=== PATIENT | female | born 1965 | race Caucasian/White ===

== ENCOUNTER 2017-04-05 09:30 | Outpatient (RCR) | payer BC, SELFPAY | END 2017-04-05 09:35 | disposition home or self-care (01) | LOC: PT 09:30 | PROVIDERS: Family Provider Nurse Practitioner Family; Visit Provider Podiatrist Foot & Ankle Surgery | DX: M72.2 Plantar fascial fibromatosis (principal) | CPT/HCPCS: 97010; 97014; 97016; 97033; 97035; 97110; 97140; 97760; G0283 ==

== ENCOUNTER → 2017-04-26 15:46 | Outpatient (CLI) | payer BC, SELFPAY ==
--- NOTE | 2017-04-26 | XR_ITS ---
XR hip BI w PEL1V CLINICAL INDICATION: ORDERING PHYSICIAN: Gracie Mock PATIENT AGE: 52 years COMPARISON: None FINDINGS: No fracture or dislocation. No lytic or blastic change. The joint spaces are well-preserved without significant arthritic change. IMPRESSION: Negative bilateral hips
== END ==
PROVIDERS: PCP Nurse Practitioner Family; Visit Provider Nurse Practitioner Family
DX: M25.551 Pain in right hip (principal); M25.552 Pain in left hip
CPT/HCPCS: 73521

== ENCOUNTER 2017-08-14 16:00 | Outpatient (RCR) | payer BC, SELFPAY | END 2017-08-14 16:01 | disposition home or self-care (01) | LOC: PT 16:00 | PROVIDERS: Family Provider Nurse Practitioner Family; PCP Nurse Practitioner Family; Visit Provider Orthopaedic Surgery Adult Reconstructive Orthopaedic Surgery | DX: M70.61 Trochanteric bursitis, right hip (principal) | CPT/HCPCS: 97010; 97033; 97035; 97110; 97163 ==

== ENCOUNTER 2017-08-14 16:30 | Outpatient (RCR) | payer BC, SELFPAY | END 2017-08-14 16:31 | disposition home or self-care (01) | LOC: PT 16:30 | PROVIDERS: Family Provider Nurse Practitioner Family; PCP Nurse Practitioner Family; Referring Provider Orthopaedic Surgery Adult Reconstructive Orthopaedic Surgery; Visit Provider Podiatrist Foot & Ankle Surgery | DX: G57.52 Tarsal tunnel syndrome, left lower limb (principal) | CPT/HCPCS: 97010; 97016; 97033; 97035; 97110; 97140; 97163 ==

== ENCOUNTER → 2017-09-05 14:37 | Outpatient (CLI) | payer BC, SELFPAY ==
--- NOTE | 2017-09-05 14:39 | MR_ITS ---
MR hip RT wo con HISTORY: Right hip pain worse with walking ITS.REASON: GLUTEAL MUSCLE TEAR ORDERING PHYSICIAN: Pollo Grigsby PATIENT AGE: 52 years TECHNIQUE: Multiplanar multiecho sequences performed without contrast COMPARISON: 04/26/2017 FINDINGS: No fracture or dislocation. No hip joint effusion. No abnormal bone marrow signal intensity of the right hip. No evidence of avascular necrosis. The gluteal muscles have an unremarkable appearance. Specifically, no evidence of tear of the gluteus medius or minimus muscles. There is a small cystic area in the base of the greater trochanter on the right at 4 mm nonspecific. IMPRESSION: Negative MRI of the right hip.
== END ==
PROVIDERS: Family Provider Nurse Practitioner Family; PCP Nurse Practitioner Family; Visit Provider Orthopaedic Surgery Adult Reconstructive Orthopaedic Surgery
DX: M70.61 Trochanteric bursitis, right hip (principal)
CPT/HCPCS: 73721

== ENCOUNTER 2018-03-20 14:00 | Outpatient (RCR) | payer BC, SELFPAY | END 2018-03-20 14:05 | disposition home or self-care (01) | LOC: PT 14:00 | PROVIDERS: Visit Provider Orthopaedic Surgery Adult Reconstructive Orthopaedic Surgery | DX: M25.551 Pain in right hip (principal); M70.61 Trochanteric bursitis, right hip | CPT/HCPCS: 97010; 97014; 97033; 97035; 97110; 97140; 97163; G0283 ==

== ENCOUNTER 2018-03-20 14:30 | Outpatient (RCR) | payer BC, SELFPAY | END 2018-03-20 14:35 | disposition home or self-care (01) | LOC: PT 14:30 | PROVIDERS: Visit Provider Nurse Practitioner Family | DX: G44.209 Tension-type headache, unspecified, not intractable (principal) | CPT/HCPCS: 97010; 97014; 97110; 97140; 97163; G0283 ==

== ENCOUNTER → 2018-08-23 15:48 | Outpatient (CLI) | payer BC, SELFPAY ==
--- NOTE | 2018-08-23 15:51 | MM_ITS ---
MM Dig screening mamm BI w/CAD CAD Screening COMPARISON: Digital mammograms with CAD 06/23/2016 and 02/21/2012 INDICATION: There is a history of breast cancer patient's mother diagnosed at age 50. There has been previous bilateral breast reduction surgery. TECHNIQUE: Standard CC and MLO images were obtained. R2 CAD reviewed. FINDINGS: Scattered fibroglandular densities are seen in the central portions and upper outer quadrants of both breasts. Findings are fairly symmetrical bilaterally. There is no suspicious lesion and there are no suspicious microcalcifications.. There is minimal postsurgical scarring in each breast inferior portions. IMPRESSION: Fibrofatty parenchyma with no suspicious lesion seen BI-RADS Category: 2 Benign Finding(s) RECOMMENDED FOLLOW-UP: 1YR - 1 YEAR FOLLOW-UP (A letter has been sent to the patient regarding results of the study.)
== END ==
PROVIDERS: PCP Nurse Practitioner Family; Visit Provider Nurse Practitioner Family
DX: Z12.31 Encounter for screening mammogram for malignant neoplasm of breast (principal)
CPT/HCPCS: 77067

== ENCOUNTER → 2019-04-01 08:49 | Outpatient (CLI) | payer BC, SELFPAY ==
--- NOTE | 2019-04-01 09:00 | FL_ITS ---
PROCEDURE: FL BARIUM SWALLOW CLINICAL INDICATION: dysphagia COMPARISON: No exams were available for comparison TECHNIQUE: In the upright position the patient was observed to swallow barium in both the AP and lateral view. The cervical esophagus was examined under fluoroscopy with images obtained. The patient was then placed prone in the right anterior oblique position and was observed to swallow barium with Valsalva technique . FLUOROSCOPY TIME: 46 seconds FINDINGS: There was no evidence of aspiration. There was normal peristalsis. No filling defects or mucosal abnormalities. No masses or strictures. No evidence of hiatal hernia IMPRESSION: Negative barium swallow. Dictated by: Burton Lni MD 04/01/2019 12:38 Electronically signed by Burton Lin MD in [place] 04/01/2019 12:38
== END ==
PROVIDERS: PCP Family Medicine; Visit Provider Surgery
DX: R13.10 Dysphagia, unspecified (principal)
CPT/HCPCS: 74220

== ENCOUNTER → 2019-04-11 15:29 | Outpatient (CLI) | payer BC, SELFPAY ==
--- NOTE | 2019-04-11 15:29 | US_ITS ---
PROCEDURE: US THYROID CLINICAL INDICATION: dysphagia COMPARISON: No exams were available for comparison FINDINGS: Right lobe: 4 x 1.1 x 1.1 cm Left lobe: 4.1 x 1.1 x 1.3 cm Isthmus: Unremarkable Additional findings: Homogeneous echogenicity. No discrete nodule IMPRESSION: Negative thyroid ultrasound Dictated by: Burton Lin MD 04/11/2019 17:45 Electronically signed by Burton Lin MD in [place] 04/11/2019 17:45
== END ==
PROVIDERS: PCP Psychiatry & Neurology Sleep Medicine; Visit Provider Surgery
DX: R13.14 Dysphagia, pharyngoesophageal phase (principal)
CPT/HCPCS: 76536

== ENCOUNTER → 2019-06-11 10:07 | Outpatient (CLI) | payer BC, SELFPAY ==
[2019-06-11 10:12] LABS: Adenovirus,PCR Not Detected (NotDetected); Bordetella Pertussis Not Detected (NotDetected); Chlamydophila Pneumoniae, PCR Not Detected (NotDetected); Coronavirus 19, PCR Not Detected (NotDetected); Coronavirus 229E Not Detected (NotDetected); Coronavirus NL63 Not Detected (NotDetected); Coronavirus OC43 Not Detected (NotDetected); Coronovirus HKU1,PCR Not Detected (NotDetected); Human Metapneumovirus Not Detected (NotDetected); Influenza A, PCR Not Detected (NotDetected); Influenza AH1, 2009 Not Detected (NotDetected); Influenza AH1, PCR Not Detected (NotDetected); Influenza AH3,PCR Not Detected (NotDetected); Influenza B, PCR Not Detected (NotDetected); Mycoplasma Pneumoniae, PCR Not Detected (NotDected); Parainfluenza 1, PCR Not Detected (NotDetected); Parainfluenza 2, PCR Not Detected (NotDetected); Parainfluenza 3, PCR Not Detected (NotDetected); Parainfluenza 4, PCR Not Detected (NotDetected); Respiratory Syncytial Virus Not Detected (NotDetected); Rhinovirus/Enterovirus Not Detected (NotDetected)
--- NOTE | 2019-06-12 15:43 | PC.NURSE ---
pt and Ramesh RN notified of negative COVID 19 results.
== END ==
PROVIDERS: Visit Provider Surgery
DX: Z01.818 Encounter for other preprocedural examination (principal)
CPT/HCPCS: 87581; 87633; 87798

== ENCOUNTER 2019-06-13 06:12 | Day surgery (SDC) | payer BC, SELFPAY ==
--- NOTE | 2019-06-10 13:21 | SUR.PREOP ---
06/10/19 @ 1321--PHONE CALL MADE TO PATIENT. PATIENT UNDERSTANDS THAT LAB WORK AND COVID TESTING NEEDS TO BE COMPLETED @ 1000 ON 06/11/19. PATIENT UNDERSTANDS IF LAB WORK AND COVID-19 TESTS ARE NOT COMPLETED BY 12PM ON THAT DATE, THE SURGERY SCHEDULED WILL BE CANCELLED AND RESCHEDULED FOR ANOTHER TIME.
[2019-06-11 13:47] VITALS: BMI 28.3
[2019-06-13] VITALS (9 sets, daily range): BP systolic 98–137; BP diastolic 47–72; PULSE 47–66; RESP 14–18; TEMP 36.2–36.3; O2SAT 95–100
--- NOTE | 2019-06-13 08:02 | P.PN_ITS ---
[facility] Anesthesia Checklist - Structural Data Admitted From: Home Planned Operative Procedure/s: egd/colonoscopy Consent for Planned Operative Procedure(s) Verified: Yes - Airway Assessment C-Spine Mobility Assessed: Yes TMJ Mobility Assessed: Yes Dentition: Good Dentition - Neurological Assessment Level of Consciousness: Awake, Alert, Appropriate - Anesthesia Plan Anesthesia Risk discussed: Yes Anesthesia Plan: Verified ASA Class: II Anesthesia Type: MAC [facility] History I have reviewed the patient's past medical history: Yes Medical History: Denies:: Cancer, Diabetes Mellitus Type 1, Diabetes Mellitus Type 2, Hypertension, Internal Pacemaker, MRSA, Seizures *Have you ever received a pneumonia vaccine?: No *Have you received a flu vaccine this season?: No Anesthesia experience/problems:: none Other Surgeries: Yes: Colonoscopy, EGD, Hernia Repair, Hysterectomy-Total, Hysterectomy-Partial, Tubal Ligation, Other. No: Pacemaker Amputation: No - *Social History Educational Level: Completed High School Smoking Status: Never smoker Alcohol Intake: never Substance Use Type: denies use *Occupational Status:: retired Housing: house Household Members: spouse *Travel in the last 8 weeks: None Family Hx:: Cancer, Diabetes
--- NOTE | 2019-06-13 08:15 | HMH.SCOPE ---
- Procedure: Date: 06/13/19 Procedure Performed:: Esophagogastroduodenoscopy with biopsy Colonoscopy with polypectomy Indications:: Dysphagia History of colon polyps Performing Provider:: Remberto Brooks MD Referring Provider:: . Sedation:: Monitored anesthesia care Procedure:: After informed consent was obtained the patient was taken to the endoscopy suite. Sedation ensued after the patient was transferred to the left lateral decubitus position. Pulse, blood pressure, and oxygen saturation were monitored throughout the procedure. The endoscope was advanced beyond the duodenal bulb. Retroflexion within the gastric lumen was accomplished. The gastroscope was carefully removed. Digital rectal exam revealed no significant abnormality. The colonoscope was placed in position. The entire colon was evaluated. The colonoscope was carefully removed and the patient was transferred to recovery in stable condition. Please see findings and specimens below for detail. Findings:: Inlet patch between 15 and 20 cm Gastroesophageal junction at 38 cm Mild streaking distal gastritis External hemorrhoidal tags Moderate to poor bowel preparation Significant lack of relaxation Scattered sigmoid diverticulosis (mild) Polyps (see specimens) Specimens:: Biopsy of gastric antrum Biopsy of gastric inlet patch between 15 and 20 cm Sessile/lobulated right colon polyp and adjacent polyp Transverse colon polyp (snare) Splenic flexure polyp Recommendations:: Follow-up pathology Timing of repeat colonoscopy is pending pathology but will likely be around 2 years secondary to history of significant polyps, limited bowel preparation, and lack of relaxation. Complications:: No immediate Estimated blood obtained (mL): 1
--- NOTE | 2019-06-13 08:55 | SUR.PHASEII ---
PAUL SCHWARTZ CRNA NOTIFIED THAT PT'S HEART RATE HAS BEEN 43-49. PT HR WAS 56 ON ADMIT. NO NEW ORDERS GIVEN. PT OK TO BE DISCHARGED HOME. R/V
== END 2019-06-13 09:16 | disposition home or self-care (01) ==
LOC: OUTP 06:13
PROVIDERS: PCP Family Medicine; Visit Provider Surgery
PROC: 0DJ08ZZ Inspection of Upper Intestinal Tract, Via Natural or Artificial Opening Endoscopic (ICD-10-PCS; CPT 43235; principal; 2019-06-13 07:30)
DX: R13.10 Dysphagia, unspecified (principal); K29.70 Gastritis, unspecified, without bleeding; Z86.010 Personal history of colon polyps; D12.2 Benign neoplasm of ascending colon; D12.3 Benign neoplasm of transverse colon
CPT/HCPCS: 45385; 45380; 43239; J2704

== ENCOUNTER → 2019-07-09 15:22 | Outpatient (CLI) | payer BC, SELFPAY ==
--- NOTE | 2019-07-09 15:29 | XR_ITS ---
PROCEDURE: XR FOOT WT BEARING LT 3V CLINICAL INDICATION: pain COMPARISON: FTL3 FOOT-LT-3 VIEWS from 07/10/2013 FINDINGS: No fracture or dislocation. No lytic or blastic change. There is normal mineralization. The joint spaces are well-preserved. No significant degenerative/arthritic changes. No erosive changes evident. Other findings:None. IMPRESSION: No acute findings. Dictated by: Burton Lin MD 07/09/2019 16:58 Electronically signed by Burton Lin MD in [place] 07/09/2019 16:58
--- NOTE | 2019-07-09 15:29 | XR_ITS ---
PROCEDURE: XR FOOT WT BEARING RT 3V CLINICAL INDICATION: pain Pain COMPARISON: FTL3 FOOT-LT-3 VIEWS from 07/10/2013 FINDINGS: No fracture or dislocation. No lytic or blastic change. There is normal mineralization. The joint spaces are well-preserved. No significant degenerative/arthritic changes. No erosive changes evident. Other findings:None. IMPRESSION: No acute findings. Dictated by: Burton Lin MD 07/09/2019 16:57 Electronically signed by Burton Lin MD in [place] 07/09/2019 16:57
== END ==
PROVIDERS: PCP Family Medicine; Visit Provider Podiatrist
DX: M79.672 Pain in left foot (principal); M79.671 Pain in right foot
CPT/HCPCS: 73630

== ENCOUNTER → 2019-08-20 15:19 | Outpatient (CLI) | payer BC, SELFPAY ==
[2019-08-20 16:21] LABS: Basophils # 0.1 K/mm3 (0-0.2); Eosinophils # 0.1 K/mm3 (0.0-0.4); Hematocrit 35.4 % (37.0-47.0); Lymphocytes % 35.1 % (10-50); Mean Corpuscular HGB Conc 33.8 g/dL (31.8-35.4); Mean Corpuscular Hemoglobin 31.4 pg (27.0-31.2); Mean Corpuscular Volume 92.7 fl (81-99); Monocytes # 0.2 K/mm3 (0.1-1.0); Monocytes % 4.1 % (1.7-9.3); Neutrophils # 3.3 K/mm3 (1.8-7.8); Neutrophils % 58.8 % (37.0-80.0); Platelet Count 332 K/mm3 (142-424); Red Blood Count 3.82 M/mm3 (4.20-5.40); Red Cell Distribution Width 12.9 % (11.5-17.5); White Blood Count 5.7 K/mm3 (4.8-10.8)
[2019-08-20 18:05] LABS: Alanine Aminotransferase 14 U/L (12-78); Albumin Level 4.2 g/dl (3.5-5.0); Albumin/Globulin Ratio 1.9 (1.1-1.8); Alkaline Phosphatase 94 U/L (38-126); Anion Gap 11.1 mEq/L (5-15); Aspartate Amino Transferase 25 U/L (14-36); Bilirubin,Total 0.4 mg/dl (0.2-1.3); Blood Urea Nitrogen 16 mg/dl (7-17); Calcium 9.2 mg/dl (8.4-10.2); Carbon Dioxide 26 mmol/L (22.0-30.0); Chloride 107 mmol/L (98-107); Creatine Kinase 96 U/L (30-135); Estimated Glomerular Filt Rate 75 ml/min (>60); GFR (African American) 91 ML/MIN (>60); Globulin 2.2 g/dL (1.3-3.2); Glucose 86 mg/dl (74-100); Potassium 4.1 mmoL/L (3.5-5.1); Sodium 140 mmol/L (136-145); Total Protein,Serum 6.4 g/dl (6.3-8.2); Uric Acid 4.1 mg/dl (2.5-6.2)
[2019-08-20 18:11] LABS: C-Reactive Protein 0.4 mg/L (0-4)
[2019-08-20 18:37] LABS: Thyroid Stimulating Hormone 3.92 uIU/mL (0.465-4.68)
[2019-08-22 11:18] LABS: Hep A Ab, IgM Negative (Negative); Hepatitis B Core Antibody IgM Negative (Negative); Hepatitis B Surface Antigen Negative (Negative)
[2019-08-22 12:34] LABS: Hepatitis C Antibody 0.1 s/co ratio (0.0-0.9)
[2019-08-22 17:04] LABS: RA Latex Turbid. <10.0 IU/mL (0.0-13.9)
[2019-08-23 11:24] LABS: QuantiFERON-TB Gold Plus Negative (Negative)
== END ==
PROVIDERS: Visit Provider Internal Medicine Rheumatology
DX: M06.9 Rheumatoid arthritis, unspecified (principal); M19.079 Primary osteoarthritis, unspecified ankle and foot; M25.50 Pain in unspecified joint; M54.9 Dorsalgia, unspecified; M79.643 Pain in unspecified hand; R20.0 Anesthesia of skin; Z79.899 Other long term (current) drug therapy
CPT/HCPCS: 36415; 80053; 80074; 82550; 84443; 84550; 84681; 85025; 86140; 86431; 86480

== ENCOUNTER → 2019-09-10 15:53 | Outpatient (CLI) | payer BC, SELFPAY ==
--- NOTE | 2019-09-10 15:56 | MM_ITS ---
PROCEDURE: MM DIG SCREENING MAMM BI W/CAD Digital Breast Tomosynthesis Included CLINICAL INDICATION: SCREENING There is a history of breast cancer patient's mother diagnosed at age 50. There has been previous bilateral breast reduction surgery. COMPARISON: MG DMBAV DIG MAMM- ESTEBAN ADD VIEWS from 08/23/2012 MG DMSB DIG MAMM-SCREEN ESTEBAN W/CAD from 06/23/2016 MG DIG MAMM-SCREEN ESTEBAN from 08/23/2018 TECHNIQUE: Standard CC and MLO images and 3D Tomosynthesis was obtained. R2 CAD reviewed. FINDINGS: Scattered fibroglandular densities are seen in both breasts on a background of primarily fatty breast parenchyma. There are stable asymmetric glandular elements in the superior aspects of both breasts. There are couple of benign-appearing microcalcifications in each breast. There is no suspicious lesion in either breast and no suspicious microcalcifications. IMPRESSION: Fibrofatty parenchyma with no suspicious lesions seen BI-RAD Category: 2 Benign Finding(s) FOLLOW-UP: 1YR 1 Year Follow-up (A letter has been sent to the patient regarding results of the study.) Dictated Dr. Gene Fonseca MD 09/13/2019 12:10 Dr. Gene Brothers MD in [place] 09/13/2019 12:10
== END ==
PROVIDERS: PCP Family Medicine; Visit Provider Family Medicine
DX: Z12.31 Encounter for screening mammogram for malignant neoplasm of breast (principal)
CPT/HCPCS: 77063; 77067

== ENCOUNTER 2019-09-10 22:07 | Emergency (ER) | payer BC, SELFPAY ==
--- NOTE | 2019-09-10 22:14 | HMH.EDGENADL ---
ED Disposition Clinical Impression: Cutaneous abscess Qualifiers: Site of cutaneous abscess: face Qualified Code(s): L02.01 - Cutaneous abscess of face Disposition: Home, Self-Care Condition on Discharge: Good Instructions: DI for Incision and Drainage of a Skin Abscess, DI for Skin Abscess Additional Instructions: Clindamycin as prescribed. Additional instructions for ABSCESS: Clean area with soap and water daily. Return to the emergency department if increasing pain, swelling, redness, redstreaks or fever greater than 101 degrees. Prescriptions: clindamycin HCL [Clindamycin HCl 300mg Cap] 300 mg PO Q6 #20 cap Transmission Status: Pending to [facility] Referrals: Toña Molina MD [Primary Care Provider] - - Critical Care Critical Care Time: No Attestation: On 09/10/19, the high probability of a clinically significant, sudden or life threatening deterioration of the following system(s) required my full and direct attention, intervention and personal management. The time I documented below is in addition to time spent performing reported procedures but includes the following listed in this critical care notation. Medical Decision Making - Tal Inquiry Pt receiving controlled substance: No Vital Signs: 09/10/19 22:19 Temperature 98.5 F Temperature Source Oral Pulse Rate [Right] 63 Respiratory Rate 18 Blood Pressure [Right Arm] 126/71 Blood Pressure Mean [Right Arm] 89 Blood Pressure Source [Right Arm] Automatic Cuff Blood Pressure Position [Right Arm] Sitting 02 Sat by Pulse Oximetry 97 Oxygen Delivery Method Room Air General Adult HPI - General Stated complaint: possible spider bite R eye Time Seen by Provider: 09/10/19 22:22 - History of Present Illness HPI narrative: She has a sore beside her right eye. It started this morning and got worse throughout the day. Some mild swelling around her eye. She states she walked through a cobweb this morning,. She thinks it might be a spider bite. - Related Data Home Medications Medication Instructions Recorded Confirmed omeprazole 40 mg capsule,delayed 40 mg PO DAILY 03/27/19 07/30/19 release Previous Rx's Medication Instructions Recorded ibuprofen 800 mg tablet 800 mg PO BID #60 tab 07/09/19 clindamycin HCL [Clindamycin HCl 300 mg PO Q6 #20 cap 09/10/19 300mg Cap] Allergies Allergy/AdvReac Type Severity Reaction Status Date / Time morphine [MORPHINE] Allergy Unknown ITCHING Verified 07/30/19 14:33 Sulfa (Sulfonamide Allergy Unknown NA-NAUSEA/V Verified 07/30/19 14:33 Antibiotics) OMITING [SULFA (SULFONAMIDE ANTIBIOTICS)] [facility] History - Hepatitis A Screen Attestation statement:: This patient has been screened for Hepatitis A risk factors. I have reviewed the patient's past medical history: Yes Medical History: Reports:: Gastroesophageal Reflux Disease(GERD) Denies:: Cancer, Diabetes Mellitus Type 1, Diabetes Mellitus Type 2, Hypertension, Internal Pacemaker, MRSA, Seizures Other Medical History: Reports: Sinus Problems Other Surgeries: Yes: Colonoscopy, EGD, Hernia Repair, Hysterectomy-Total, Hysterectomy-Partial, Tubal Ligation, Other. No: Pacemaker Amputation: No Comment: breast reduction,rt shoulder, elbow and wrist sx, left foot sx - Social History Smoking Status: Never smoker Alcohol Intake: never Substance Use Type: denies use Occupational Status: retired Housing: house Household Members: spouse Family Hx:: Cancer, Diabetes ROS Obtained: Yes Systems reviewed as appropriate & no additional complaints - Constitutional Constitutional: Denies fever(s) - Integumentary/Breasts Skin/Breast: Reports as per HPI, Reports boil Physical Exam - General General appearance: alert, in no apparent distress - Head Head exam: atraumatic, normocephalic - Eye Eye exam: Present: normal appearance, PERRL, EOMI - Expanded Eye Exam Comment: 3 mm pu
[2019-09-10 22:19] VITALS: BP 126/71; PULSE 63; RESP 18; TEMP 36.9; O2SAT 97; BMI 30.4
[2019-09-10 22:42] VITALS: BP 121/71; PULSE 72; RESP 18; TEMP 36.7
== END 2019-09-10 22:44 | disposition home or self-care (01) ==
PROVIDERS: Emergency Provider Emergency Medicine; PCP Family Medicine
DX: L02.01 Cutaneous abscess of face (principal); K21.9 Gastro-esophageal reflux disease without esophagitis; Z88.2 Allergy status to sulfonamides
CPT/HCPCS: 10060; 99281; 99282

== ENCOUNTER 2019-10-16 15:53 | Emergency (ER) | payer BC, SELFPAY ==
[2019-10-16 16:02] VITALS: BP 128/90; PULSE 61; RESP 18; O2SAT 97; BMI 30.1
[2019-10-16 16:13] LABS: Apearance,Urine Clear (Clear); Color,Urine Yellow (Yellow)
[2019-10-16 16:14] LABS: Bilirubin,Urine Negative (Negative); Blood, Urine Negative (Negative); Glucose,Urine (UA) Negative (Negative); Ketones,Urine Negative (Negative); PH,Urine 5.5 (5.0-8.5); Protein,Urine Negative (Negative); UTC Leukocyte Esterase,Urine Negative (Negative); UTC Nitrate,Urine Negative (Negative); Urobilinogen,Urine 0.2 EU/dl (0.2)
--- NOTE | 2019-10-16 16:21 | XR_ITS ---
PROCEDURE: XR KUB CLINICAL INDICATION: ABD PAIN COMPARISON: CT ABDPELW CT ABD PELVIS W/ CONTRAST from 08/19/2016 FINDINGS: Mild amount of retained colonic feces. Nonspecific pelvic calcifications are present consistent with phleboliths. There is a small calcific density in the left mid abdominal region may be due to small renal stone at 2 mm. IMPRESSION: Moderate amount of colonic feces with possible left nephrolithiasis. Dictated by: Burton Lin MD 10/16/2019 17:14 Burton Lin MD in [place] 10/16/2019 17:14
--- NOTE | 2019-10-16 16:22 | HMH.EDUTC ---
[facility] [place] Clinical Impression: Constipation Qualifiers: Constipation type: unspecified constipation type Qualified Code(s): K59.00 - Constipation, unspecified Disposition: Home, Self-Care Condition on Discharge: Good Instructions: Kidney Stones -- Adult, Constipation, DI for Constipation Additional Instructions: Increase dietary fiber intake and increase Fluid intake *Over the counter Magnesium Citrate and/or Mirlax may help with Constipation Return if needed Follow up with Family doctor if no improvement or any worsening of symptoms Straight to ER if any life threatening symptoms Prescriptions: polyethylene glycoL 3350 [Miralax 17gm Packet] 17 gm PO DAILY #30 packet Transmission Status: Received by [facility] Referrals: Toña Molina MD [Primary Care Provider] - As needed Time of Disposition: 17:25 Medical Decision Making - Tal Inquiry Pt receiving controlled substance: No Tal was queried for this patient: No Vital Signs: 10/16/19 16:02 10/16/19 17:34 Temperature 98.0 F Temperature Source Oral Pulse Rate 61 Pulse Rate [Radial] 61 Respiratory Rate 18 18 Blood Pressure 128/90 Blood Pressure [Right Arm] 128/90 Blood Pressure Mean [Right Arm] 102 Blood Pressure Source Automatic Cuff Blood Pressure Source [Right Arm] Automatic Cuff Blood Pressure Position Sitting Blood Pressure Position [Right Arm] Sitting 02 Sat by Pulse Oximetry 97 Oxygen Delivery Method Room Air Room Air - Lab Data Lab Results 10/16/19 16:05: Urine Color Yellow, Urine Appearance Clear, Urine pH 5.5, Ur Specific Cushing 1.020, Urine Protein Negative, Urine Glucose (UA) Negative, Urine Ketones Negative, Urine Blood Negative, Urine Nitrate Negative, Urine Bilirubin Negative, Urine Urobilinogen 0.2, Ur Leukocyte Esterase Negative Orders (Tests/Meds): ED MEDICATIONS Discontinued Medications Generic Name Dose Route Start Last Admin Trade Name Freq PRN Reason Stop Dose Admin Ketorolac Tromethamine 60 mg 10/16/19 17:05 10/16/19 17:11 Toradol 60mg/2ml Vial IM 10/16/19 17:06 60 mg ONCE ONE Administration - Radiology Data #1 Image(s): KUB Image Reviewed: Yes I have reviewed radiologist's interpretation Moderate amount of colonic feces with possible left nephrolithiasis. Medical Decision Narrative: Patient advised that she took Ibuprofen around 6am this morning Discussed with patient about pain and complaint and recommended transfer to the ED for further work up and evaluation and discussed with patient about transfer and ?kidney stone in left kidney and Radiologist reading xray with moderate amount of colonic feces and she advised that she would try to take something to help with Constipation and follow up immediately if no improvement or any worsening of symptoms [facility] [place] HPI - General Stated complaint: Abd&Back Pain Time Seen by Provider: 10/16/19 16:22 Mode of Arrival: Ambulatory Source of Information: Patient Limitations: No Limitations Description of Symptoms (Recalled from Triage Doc. by RN): cramping in lower back and stomach. HEENT Symptoms (Recalled from RN notes): No Resp Symptoms (Recalled from RN notes): No Skin Symptoms (Recalled from RN notes): No MS Symptoms (Recalled from RN notes): No Functional Status (Recalled from RN notes): wnl - History of Present Illness Provider Complaint: Patient states that a couple days ago she was having achy like feeling in her lower back area and now that has stopped but she is having cramping like pain in her lower abdomen for the last 2 days States that she was told about a year or so ago that she had a stone in one of her kidneys but not sure if she ever passed it or not States that cramping like pain is constant and has kept her up at night State that she thought she may have been constipated but not sure so she took exlax and has had soft stool for last couple of days States that today she is still having cramp
[2019-10-16 17:34] VITALS: BP 128/90; PULSE 61; RESP 18; TEMP 36.7; O2SAT 97
== END 2019-10-16 17:35 | disposition home or self-care (01) ==
PROVIDERS: Emergency Provider Nurse Practitioner; PCP Family Medicine
DX: K59.00 Constipation, unspecified (principal); K21.9 Gastro-esophageal reflux disease without esophagitis; Z88.2 Allergy status to sulfonamides; Z88.5 Allergy status to narcotic agent
CPT/HCPCS: 74018; 81003; 96372; 99202

== ENCOUNTER → 2019-12-30 16:22 | Outpatient (CLI) | payer BC, SELFPAY ==
--- NOTE | 2019-12-30 16:26 | XR_ITS ---
PROCEDURE: XR CERVICAL SPINE 5V CLINICAL INDICATION: Cervicalgia COMPARISON: No exams were available for comparison FINDINGS: No fracture or dislocation. No lytic or blastic change. There is normal mineralization. The joint spaces are well-preserved. No significant degenerative/arthritic changes. No erosive changes evident. Other findings:None. IMPRESSION: No acute findings. Dictated by: Burton Lin MD 12/30/2019 17:02 Burton Lin MD in [place] 12/30/2019 17:02
== END ==
PROVIDERS: PCP Family Medicine; Visit Provider Family Medicine
DX: M54.2 Cervicalgia (principal)
CPT/HCPCS: 72050

== ENCOUNTER → 2020-02-19 09:36 | Outpatient (CLI) | payer BC, SELFPAY ==
[2020-02-19 10:13] LABS: Basophils # 0.1 K/mm3 (0-0.2); Basophils % 1.2 % (0.1-2.0); Eosinophils % 0.7 % (0.1-12.0); Hemoglobin 13.5 g/dL (12.2-16.2); Lymphocytes # 2.2 K/mm3 (0.7-4.5); Lymphocytes % 39.9 % (10-50); Mean Corpuscular HGB Conc 32.1 g/dL (31.8-35.4); Mean Corpuscular Hemoglobin 30.5 pg (27.0-31.2); Mean Corpuscular Volume 94.9 fl (81-99); Mean Platelet Volume 7.9 fl (7.4-10.4); Monocytes # 0.2 K/mm3 (0.1-1.0); Monocytes % 4.4 % (1.7-9.3); Neutrophils % 53.7 % (37.0-80.0); Platelet Count 370 K/mm3 (142-424); Red Blood Count 4.42 M/mm3 (4.20-5.40); Red Cell Distribution Width 13.5 % (11.5-17.5); White Blood Count 5.5 K/mm3 (4.8-10.8)
[2020-02-19 10:42] LABS: Erythrocyte Sedimentation Rate 15 mm/hr (0-30)
[2020-02-19 11:29] LABS: Alanine Aminotransferase 13 U/L (12-78); Albumin Level 4.2 g/dl (3.5-5.0); Albumin/Globulin Ratio 1.6 (1.1-1.8); Alkaline Phosphatase 84 U/L (38-126); Anion Gap 10.4 mEq/L (5-15); Aspartate Amino Transferase 22 U/L (14-36); Bilirubin,Total 0.6 mg/dl (0.2-1.3); Blood Urea Nitrogen 13 mg/dl (7-17); Calcium 9.9 mg/dl (8.4-10.2); Carbon Dioxide 27 mmol/L (22.0-30.0); Chloride 107 mmol/L (98-107); Estimated Glomerular Filt Rate 75 ml/min (>60); GFR (African American) 91 ML/MIN (>60); Globulin 2.7 g/dL (1.3-3.2); Glucose 99 mg/dl (74-100); Potassium 4.4 mmoL/L (3.5-5.1); Sodium 140 mmol/L (136-145); Total Protein,Serum 6.9 g/dl (6.3-8.2)
[2020-02-19 11:37] LABS: C-Reactive Protein 0.6 mg/L (0-4)
== END ==
PROVIDERS: Visit Provider Internal Medicine Rheumatology
DX: M25.50 Pain in unspecified joint (principal); Z79.1 Long term (current) use of non-steroidal anti-inflammatories (NSAID)
CPT/HCPCS: 36415; 80053; 85025; 85651; 86140

== ENCOUNTER 2020-03-01 18:12 | Emergency (ER) | payer BC, SELFPAY ==
[2020-03-01 18:15] VITALS: BP 122/75; PULSE 78; RESP 20; TEMP 36.9; O2SAT 98; BMI 29.5
--- NOTE | 2020-03-01 18:36 | HMH.EDUTC ---
[facility] [place] Disposition Clinical Impression: Sinusitis Qualifiers: Sinusitis location: unspecified location Chronicity: unspecified Qualified Code(s): J32.9 - Chronic sinusitis, unspecified Disposition: Home, Self-Care Condition on Discharge: Good Instructions: Sinusitis, Sinus Headache, DI for Sinusitis, DI for COVID-19 (Suspected or Confirmed ), Coronavirus Disease 2019, Preventing the Spread of Coronavirus Discharge Instructions Additional Instructions: *Monitor Temp, Over the counter Motrin or Tylenol as directed/as needed Tylenol every 4 hours and Motrin every 6 hours (as long as your family doctor has told you that you can take it) for fever or pain. and straight to ER if unable to lower temp less than 101.0 after medication given *Warm salt water gargles may help to soothe the throat *Throat Lozenges *Warm fluids like tea with honey may help to soothe the throat *Sleep elevated *Humidifier/Vaporizer Your throat swab was sent for culture. Those results are typically sent to your primary care. Be sure to follow up in 2-3 days with your family doctor/primary care physician if no improvement so they can review those result and treat if necessary. If you don?t have a primary care doctor, I recommend you get one but in the mean time, you will have to return to a walk in clinic Follow up IMMEDIATELY for new or worsening symptoms or no Noticeable improvement over the next 48-72 hours. 911 for difficulty breathing or swallowing You were tested for today for COVID19 your test result should be back in the next 24-48 hours, you may call to the [facility] to see if your test results are back in the next 48 hours [phone] [facility] hours are 9am-9pm You was given a handout with instructions for Self Quarantine and Self isolation for while you wait on test results and what to do if they are positive If you are positive the Health Dept will be contacting you also Prescriptions: Azithromycin [Z-Fidel 250mg Tab] 250 mg PO DIRECTED #6 tab Transmission Status: Received by [facility] Referrals: Toña Molina MD [Primary Care Provider] - Medical Decision Making - Tal Inquiry Pt receiving controlled substance: No Tal was queried for this patient: No Vital Signs: 03/01/20 18:15 03/01/20 19:04 Temperature 98.4 F 98.4 F Temperature Source Oral Pulse Rate 78 Pulse Rate [Right Brachial] 78 Respiratory Rate 20 20 Blood Pressure 122/75 Blood Pressure [Right Arm] 122/75 Blood Pressure Mean [Right Arm] 90 Blood Pressure Source [Right Arm] Automatic Cuff Blood Pressure Position [Right Arm] Sitting 02 Sat by Pulse Oximetry 98 Oxygen Delivery Method Room Air - Lab Data Lab results reviewed: Yes: I reviewed the patient's lab results. Lab Results 03/01/20 18:23: Influenza Type A Ag Negative, Influenza Type B Ag Negative 03/01/20 18:23: Strep Scn Rapid Clinic Negative Orders (Tests/Meds): ED MEDICATIONS Discontinued Medications Generic Name Dose Route Start Last Admin Trade Name Alexis PRN Reason Stop Dose Admin Methylprednisolone Sodium Succinate 125 mg 03/01/20 18:41 03/01/20 18:53 Methylprednisolone Sod Succ 125mg Vial IM 03/01/20 18:42 125 mg ONCE ONE Administration ORDERS Category Date Time Status Covid-19 Nasal PCR ([facility]) Routine Lab 03/01/20 18:20 Received Strep Screen Confirmation Stat Micro 03/01/20 18:23 [facility]ceived [facility] HPI - General Stated complaint: covid test Time Seen by Provider: 03/01/20 18:36 Mode of Arrival: Ambulatory Source of Information: Patient Limitations: No Limitations Description of Symptoms (Recalled from Triage Doc. by RN): PATIENT C/O HEADACHE, NASAL DRAINAGE, COUGH, AND NAUSEA X 2 DAYS HEENT Symptoms (Recalled from RN notes): No Resp Symptoms (Recalled from RN notes): No Skin Symptoms (Recalled from RN notes): No MS Symptoms (Recalled from RN notes): No Functional Status (Recalled from RN notes): WNL - History of Present Illness Provider
[2020-03-01 18:46] LABS: UTC Influenza A Antigen Negative (Negative); UTC Strep Screen (Rapid) Negative (Negative)
[2020-03-01 18:48] LABS: UTC Influenza B Antigen Negative (Negative)
[2020-03-01 19:04] VITALS: BP 122/75; PULSE 78; RESP 20; TEMP 36.9; O2SAT 98
== END 2020-03-01 19:07 | disposition home or self-care (01) ==
PROVIDERS: Emergency Provider Nurse Practitioner; PCP Family Medicine
DX: Z20.822 Contact with and (suspected) exposure to COVID-19 (principal); J32.9 Chronic sinusitis, unspecified; K21.9 Gastro-esophageal reflux disease without esophagitis
CPT/HCPCS: 87804; 87880; 96372; 99202; G0463; U0003

== ENCOUNTER 2020-09-17 18:25 | Emergency (ER) | payer BC, SELFPAY ==
[2020-09-17 18:26] VITALS: BP 140/71; PULSE 66; RESP 16; TEMP 37; O2SAT 98; BMI 33.6
--- NOTE | 2020-09-17 18:47 | CT_ITS ---
PROCEDURE INFORMATION: Exam: CT Abdomen And Pelvis Without Contrast Exam date and time: 09/17/2020 6:47 PM Age: 55 years old Clinical indication: Abdominal pain; Localized; Patient HX: Lower abd pain with nausea TECHNIQUE: Imaging protocol: Computed tomography of the abdomen and pelvis without contrast. Radiation optimization: All CT scans at this facility use at least one of these dose optimization techniques: automated exposure control; mA and/or kV adjustment per patient size (includes targeted exams where dose is matched to clinical indication); or iterative reconstruction. COMPARISON: ABDPELW CT ABD PELVIS W/ CONTRAST 08/19/2016 11:14 AM FINDINGS: Liver: Normal. No mass. Gallbladder and bile ducts: Normal. No calcified stones. No ductal dilation. Pancreas: Normal. No ductal dilation. Spleen: Normal. No splenomegaly. Adrenal glands: Normal. No mass. Kidneys and ureters: Two punctate calculi are seen in the right kidney lower pole. No hydronephrosis. On the left, 2 calculi are seen in the upper pole. The larger measures 4 mm. These are nonobstructing. No hydronephrosis. Stomach and bowel: Unremarkable. No obstruction. No mucosal thickening. Appendix: No evidence of appendicitis. Intraperitoneal space: Unremarkable. No free air. No significant fluid collection. Vasculature: Unremarkable. No abdominal aortic aneurysm. Lymph nodes: Unremarkable. No enlarged lymph nodes. Urinary bladder: The bladder is under distended. Reproductive: Status post hysterectomy. Bones/joints: Unremarkable. No acute fracture. Soft tissues: Unremarkable. IMPRESSION: 1. No acute intra-abdominal pathology. 2. Low burden bilateral nonobstructing nephrolithiasis.
--- NOTE | 2020-09-17 18:49 | HMH.EDABDPAI ---
ED Disposition Condition on Discharge: Good - Critical Care Critical Care Time: No <Wilner Sharif - Last Filed: 09/17/20 19:32> <Edenilson Moreno - Last Filed: 09/17/20 21:33> Clinical Impression: Abdominal pain Qualifiers: Abdominal location: lower abdomen, unspecified Qualified Code(s): R10.30 - Lower abdominal pain, unspecified Disposition: Home, Self-Care Instructions: DI for Acute Abdominal Pain Additional Instructions: call pcp in am Referrals: Toña Molina MD [Primary Care Provider] - Attestation: On 09/17/20, the high probability of a clinically significant, sudden or life threatening deterioration of the following system(s) required my full and direct attention, intervention and personal management. The time I documented below is in addition to time spent performing reported procedures but includes the following listed in this critical care notation. Medical Decision Making - Medical Records Medical records reviewed: Yes: I reviewed the patient's medical records. - Tal Inquiry Pt receiving controlled substance: No - Lab Data Lab results reviewed: Yes: I reviewed the patient's lab results. Result diagrams: 09/17/20 18:46 09/17/20 18:46 <Wilner Sharif - Last Filed: 09/17/20 19:32> - Lab Data Result diagrams: 09/17/20 18:46 09/17/20 18:46 - CT Data CT Scan: Abdomen, Pelvis Time Received: 21:[address] Reviewed: Yes: I have viewed the radiologist's interpretation Preliminary Findings: Abnormal (see report ) <Edenilson Moreno - Last Filed: 09/17/20 21:33> Vital Signs: 09/17/20 18:26 Temperature 98.6 F Temperature Source Oral Pulse Rate [Radial] 66 Respiratory Rate 16 Blood Pressure [Right Arm] 140/71 Blood Pressure Mean [Right Arm] 94 Blood Pressure Position [Right Arm] Sitting 02 Sat by Pulse Oximetry 98 Oxygen Delivery Method Room Air - Lab Data Lab Results 09/17/20 18:30: Urine Color Yellow, Urine Appearance Clear, Urine pH 6.0, Ur Specific [place] <= 1.005, Urine Protein Negative, Urine Glucose (UA) Negative, Urine Ketones Negative, Urine Blood Negative, Urine Nitrate Negative, Urine Bilirubin Negative, Urine Urobilinogen 0.2, Ur Leukocyte Esterase 1+ A, Urine RBC None, Urine WBC Occasional, Ur Squamous Epith Cells Occasional, Urine Bacteria None 09/17/20 18:46: WBC 8.1, RBC 4.13 L, Hgb 12.6, Hct 36.3 L, MCV 87.9, MCH 30.6, MCHC 34.8, RDW 13.4, Plt Count 389, MPV 7.8, Neut % (Auto) 64.8, Lymph % (Auto) 29.8, Stanton % (Auto) 3.9, Eos % (Auto) 0.6, Baso % (Auto) 0.9, Neut # (Auto) 5.2, Lymph # (Auto) 2.4, Stanton # (Auto) 0.3, Eos # (Auto) 0.1, Baso # (Auto) 0.1 09/17/20 18:46: Sodium 141, Potassium 3.6, Chloride 108 H, Carbon Dioxide 24, Anion Gap 12.6, BUN 15, Creatinine 0.90, Estimated Creat Clear 98, Estimated GFR 65, Est GFR ( Amer) 79, Glucose 88, Calcium 9.2, Total Bilirubin 0.4, AST 35, ALT 26, Alkaline Phosphatase 108, Total Protein 7.4, Albumin 4.6, Globulin 2.8, Albumin/Globulin Ratio 1.6 09/17/20 18:46: Lipase 123 Orders (Tests/Meds): ORDERS Category Date Time Status Urine Culture Stat Micro 09/17/20 18:30 Received Medical Decision Narrative: Labs reassuring. No signs of biliary obstruction or pancreatitis. No UTI. CT scan pending. Patient care transferred to Dr. Moreno at 1999. (Wilner Sharif) asked pt to call pcp in am (Edenilson Moreno) Abdominal Pain HPI - General Mode of Arrival: Ambulatory Limitations: No Limitations Description of Symptoms (Recalled from ER Triage Doc. by RN): TO ED PER [employer] CAR WITH C/O LOWER ABD PAIN LOWER BACK PAIN X 2 WEEKS +NAUSEA. PT SEEN BY PCP YESTERDAY. DENIES SICK CONTACTS, FEVER, CHILLS. <Wilner Sharif - Last Filed: 09/17/20 19:32> - History of Present Illness MD complaint: abdominal pain Onset (ago): week(s) Consistency: intermittent Location: diffuse Severity: moderate Quality: cramping Associated symptoms: denies other symptoms <Edenilson Moreno - Last Filed: 09/17/20 21:33> -
[2020-09-17 19:09] LABS: Microscopic, Urine URINE MICROSCOPIC (MICROSCOPIC)
[2020-09-17 19:11] LABS: Basophils # 0.1 K/mm3 (0-0.2); Basophils % 0.9 % (0.1-2.0); Eosinophils # 0.1 K/mm3 (0.0-0.4); Eosinophils % 0.6 % (0.1-12.0); Hematocrit 36.3 % (37.0-47.0); Hemoglobin 12.6 g/dL (12.2-16.2); Lymphocytes # 2.4 K/mm3 (0.7-4.5); Lymphocytes % 29.8 % (10-50); Mean Corpuscular HGB Conc 34.8 g/dL (31.8-35.4); Mean Corpuscular Hemoglobin 30.6 pg (27.0-31.2); Mean Corpuscular Volume 87.9 fl (81-99); Mean Platelet Volume 7.8 fl (7.4-10.4); Monocytes # 0.3 K/mm3 (0.1-1.0); Monocytes % 3.9 % (1.7-9.3); Neutrophils # 5.2 K/mm3 (1.8-7.8); Neutrophils % 64.8 % (37.0-80.0); Platelet Count 389 K/mm3 (142-424); Red Blood Count 4.13 M/mm3 (4.20-5.40); Red Cell Distribution Width 13.4 % (11.5-17.5); White Blood Count 8.1 K/mm3 (4.8-10.8)
[2020-09-17 19:12] LABS: Appearance,Urine CLEAR (Clear); Bilirubin,Urine Negative (Negative); Blood, Urine Negative (Negative); Color,Urine YELLOW (Yellow); Glucose,Urine (UA) Negative (Negative); Ketones,Urine Negative (Negative); Leukocyte Esterase,Urine 1+ (Negative); Nitrate,Urine Negative (Negative); Protein,Urine Negative (Negative); Specific Gravity, Urine <= 1.005 (1.005-1.030); Urobilinogen,Urine 0.2 EU/dl (0.2)
[2020-09-17 19:17] LABS: Chloride 108 mmol/L (98-107); Potassium 3.6 mmoL/L (3.5-5.1); Sodium 141 mmol/L (136-145)
[2020-09-17 19:19] LABS: Alanine Aminotransferase 26 U/L (12-78); Aspartate Amino Transferase 35 U/L (14-36); Blood Urea Nitrogen 15 mg/dl (7-17); Creatinine Clearance Estimated 98 mL/min (50-200); Estimated Glomerular Filt Rate 65 ml/min (>60); GFR (African American) 79 ML/MIN (>60)
[2020-09-17 19:20] LABS: Albumin Level 4.6 g/dl (3.5-5.0); Albumin/Globulin Ratio 1.6 (1.1-1.8); Alkaline Phosphatase 108 U/L (38-126); Anion Gap 12.6 mEq/L (5-15); Bilirubin,Total 0.4 mg/dl (0.2-1.3); Calcium 9.2 mg/dl (8.4-10.2); Carbon Dioxide 24 mmol/L (22.0-30.0); Globulin 2.8 g/dL (1.3-3.2); Glucose 88 mg/dl (74-100); Lipase 123 U/L (23-300); Total Protein,Serum 7.4 g/dl (6.3-8.2)
[2020-09-17 19:24] LABS: WBC,Urine Occasional #/hpf (0-3)
[2020-09-17 19:25] LABS: Squamous Epithelial Cell,Urine Occasional #/hpf (0-5)
[2020-09-17 21:38] VITALS: BP 149/77; PULSE 76; RESP 18; TEMP 36.7; O2SAT 99
== END 2020-09-17 21:41 | disposition home or self-care (01) ==
PROVIDERS: Emergency Provider Emergency Medicine; PCP Family Medicine
DX: R10.30 Lower abdominal pain, unspecified (principal); K58.9 Irritable bowel syndrome, unspecified; K21.9 Gastro-esophageal reflux disease without esophagitis
CPT/HCPCS: 74176; 80053; 81001; 83690; 85025; 87086; 99283

== ENCOUNTER → 2021-01-12 13:32 | Outpatient (CLI) | payer BC, SELFPAY ==
--- NOTE | 2021-01-12 13:36 | US_ITS ---
PROCEDURE INFORMATION: Exam: US Right Breast, Complete US Left Breast, Complete Exam date and time: 01/12/2021 1:36 PM Age: 55 years old Clinical indication: Jairo nipple and breast pain TECHNIQUE: Imaging protocol: Complete ultrasound of all four quadrants of the Right breast and the retroareolar regions, including ultrasound of the axilla when performed. Complete ultrasound of all four quadrants of the Left breast and the retroareolar regions, including ultrasound of the axilla when performed. COMPARISON: MG MM DIG MAMM BI DX W/CAD 01/12/2021 1:39 PM FINDINGS: Breast: Sonographic images of both breasts including the retroareolar regions, all 4 quadrants and the axilla do not demonstrate any solid or cystic masses. No architectural distortion or acoustical shadowing. No skin thickening or axillary adenopathy. IMPRESSION: No sonographic evidence of malignancy. Annual mammographic screening is recommended unless otherwise clinically indicated. ASSESSMENT: BI-RADS Category 1: Negative
--- NOTE | 2021-01-12 13:36 | MM_ITS ---
PROCEDURE INFORMATION: Exam: MG Bilateral Diagnostic Breast Tomosynthesis Exam date and time: 01/12/2021 1:36 PM Age: 55 years old Clinical indication: Breast reduction years ago; C/O bilateral nipple pain TECHNIQUE: Imaging protocol: Bilateral Diagnostic tomosynthesis and 2D mammography including computer-aided detection (CAD) when performed. Unilateral or bilateral exam. COMPARISON: 1. MG MM DIG SCREENING MAMM BI W/CAD 09/10/2019 4:05 PM 2. MG DIG MAMM-SCREEN ESTEBAN 08/23/2018 3:59 PM FINDINGS: MAMMOGRAPHY: The breast tissue is composed of scattered areas of fibroglandular density. There is no stellate mass, architectural distortion or suspicious microcalcifications in either breast to suggest malignancy. No skin thickening or axillary adenopathy. IMPRESSION: Patient to return for bilateral breast ultrasound for full evaluation of the patient's complaint bilateral nipple pain ASSESSMENT: BI-RADS Category 0: Incomplete- Need Additional Imaging Evaluation and/or Prior Mammograms for Comparison
== END ==
LOC: RAD 13:32
PROVIDERS: PCP Family Medicine; Visit Provider Nurse Practitioner
DX: N64.4 Mastodynia (principal)
CPT/HCPCS: 76641; 77062; 77066; G0279

== ENCOUNTER → 2021-01-25 20:18 | Outpatient (CLI) | payer BC, SELFPAY | PROVIDERS: Visit Provider Nurse Practitioner Family | DX: Z20.822 Contact with and (suspected) exposure to COVID-19 (principal) | CPT/HCPCS: C9803; U0003; U0005 ==

== ENCOUNTER → 2021-02-23 22:57 | Outpatient (CLI) | payer BC, SELFPAY | PROVIDERS: Visit Provider Nurse Practitioner Family | DX: Z20.822 Contact with and (suspected) exposure to COVID-19 (principal) | CPT/HCPCS: C9803; U0003; U0005 ==

== ENCOUNTER 2021-02-28 09:12 | Emergency (ER) | payer BC, SELFPAY ==
[2021-02-28 09:37] VITALS: BP 149/88; PULSE 78; RESP 14; TEMP 36.8; O2SAT 96; BMI 35.4
[2021-02-28 09:52] LABS: Strep Scrn Group A (Rapid) Negative (Negative)
--- NOTE | 2021-02-28 09:59 | HMH.EDUTC ---
[facility] [place] Disposition Clinical Impression: URI (upper respiratory infection) Qualifiers: URI type: unspecified URI Qualified Code(s): J06.9 - Acute upper respiratory infection, unspecified Disposition: Home, Self-Care Condition on Discharge: Good Instructions: Sore Throat, DI for COVID-19 (Suspected or Confirmed ) Additional Instructions: *Monitor Temp, Over the counter Motrin or Tylenol as directed/as needed Tylenol every 4 hours and Motrin every 6 hours (as long as your family doctor has told you that you can take it) for fever or pain. and straight to ER if unable to lower temp less than 101.0 after medication given *Warm salt water gargles may help to soothe the throat *Throat Lozenges *Warm fluids like tea with honey may help to soothe the throat *Sleep elevated *Humidifier/Vaporizer Your throat swab was sent for culture. Those results are typically sent to your primary care. Be sure to follow up in 2-3 days with your family doctor/primary care physician if no improvement so they can review those result and treat if necessary. If you don?t have a primary care doctor, I recommend you get one but in the mean time, you will have to return to a walk in clinic Follow up IMMEDIATELY for new or worsening symptoms or no Noticeable improvement over the next 48-72 hours. 911 for difficulty breathing or swallowing You were tested for today for COVID19 your test result should be back in the next 24-48 hours, you may check your results on the [facility] [employer] Portal if you have trouble logging on you may call [email or web address] support for assistance You was given a handout with instructions for Self Quarantine and Self isolation for while you wait on test results and what to do if they are positive If you are positive the Health Dept will be contacting you also Make sure to take your Vitamins Vit. C Vit D and Zinc if you can take them Referrals: Toña Molina MD [Primary Care Provider] - As needed Forms: Work/School Release Time of Disposition: 10:11 Medical Decision Making - Tal Inquiry Pt receiving controlled substance: No Tal was queried for this patient: No Vital Signs: 02/28/21 09:37 02/28/21 10:19 Temperature 98.3 F 98.3 F Temperature Source Oral Pulse Rate 78 Pulse Rate [Left] 78 Respiratory Rate 14 14 Blood Pressure 149/88 H Blood Pressure [Right Arm] 149/88 H Blood Pressure Mean [Right Arm] 108 02 Sat by Pulse Oximetry 96 - Lab Data Lab results reviewed: Yes: I reviewed the patient's lab results. Lab Results 02/28/21 09:30: Group A Strep Rapid Negative 02/28/21 10:08: Chlamy pneumoniae PCR Not detected, Adenovirus (PCR) Not detected, B. pertussis DNA (PCR) Not detected, Coronavirus OC43 (PCR) Not detected, Coronavirus HKU1 (PCR) Not detected, Coronavirus 229E (PCR) Not detected, SARS-CoV-2 (PCR) Not detected, Coronavirus NL63 (PCR) Not detected, Human Metapneumovir PCR Not detected, Influenza A (H1) PCR Not detected, Influ A (H1N1/09) PCR Not detected, Influenza A (H3) PCR Not detected, Influenza Type A (PCR) Not detected, Influenza Type B (PCR) Not detected, M. pneumoniae (PCR) Not detected, Parainfluenza 1 (PCR) Not detected, Parainfluenza 2 (PCR) Not detected, Parainfluenza 3 (PCR) Not detected, Parainfluenza 4 (PCR) Not detected, RSV (PCR) Not detected, Entero/Rhino (PCR) Not detected Orders (Tests/Meds): ED MEDICATIONS Discontinued Medications Generic Name Dose Route Start Last Admin Trade Name Freq PRN Reason Stop Dose Admin Ceftriaxone Sodium 1 gm 02/28/21 10:07 02/28/21 10:18 Ceftriaxone 1gm Vial IM 02/28/21 10:08 1 gm ONCE ONE Administration Lidocaine HCl 0 ml 02/28/21 10:07 02/28/21 10:17 Lidocaine 1% 5ml Pf Vial IM 02/28/21 10:08 2 ml ONCE ONE Administration Methylprednisolone Sodium Succinate 125 mg 02/28/21 10:07 02/28/21 10:17 Methylprednisolone Sod Succ 125mg Vial IM 02/28/21 10:08 125 mg ONCE ONE Administration ORDERS Category Date Time Status
[2021-02-28 10:19] VITALS: BP 149/88; PULSE 78; RESP 14; TEMP 36.8
[2021-02-28 10:44] LABS: Adenovirus,PCR Not Detected (NotDetected); Bordetella Pertussis Not Detected (NotDetected); Chlamydophila Pneumoniae, PCR Not Detected (NotDetected); Coronavirus 19, PCR Not Detected (NotDetected); Coronavirus 229E Not Detected (NotDetected); Coronavirus NL63 Not Detected (NotDetected); Coronavirus OC43 Not Detected (NotDetected); Coronovirus HKU1,PCR Not Detected (NotDetected); Human Metapneumovirus Not Detected (NotDetected); Influenza A, PCR Not Detected (NotDetected); Influenza AH1, 2009 Not Detected (NotDetected); Influenza AH1, PCR Not Detected (NotDetected); Influenza AH3,PCR Not Detected (NotDetected); Influenza B, PCR Not Detected (NotDetected); Mycoplasma Pneumoniae, PCR Not Detected (NotDetected); Parainfluenza 1, PCR Not Detected (NotDetected); Parainfluenza 2, PCR Not Detected (NotDetected); Parainfluenza 3, PCR Not Detected (NotDetected); Parainfluenza 4, PCR Not Detected (NotDetected); Respiratory Syncytial Virus Not Detected (NotDetected); Rhinovirus/Enterovirus Not Detected (NotDetected)
== END 2021-02-28 10:23 | disposition home or self-care (01) ==
PROVIDERS: Emergency Provider Nurse Practitioner; PCP Family Medicine
DX: J06.9 Acute upper respiratory infection, unspecified (principal); Z20.822 Contact with and (suspected) exposure to COVID-19; K21.9 Gastro-esophageal reflux disease without esophagitis; Z88.2 Allergy status to sulfonamides; Z88.5 Allergy status to narcotic agent
CPT/HCPCS: 87430; 87581; 87632; 87798; 96372; 99202; C9803; G0463; J0696; U0003; U0005

== ENCOUNTER 2021-03-14 15:38 | Emergency (ER) | payer BC, SELFPAY ==
[2021-03-14 17:00] VITALS: BP 136/78; PULSE 70; RESP 19; TEMP 37.1; O2SAT 100; BMI 32.4
--- NOTE | 2021-03-14 17:30 | HMH.EDUTC ---
[facility] [place] Disposition Clinical Impression: Muscle spasm URI (upper respiratory infection) Qualifiers: URI type: unspecified URI Qualified Code(s): J06.9 - Acute upper respiratory infection, unspecified Disposition: Home, Self-Care Condition on Discharge: Good Instructions: Sore Throat, DI for Cough -- Adult, DI for Muscle Spasm Additional Instructions: *Monitor Temp, Over the counter Motrin or Tylenol as directed/as needed Tylenol every 4 hours and Motrin every 6 hours (as long as your family doctor has told you that you can take it) for fever or pain. and straight to ER if unable to lower temp less than 101.0 after medication given *Warm salt water gargles may help to soothe the throat *Throat Lozenges *Warm fluids like tea with honey may help to soothe the throat *Sleep elevated *Humidifier/Vaporizer *Flonase 2 sprays in each nostril daily but be aware that it may take 2-3 days before you notice improvement *Bromfed may cause drowsiness. Know how it effects you (your child) before driving, caring for small child, or sending your child to school. Not other antihistamines/allergy medications while taking bromfed Follow up IMMEDIATELY for new or worsening symptoms or no Noticeable improvement over the next 48-72 hours. 911 for difficulty breathing or swallowing Prescriptions: Brompheniramine/Pseudoephed/Dm [Bromfed Dm Cough Syrup] 5 - 10 ml PO Q46H PRN #200 ml PRN Reason: Cough Transmission Status: Pending to [facility] methylPREDNISolone [Medrol 4mg tab] 4 mg PO DIRECTED #21 tab Transmission Status: Pending to [facility] methocarbamoL [Methocarbamol 500mg Tablet] 500 mg PO BID PRN #10 tab PRN Reason: Muscle Spasm Transmission Status: Pending to [facility] Cefdinir [Omnicef 300mg Capsule] 300 mg PO BID 10 Days #20 cap Transmission Status: Pending to [facility] Referrals: Toña Molina MD [Primary Care Provider] - Time of Disposition: 18:49 Medical Decision Making - Tal Inquiry Pt receiving controlled substance: No Tal was queried for this patient: No Vital Signs: 03/14/21 17:00 03/14/21 17:51 Temperature 98.7 F 98.7 F Temperature Source Oral Pulse Rate 70 Pulse Rate [Right Brachial] 70 Respiratory Rate 19 19 Blood Pressure 136/78 Blood Pressure [Right Arm] 136/78 Blood Pressure Mean [Right Arm] 97 Blood Pressure Source [Right Arm] Automatic Cuff Blood Pressure Position [Right Arm] Sitting 02 Sat by Pulse Oximetry 100 Oxygen Delivery Method Room Air Orders (Tests/Meds): ED MEDICATIONS Discontinued Medications Generic Name Dose Route Start Last Admin Trade Name Alexis PRN Reason Stop Dose Admin Ceftriaxone Sodium 1 gm 03/14/21 18:31 03/14/21 18:25 Ceftriaxone 1gm Vial IM 03/14/21 18:32 1 gm ONCE ONE Administration Lidocaine HCl 0 ml 03/14/21 18:31 03/14/21 18:25 Lidocaine 1% 5ml Pf Vial IM 03/14/21 18:32 2 ml ONCE ONE Administration Methylprednisolone Sodium Succinate 125 mg 03/14/21 18:31 03/14/21 18:25 Methylprednisolone Sod Succ 125mg Vial IM 03/14/21 18:32 125 mg ONCE ONE Administration - Radiology Data #1 Image(s): Chest Image Reviewed: Yes I have reviewed radiologist's interpretation IMPRESSION: Resolved right lower lobe infiltrate since comparison. [facility] [place] HPI - General Stated complaint: cough sore throat headache congestion back pain Time Seen by Provider: 03/14/21 17:31 Mode of Arrival: Ambulatory Source of Information: Patient Limitations: No Limitations Description of Symptoms (Recalled from Triage Doc. by RN): PATIENT C/O SORE THROAT, HEADACHE, COUGH, UPPER BACK PAIN AND CONGESTION HEENT Symptoms (Recalled from RN notes): Yes Resp Symptoms (Recalled from RN notes): Yes Skin Symptoms (Recalled from RN notes): No MS Symptoms (Recalled from RN notes): No Functional Status (Recalled from RN notes): WNL - History of Present Illness Provider Complaint: Patient s
--- NOTE | 2021-03-14 17:39 | XR_ITS ---
PROCEDURE INFORMATION: Exam: XR Chest Exam date and time: 03/14/2021 5:39 PM Age: 55 years old Clinical indication: Cough and shortness of breath; Additional info: Chest congestion TECHNIQUE: Imaging protocol: XR of the chest. Views: 2 views. COMPARISON: CR XR CHEST PORTABLE 05/08/2019 2:11 PM FINDINGS: Lungs: Resolved right lower lobe infiltrate since comparison. Pleural spaces: Unremarkable. No pleural effusion. No pneumothorax. Heart/Mediastinum: Unremarkable. No cardiomegaly. Bones/joints: Unremarkable. IMPRESSION: Resolved right lower lobe infiltrate since comparison.
[2021-03-14 17:51] VITALS: BP 136/78; PULSE 70; RESP 19; TEMP 37.1; O2SAT 100
== END 2021-03-14 17:58 | disposition home or self-care (01) ==
PROVIDERS: Emergency Provider Nurse Practitioner; PCP Family Medicine
DX: J06.9 Acute upper respiratory infection, unspecified (principal)
CPT/HCPCS: 71046; 96372; 99202; G0463; J0696

== ENCOUNTER → 2021-05-29 11:30 | Outpatient (CLI) | payer BC, SELFPAY | PROVIDERS: Visit Provider Surgery | DX: Z01.812 Encounter for preprocedural laboratory examination (principal); Z11.52 Encounter for screening for COVID-19; Z12.11 Encounter for screening for malignant neoplasm of colon; Z86.010 Personal history of colon polyps | CPT/HCPCS: C9803; U0003; U0005 ==

== ENCOUNTER 2021-06-01 10:16 | Day surgery (SDC) | payer BC, SELFPAY ==
[2021-05-26 14:47] VITALS: BMI 36.3
[2021-06-01 10:37] VITALS: BP 147/89; PULSE 72; RESP 22; TEMP 36.5; O2SAT 99
--- NOTE | 2021-06-01 10:47 | HMH.SCOPE ---
- Procedure: Date: 06/01/21 Patient Date of :: 1965 Procedure Performed:: Colonoscopy Indications:: History of colon polyps. Colonoscopy in June 2019 revealed adenomatous polyps of the right colon and transverse colon. Bowel preparation was moderate to poor and she also had severe lack of relaxation. Scattered diverticulosis noted. Performing Provider:: Remberto Brooks MD Referring Provider:: . Sedation:: Monitored anesthesia care Procedure:: After informed consent was obtained the patient was taken to the endoscopy suite. Sedation ensued after the patient was transferred to the left lateral decubitus position. Pulse, blood pressure, and oxygen saturation were monitored throughout the procedure. Digital rectal exam revealed no significant abnormality. The colonoscope was placed in position. The entire colon was evaluated. The colonoscope was carefully removed and the patient was transferred to recovery in stable condition. Please see findings and specimens below for detail. Findings:: Bowel preparation fair to moderate Hemorrhoidal tags Fairly severe lack of relaxation Specimens:: None Recommendations:: Repeat colonoscopy in 3 years secondary to history of significant polyps, [id number] bowel preparation, and fairly severe lack of relaxation. Complications:: No immediate Estimated blood obtained (mL): 0
--- NOTE | 2021-06-01 10:51 | HMH.ANESCL ---
[facility] Anesthesia Checklist - Patient Identification Patient Identification: Arm Band - Structural Data Admitted From: Home Planned Operative Procedure/s: Colonoscopy Consent for Planned Operative Procedure(s) Verified: Yes Verified Documents: Surgical Consent, History and Physical - NPO Status Verified Time NPO: 00:00 - Additional verifications Anesthesia Reactions: No - Airway Assessment C-Spine Mobility Assessed: Yes (mp2) TMJ Mobility Assessed: Yes Dentition: Good Dentition - Neurological Assessment Level of Consciousness: Awake, Alert - Anesthesia Plan Anesthesia Risk discussed: Yes Anesthesia Plan: Verified ASA Class: II Anesthesia Type: MAC [facility] History I have reviewed the patient's past medical history: Yes Medical History: Reports:: Gastroesophageal Reflux Disease(GERD) Denies:: Cancer, Diabetes Mellitus Type 1, Diabetes Mellitus Type 2, Hypertension, Internal Pacemaker, MRSA, Seizures *Have you ever received a pneumonia vaccine?: No *Have you received a flu vaccine this season?: No Other Medical History: Reports: Sinus Problems Anesthesia experience/problems:: nac Other Surgeries: Yes: Colonoscopy, EGD, Hernia Repair, Hysterectomy-Total, Hysterectomy-Partial, Tubal Ligation, Other. No: Pacemaker Amputation: No - *Social History Last grade of school completed: High school graduate Smoking Status: Never smoker Alcohol Intake: never Substance Use Type: denies use *Occupational Status:: other Housing: house Household Members: spouse *Travel in the last 8 weeks: None Family Hx:: Cancer, Diabetes
[2021-06-01 11:01] VITALS: O2SAT 99
[2021-06-01 11:30] VITALS: BP 126/67; PULSE 86; RESP 18; TEMP 36.2; O2SAT 93
[2021-06-01 11:40] VITALS: BP 136/86; PULSE 61; RESP 18; O2SAT 97
[2021-06-01 11:50] VITALS: BP 142/87; PULSE 61; RESP 18; O2SAT 97
[2021-06-01 12:00] VITALS: BP 180/96; PULSE 63; RESP 18; O2SAT 100
== END 2021-06-01 12:00 | disposition home or self-care (01) ==
LOC: OUTP 10:17
PROVIDERS: PCP Family Medicine; Visit Provider Surgery
PROC: 0DJD8ZZ Inspection of Lower Intestinal Tract, Via Natural or Artificial Opening Endoscopic (ICD-10-PCS; CPT 45378; principal; 2021-06-01 11:30)
DX: Z12.11 Encounter for screening for malignant neoplasm of colon (principal); K63.89 Other specified diseases of intestine; K64.9 Unspecified hemorrhoids; Z86.010 Personal history of colon polyps; E66.9 Obesity, unspecified; Z68.36 Body mass index [BMI] 36.0-36.9, adult; Z88.2 Allergy status to sulfonamides; Z88.5 Allergy status to narcotic agent; Z79.899 Other long term (current) drug therapy
CPT/HCPCS: 45378

== ENCOUNTER 2021-10-28 17:21 | Emergency (ER) | payer BC, SELFPAY ==
[2021-10-28 18:20] VITALS: BP 130/90; PULSE 70; RESP 19; TEMP 36.9; O2SAT 98; BMI 36.8
[2021-10-28 18:33] LABS: Apearance,Urine Clear (Clear); Bilirubin,Urine Negative (Negative); Blood, Urine Negative (Negative); Color,Urine Yellow (Yellow); Glucose,Urine (UA) Negative (Negative); Ketones,Urine Negative (Negative); Protein,Urine Negative (Negative); Specific Gravity, Urine 1.025 (1.005-1.030); UTC Leukocyte Esterase,Urine Negative (Negative); UTC Nitrate,Urine Negative (Negative); Urobilinogen,Urine 0.2 EU/dl (0.2)
--- NOTE | 2021-10-28 18:44 | EXP.UTC ---
Discharge Plan Disposition Patient Disposition: Home, Self-Care Condition: Good Prescriptions Prescriptions: New cephalexin 500 mg capsule 500 mg PO BID 5 Days Qty: 10 0RF No Action omeprazole 40 mg capsule,delayed release(DR/EC) 40 mg PO DAILY peg 3350-electrolytes 4,000 ML recon soln 240 ml PO Q10M Rx Instructions: until fecal effluent is clear Referrals Follow up/Referrals: Toña Molina MD [Primary Care Provider] - See instructions Activity Restrictions/Add. Instructions Additional Instructions/Restrictions: *Increase fluids. Water not Soda or Tea *Start antibiotic immediately and be sure to take as ordered for the FULL length of time although you should start to see improvement over the next 48 hours *Be SURE to follow up anytime for new or worsening symptoms with your family doctor. AND in 48 hours for urine culture results with your family doctor, if you do not have a doctor then you may call back to the [facility] for urine culture results and further treatment. We do recommend that you choose and establish care with a Primary Care Physician. ?AND follow up with them ?in 10-14 days to repeat UA to ensure infection is resolved and blood no longer present *Be sure to let your PCP know that we sent urine cultures from the [facility] so they can follow up to ensure that you area the on the correct antibiotic Call your doctor office and make appointment for 48 hours (2 days from today) ?to follow up and get the results of your urine culture and further treatment Clinical Impressions Clinical Impression: UTI (urinary tract infection) Instructions Patient Instructions: DI for Urinary Tract Infection (UTI) Discharge ED Provider: Stacey Muñoz [facility] [place] HPI General Stated complaint: adominal pain Time Seen by Provider: 10/28/21 18:54 History of Present Illness Provider Complaint: Patient states that she feels like she has a UTI States that she has been having pressure and feeling of frequency and urgency States that she feels like it does when she has a UTI States that today she was still having symptoms so she came in to get checked Related Data Home Medications Medication Instructions Recorded Confirmed omeprazole 40 mg capsule,delayed 40 mg PO DAILY GERD 03/27/19 05/26/21 release peg 3350-electrolytes 236 240 ml PO Q10M bowel prep 06/01/21 gram-22.74 gram-6.74 gram-5.86 gram solution Previous Rx's Medication Instructions Recorded cephalexin 500 mg capsule 500 mg PO BID 5 days #10 caps 10/28/21 Allergies Allergy/AdvReac Type Severity Reaction Status Date / Time morphine [MORPHINE] Allergy Unknown ITCHING Verified 06/01/21 10:35 Sulfa (Sulfonamide Allergy Unknown NA-NAUSEA/V Verified 06/01/21 10:35 Antibiotics) OMITING [SULFA (SULFONAMIDE ANTIBIOTICS)] [facility] Medical History (Updated 10/28/21 @ 18:54 by Stacey Muñoz APRN) Kidney stone Surgical History (Updated 10/28/21 @ 18:49 by Tiffany Ellington RN) History of hysterectomy History of tubal ligation Social History Smoking Status: Never smoker alcohol intake: never substance use type: denies use current occupational status: other Travel in the last 8 weeks: None household members: spouse housing: house current occupational exposures/hazards: No caffeine: Yes ROS Obtained: Yes All systems reviewed & no additional complaints except as documented and Yes Systems reviewed as appropriate & no additional complaints except as documented Constitutional Constitutional: Reports system reviewed and no additional complaints, except as documented and Reports as per HPI ENT Ears, Nose, Mouth, and Throat: Reports system reviewed and no additional complaints, except as documented and Reports as per HPI Cardiovascular Cardiovascular: Reports system reviewed and no additional complaints, except as documented and Reports as per HPI Respiratory Respiratory: Reports system reviewed
[2021-10-28 18:58] VITALS: BP 130/90; PULSE 70; RESP 19; TEMP 36.9; O2SAT 98
== END 2021-10-28 18:59 | disposition home or self-care (01) ==
PROVIDERS: Emergency Provider Nurse Practitioner; PCP Family Medicine
DX: N39.0 Urinary tract infection, site not specified (principal)
CPT/HCPCS: 81003; 87086; 99212; G0463

== ENCOUNTER → 2021-11-29 09:04 | Outpatient (CLI) | payer BC, SELFPAY ==
--- NOTE | 2021-11-29 09:12 | XR_ITS ---
FINAL REPORT CLINICAL HISTORY: NECK PAIN, NO INJURY COMPARISON: 12/30/2019 FINDINGS: CERVICAL SPINE Five views were obtained. There is no acute fracture. There is mild anterolisthesis of L5 on S1, stable. There are mild degenerative changes. The disc spaces are preserved. There is no soft tissue abnormality. IMPRESSION: Mild degenerative change with no acute bony abnormality. Mild anterolisthesis of L5 on S1, stable. Reviewed, Interpreted and Dictated by Viet Schreiber III, MD Transcribed by Deanna Sanders Authenticated and [facility]
== END ==
LOC: RAD 09:06
PROVIDERS: PCP Nurse Practitioner Family; Visit Provider Nurse Practitioner Family
DX: M54.2 Cervicalgia (principal)
CPT/HCPCS: 72050

== ENCOUNTER 2022-01-04 13:00 | Outpatient (RCR) | payer BC, SELFPAY ==
--- NOTE | 2021-12-14 13:28 | HMH.PTOPEV ---
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 Pt also reports chronic left shoulder issues which limit strength and ROM, unrelated to neck issues. Chief Complaint Pain,Stiff,Weakness Symptom Type Ache,Throb,Dull,Stabbing Symptoms Relieved By Rest/Positioning,Heat, Prescription Meds Symptoms Aggravated By Sitting,Physical Activity, Lifting Prior Functional Limitations Reaching,Lifting,Housework, Driving,Sleeping,Sitting Current Functional Limitations Reaching,Lifting,Housework, Driving,Sleeping,Sitting Symptom Description Constant but Variable Level of pain today (0-10) 10 Pain scale - at its best (0-10) 8 Pain scale - at its worst (0-10) 10 Cervical Eval Palpation Cervical Muscles R Cervical Paraspinal,L Cervical Paraspinal,R Suboccipital,L Suboccipital,R CT Junction,L CT Junction,R Upper Trapezius,L Upper Trapezius,R Thoracic Paraspinals,L Thoracic Paraspinals Cervical/Thoracic Palpation Findings Tenderness,Trigger Point, Muscle Guarding Posture Head/C-Spine Posture Sitting Position Flexed Head/C-Spine Posture Standing Position Flexed Flexibility Deficits Upper Trapezius Muscle Length (R) Moderate Tightness,(L) Severe Tightness Levaetor Scapulae Muscle Length (R) Moderate Tightness,(L) Moderate Tightness Scalene Group Muscle Length (R) Moderate Tightness,(L) Severe Tightness Pectoralis Major Muscle Length (R) Mild Tightness,(L) Mild Tightness Pectoralis Minor Muscle Length (R) Mild Tightness,(L) Mild Tightness Passive Joint Mobility
== END 2022-01-04 13:05 | disposition home or self-care (01) ==
LOC: PT 13:00
PROVIDERS: PCP Nurse Practitioner Family; Visit Provider Nurse Practitioner Family
DX: M54.2 Cervicalgia (principal)
CPT/HCPCS: 97163

== ENCOUNTER → 2022-01-24 12:52 | Outpatient (CLI) | payer BC, SELFPAY ==
--- NOTE | 2022-01-24 12:58 | MM_ITS ---
PROCEDURE INFORMATION: Exam: MG Bilateral Screening 3D Mammography Exam date and time: 01/24/2022 12:52 PM Age: 56 years old Clinical indication: Screening examination. Her mother had breast cancer at age 50. TECHNIQUE: Imaging protocol: Bilateral Screening tomosynthesis and 2D mammography including computer-aided detection (CAD) when performed. COMPARISON: 1. MG MM DIG MAMM BI DX W/CAD 01/12/2021 1:39 PM 2. MG MM DIG SCREENING MAMM BI W/CAD 09/10/2019 4:05 PM 3. MG DIG MAMM-SCREEN ESTEBAN 08/23/2018 3:59 PM 4. MG DMSB DIG MAMM-SCREEN ESTEBAN W/CAD 06/23/2016 11:01 AM FINDINGS: MAMMOGRAPHY: Breast composition: There are scattered areas of fibroglandular density. Mass: None. Architectural distortion: Stable diffuse bilateral architectural distortion with history of reduction mammoplasty. Calcifications: No suspicious calcifications. Asymmetric density: No developing asymmetry. Skin thickening: None. Axillary adenopathy: None. IMPRESSION: No mammographic evidence of malignancy. Annual screening is recommended unless otherwise clinically indicated. ASSESSMENT: BI-RADS Category 2: Benign
== END ==
PROVIDERS: PCP Nurse Practitioner Family; Visit Provider Nurse Practitioner Family
DX: Z12.31 Encounter for screening mammogram for malignant neoplasm of breast (principal)
CPT/HCPCS: 77063; 77067

== ENCOUNTER → 2022-02-14 08:40 | Outpatient (CLI) | payer BC, SELFPAY ==
--- NOTE | 2022-02-14 08:48 | US_ITS ---
FINAL REPORT CLINICAL HISTORY: RIGHT UPPER QUAD PAIN FINDINGS: Sonographic images of the right upper quadrant were obtained. The pancreas is partially obscured.The liver has an unremarkable appearance.The gallbladder appears normal without evidence of gallstones.There is no evidence of biliary ductal dilatation.The common duct measures 4mm. Limited images of the right kidney are unremarkable. IMPRESSION: Unremarkable right upper quadrant ultrasound. Reviewed, Interpreted and Dictated by Viet Schreiber III, MD Transcribed by Keyanna Henson Authenticated and [facility]
== END ==
LOC: RAD 08:40
PROVIDERS: PCP Nurse Practitioner Family; Visit Provider Nurse Practitioner Family
DX: R10.11 Right upper quadrant pain (principal)
CPT/HCPCS: 76705

== ENCOUNTER 2022-04-12 16:08 | Emergency (ER) | payer BC, SELFPAY ==
[2022-04-12 16:30] VITALS: BP 154/94; PULSE 77; RESP 20; TEMP 37.1; O2SAT 97; BMI 37.2
[2022-04-12 17:01] LABS: UTC Strep Screen (Rapid) Negative (Negative)
--- NOTE | 2022-04-12 17:19 | EXP.UTC ---
Discharge Plan Disposition Patient Disposition: Home, Self-Care Condition: Good Prescriptions Prescriptions: New azithromycin [Zithromax Z-Fidel] 250 mg tablet See Rx Instructions .ROUTE .COMPLEX 5 Days Qty: 6 0RF Rx Instructions: For 250 mg dose pack: take 500 mg today (day 1), then 250 mg for 4 days (days 2-5) benzonatate 100 mg capsule 100 mg PO TID PRN (Reason: cough) Qty: 30 0RF methylprednisolone [Medrol (Fidel)] 4 mg tablets,dose pack See Rx Instructions .Route .COMPLEX 6 Days Qty: 21 0RF Rx Instructions: taper pack; albuterol sulfate [Proventil HFA] 90 mcg/actuation HFA aerosol inhaler 1 - 2 inh inhalation Q6H PRN (Reason: shortness of breath or wheezing) Qty: 8.5 0RF No Action omeprazole 40 mg capsule,delayed release(DR/EC) 40 mg PO DAILY furosemide 40 mg tablet 40 mg PO DAILY Referrals Follow up/Referrals: Peewee Camargo MD [Primary Care Provider] - See instructions Activity Restrictions/Add. Instructions Additional Instructions/Restrictions: Start antibiotic today. Be sure to complete entire prescription even if feeling better Monitor temp. Tylenol every 4 hours as needed and / or ibuprofen every 6 hours as needed ( As long as your primary care physician has told you that it ok to take both. For fever/aches/pains ER if no less than 101 despite Tylenol or Motrin Humidifier/vaporizer or hot steamy shower Inhaler every 4-6 hours as needed like we discussed. If unsure how to use it, ask pharmacist to demonstrate how. Should help open airways and improve cough, wheezing, and shortness of breath *Tessalon Perles will not cause drowsiness but use at bedtime to help stop cough so that you may get some rest. *Start steroid today. Helps with inflammation therefore, cough and wheezing. Follow directions on the package. Reviewed side effects. Patient reports taking them before. Follow up IMMEDIATELY for new or worsening of symptoms OR no noticeable improvement over the next 48-72 hours. 911 immediately for any life threatening symptoms such as chest pain or difficulty breathing Clinical Impressions Clinical Impression: Sinusitis Stand Alone Forms Stand Alone Forms: Work/School Release Instructions Patient Instructions: DI for Sinusitis, Sinusitis Discharge ED Provider: Stacey Muñoz [facility] HPI General Stated complaint: Sore throat,XAVIER Cough,Congestion Mode of Arrival: Ambulatory Source of Information: Patient Limitations: No Limitations Time Seen by Provider: 04/12/22 17:19 Description of Symptoms (Recalled from Triage Doc. by RN): sore throat, XAVIER, sinus pressure, and cough HEENT Symptoms (Recalled from RN notes): Yes Resp Symptoms (Recalled from RN notes): No Skin Symptoms (Recalled from RN notes): No MS Symptoms (Recalled from RN notes): No Functional Status (Recalled from RN notes): n/a History of Present Illness Provider Complaint: Patient state that she has been having sore throat, sinus pain and pressure for about a week, cough and feeling pressure behind her eyes States that today she wasnt feeling any better so she came in to get checked Related Data Home Medications Medication Instructions Recorded Confirmed omeprazole 40 mg capsule,delayed 40 mg PO DAILY GERD 03/27/19 04/12/22 release furosemide 40 mg tablet 40 mg PO DAILY . 04/12/22 04/12/22 Previous Rx's Medication Instructions Recorded albuterol sulfate 90 mcg/actuation 1 - 2 inh inhalation Q6H PRN 04/12/22 aerosol inhaler (Proventil HFA) shortness of breath or wheezing #8.5 grams azithromycin 250 mg tablet See Rx Instructions PO .COMPLEX 5 04/12/22 (Zithromax Z-Fidel) days #6 tabs benzonatate 100 mg capsule 100 mg PO TID PRN cough #30 caps 04/12/22 methylprednisolone 4 mg tablets in See Rx Instructions .Route 04/12/22 a dose pack (Medrol (Fidel)) .COMPLEX 6 days #21 tabs Allergies Allergy/AdvReac Type Severity Reaction Status Date
[2022-04-12 17:47] VITALS: BP 154/94; PULSE 77; RESP 20; TEMP 37.1; O2SAT 97
== END 2022-04-12 17:45 | disposition home or self-care (01) ==
PROVIDERS: Emergency Provider Nurse Practitioner; PCP Internal Medicine Adolescent Medicine
DX: J01.90 Acute sinusitis, unspecified (principal); R05.1 Acute cough; Z20.822 Contact with and (suspected) exposure to COVID-19
CPT/HCPCS: 87880; 99212; 99214; C9803; G0463; U0003; U0005

== ENCOUNTER 2022-05-22 19:28 | Emergency (ER) | payer BC, SELFPAY ==
[2022-05-22 19:35] VITALS: PULSE 82; RESP 22; TEMP 36.5; O2SAT 97; BMI 39.4
--- NOTE | 2022-05-22 19:45 | EXP.UTC ---
Discharge Plan Disposition Patient Disposition: Home, Self-Care Condition: Good Prescriptions Prescriptions: New prednisone [prednisone] 20 mg tablet 20 mg PO BID 5 Days Qty: 10 0RF fluticasone propionate [Flonase Allergy Relief] 50 mcg/actuation spray,suspension 2 spray intranasal DAILY Qty: 16 0RF Rx Instructions: administer into each nostril No Action omeprazole 40 mg capsule,delayed release(DR/EC) 40 mg PO DAILY Referrals Follow up/Referrals: Anastacio Manriquez MD [Physician] - See instructions (call office for appointment) Pollo Christie MD [Physician] - See instructions Khoa Rodriguez III, MD [Staff Physician] - See instructions Peewee Camargo MD [Primary Care Provider] - See instructions Activity Restrictions/Add. Instructions Additional Instructions/Restrictions: *Monitor Temp, Over the counter Motrin or Tylenol as directed/as needed Tylenol every 4 hours and Motrin every 6 hours (as long as your family doctor has told you that you can take it) for fever or pain. and straight to ER if unable to lower temp less than 101.0 after medication given *Warm salt water gargles may help to soothe the throat *Throat Lozenges? *Warm fluids like tea with honey may help to soothe the throat? *Sleep elevated *Humidifier/Vaporizer Follow up IMMEDIATELY for new or worsening symptoms or no Noticeable improvement over the next 48-72 hours. 911 for difficulty breathing or swallowing Clinical Impressions Clinical Impression: Sinusitis Qualifiers: Sinusitis location: unspecified location Chronicity: unspecified Qualified Code(s): J32.9 - Chronic sinusitis, unspecified Instructions Patient Instructions: Sinusitis, DI for Sinusitis Discharge ED Provider: Stacey Muñoz [facility] General Stated complaint: Cough, Congestion Mode of Arrival: Ambulatory Source of Information: Patient Limitations: No Limitations Time Seen by Provider: 05/22/22 19:45 Description of Symptoms (Recalled from Triage Doc. by RN): PATIENT C/O SINUS PRESSURE, HEADACHE, RUNNY NOSE, AND CHEST CONGESTION HEENT Symptoms (Recalled from RN notes): Yes Resp Symptoms (Recalled from RN notes): No Skin Symptoms (Recalled from RN notes): No MS Symptoms (Recalled from RN notes): No Functional Status (Recalled from RN notes): WNL History of Present Illness Provider Complaint: Patient state that she has been sick for over a month with sinus infection States that she was seen in April in the [facility] with sinus infection States that she finished her medication and it didnt clear it up States that she followed up with her PCP on 05/10 and was prescribed Augmentin States that she finished it a few days ago and still having sinus pain and pressure with cough States that she is not coughing anything up States that her cough is better But still having pressure behind her eyes and in her sinuses Related Data Home Medications Medication Instructions Recorded Confirmed omeprazole 40 mg capsule,delayed 40 mg PO DAILY GERD 03/27/19 05/22/22 release Previous Rx's Medication Instructions Recorded fluticasone propionate 50 2 spray intranasal DAILY #16 grams 05/22/22 mcg/actuation nasal spray,suspension (Flonase Allergy Relief) prednisone 20 mg tablet 20 mg PO BID 5 days #10 tabs 05/22/22 Allergies Allergy/AdvReac Type Severity Reaction Status Date / Time morphine [MORPHINE] Allergy Unknown ITCHING Verified 04/12/22 16:47 Sulfa (Sulfonamide Allergy Unknown NA-NAUSEA/V Verified 04/12/22 16:47 Antibiotics) OMITING [SULFA (SULFONAMIDE ANTIBIOTICS)] Worker's Comp Is this a Worker's Comp case?: No [facility] Disclaimer: The information contained in this section may have been updated after the patient was seen, as this information can be updated by other users. Medical History (Updated 05/22/22 @ 20:04 by Stacey Muñoz APRN) Kidney stone Surgical History (Reviewed 04/12/22 @ 16:47 by
[2022-05-22 20:09] VITALS: BP 0/0; PULSE 82; RESP 22; TEMP 36.5; O2SAT 97
== END 2022-05-22 20:15 | disposition home or self-care (01) ==
PROVIDERS: Emergency Provider Nurse Practitioner; PCP Internal Medicine Adolescent Medicine
DX: J01.91 Acute recurrent sinusitis, unspecified (principal)
CPT/HCPCS: 96372; 99212; 99214; G0463; J0696

== ENCOUNTER → 2022-06-07 13:48 | Outpatient (POV) | payer BC, SELFPAY | PROVIDERS: Visit Provider Dermatology | DX: Z00.00 Encounter for general adult medical examination without abnormal findings (principal) ==

== ENCOUNTER → 2022-09-22 17:34 | Outpatient (CLI) | payer BC, SELFPAY ==
--- NOTE | 2022-09-22 17:42 | XR_ITS ---
PROCEDURE INFORMATION: Exam: XR Thoracic Spine Exam date and time: 09/22/2022 5:34 PM Age: 57 years old Clinical indication: Pain in thoracic spine; Other: Chronic thoracic spine pain; Additional info: Chronic pain, no injury TECHNIQUE: Imaging protocol: Radiologic exam of the thoracic spine. Views: 3 views. COMPARISON: CR XR CERVICAL SPINE 5V 11/29/2021 9:21 AM FINDINGS: Bones/joints: No acute fracture. Normal alignment. Minimal degenerative changes. Soft tissues: Unremarkable. Other findings: 7 mm calcific density projecting over the left renal shadow. IMPRESSION: 1. No acute osseous findings of the thoracic spine. Minimal degenerative changes. 2. 7 mm calcific density projecting over the left renal shadow possibly representing a nephrolith.
== END ==
LOC: RAD 17:35
PROVIDERS: PCP Internal Medicine Adolescent Medicine; Visit Provider Nurse Practitioner Family
DX: M54.6 Pain in thoracic spine (principal); G89.29 Other chronic pain
CPT/HCPCS: 72072

== ENCOUNTER 2023-02-14 08:23 | Day surgery (SDC) | payer BC, SELFPAY ==
[2022-11-25 12:59] VITALS: BMI 38.9
[2023-02-14 08:36] VITALS: BP 144/81; PULSE 66; RESP 16; TEMP 36.4; O2SAT 97
[2023-02-14] MEDS: LACTATED RINGERS 1000ML 1,000 ML 100 ML IV (08:43)
--- NOTE | 2023-02-14 09:02 | P.PNANES_ITS ---
[facility] Disclaimer: The information contained in this section may have been updated after the patient was seen, as this information can be updated by other users. Medical History Cystocele History of skin cancer Kidney stone Left elbow fracture Rectocele LATONIA (stress urinary incontinence, female) Urinary frequency Urinary urgency Surgical History History of bilateral breast reduction surgery History of foot surgery History of hernia repair History of hysterectomy History of tubal ligation Family History Other Anemia Asthma Cancer Diabetes Heart attack Hypertension Kidney disease Thyroid disorder Social History Smoking Status: Never smoker alcohol intake: never substance use type: denies use current occupational status: unemployed Travel in the last 8 weeks: None household members: spouse housing: house current occupational exposures/hazards: No caffeine: Yes [facility] Anesthesia Checklist Patient Identification Patient Identification: Arm Band and Verbal (Name & ) Structural Data Admitted From: Home Planned Operative Procedure/s: Colonoscopy Consent for Planned Operative Procedure(s) Verified: Yes NPO Status Verified Time NPO: 00:00 Additional verifications Anesthesia Reactions: No Airway Assessment Mallampati Score:: Class III C-Spine Mobility Assessed: Yes TMJ Mobility Assessed: Yes Dentition: Good Dentition Neurological Assessment Level of Consciousness: Awake Hx Seizures: No Numbness or tingling in extremities: No Anesthesia Plan Anesthesia Risk discussed: Yes ASA Class: II Anesthesia Type: MAC
--- NOTE | 2023-02-14 09:05 | P.PCN_ITS ---
Procedure: Date: 02/14/23 Patient Date of :: 1965 Procedure Performed:: Colonoscopy Indications:: History of colon polyps Note: Most recent colonoscopy in May 2021 was somewhat complicated by poor re laxation and moderate bowel preparation. Prior colonoscopy in June 2021 was also complicated by poor relaxation and moderate to poor bowel preparation. Scattered diverticulosis noted. Adenomatous polyps of the right colon and transverse colon were excised. Performing Provider:: Remberto Brooks MD Referring Provider:: . Sedation:: Monitored anesthesia care Procedure:: After informed consent was obtained the patient was taken to the endoscopy suite. Sedation ensued after the patient was transferred to the left lateral decubitus position. Pulse, blood pressure, and oxygen saturation were monitored throughout the procedure. Digital rectal exam revealed no significant abnormality. The colonoscope was placed in position. The entire colon was evaluated. The colonoscope was carefully removed and the patient was transferred to recovery in stable condition. Please see findings and specimens below for detail. Findings:: Bowel preparation fair Hemorrhoidal tags Mild scattered diverticulosis Moderate lack of relaxation Specimens:: None Recommendations:: Repeat colonoscopy in 3-5 years secondary to history of polyps and moderate lack of relaxation. Complications:: No immediate Estimated blood obtained (mL): 0 Colonoscopy Component Colonoscopy Component Was a colonoscopy performed during today's procedure?: Yes Recommended follow up colonoscopy of at least 10 years?: No If no, follow up colonoscopy recommended in ___ years?: (See above) Reason for not recommending >/= 10 yr follow-up interval?: (See above)
[2023-02-14 09:07] VITALS: O2SAT 95
[2023-02-14 09:35] VITALS: BP 89/43; PULSE 75; RESP 17; TEMP 36.1; O2SAT 95
[2023-02-14 09:45] VITALS: BP 103/62; PULSE 69; RESP 17; O2SAT 98
[2023-02-14 09:55] VITALS: BP 115/56; PULSE 64; RESP 16; O2SAT 98
[2023-02-14 10:05] VITALS: BP 95/53; PULSE 67; RESP 17; O2SAT 98
== END 2023-02-14 10:17 | disposition home or self-care (01) ==
PROVIDERS: PCP Internal Medicine Adolescent Medicine; Visit Provider Surgery
PROC: 0DJD8ZZ Inspection of Lower Intestinal Tract, Via Natural or Artificial Opening Endoscopic (ICD-10-PCS; CPT 45378; principal; 2023-02-14 09:30)
DX: Z12.11 Encounter for screening for malignant neoplasm of colon (principal); Z86.010 Personal history of colon polyps; K57.30 Diverticulosis of large intestine without perforation or abscess without bleeding
CPT/HCPCS: 45378; J2704

== ENCOUNTER 2023-02-16 09:21 | Outpatient (CLI) | payer BC, SELFPAY ==
--- NOTE | 2023-02-16 09:31 | US_ITS ---
FINAL REPORT CLINICAL HISTORY: ruq pain COMPARISON: None FINDINGS: Sonographic images of the right upper quadrant were obtained. The pancreas is partially obscured. The liver is fatty infiltrated. The gallbladder appears normal without evidence of gallstones.There is no evidence of biliary ductal dilatation.The common duct measures 4mm. Limited images of the right kidney are unremarkable. IMPRESSION: Fatty liver. Reviewed, Interpreted and Dictated by Viet Schreiber III, MD Transcribed by Serena Martin Authenticated and [facility]
--- NOTE | 2023-02-16 09:31 | MM_ITS ---
PROCEDURE INFORMATION: Exam: MG Bilateral Screening 3D Mammography Exam date and time: 02/16/2023 9:49 AM Age: 57 years old Clinical indication: Screening examination TECHNIQUE: Imaging protocol: Bilateral Screening tomosynthesis and 2D mammography including computer-aided detection (CAD) when performed. COMPARISON: 1. MG MM DIG SCREENING MAMM BI W/CAD 01/24/2022 12:52 PM 2. MG MM DIG MAMM BI DX W/CAD 01/12/2021 1:39 PM 3. MG MM DIG SCREENING MAMM BI W/CAD 09/10/2019 4:05 PM FINDINGS: MAMMOGRAPHY: Breast composition: There are scattered areas of fibroglandular density. Mass: No suspicious masses. Architectural distortion: No suspicious distortion. Post reduction changes noted bilaterally Calcifications: No suspicious calcifications. Asymmetric density: None. Skin thickening: None. Axillary adenopathy: None. IMPRESSION: No mammographic evidence of malignancy. Annual screening is recommended unless otherwise clinically indicated. ASSESSMENT: BI-RADS Category 2: Benign
== END 2023-02-16 23:59 ==
LOC: RAD 09:22
PROVIDERS: PCP Internal Medicine Adolescent Medicine; Visit Provider Nurse Practitioner Family
DX: R10.11 Right upper quadrant pain (principal); Z12.31 Encounter for screening mammogram for malignant neoplasm of breast
CPT/HCPCS: 76705; 77063; 77067

== ENCOUNTER 2023-06-16 16:52 | Emergency (ER) | payer BC, SELFPAY ==
--- OUTSIDE RECORDS SUMMARY | 2023-06-16 16:55 | XMS_ITS | Continuity of Care Document ---
Author Name Unknown Organization [facility] Address [address] [address] Phone Care Team Providers Care Balance Staff Staker Name Role Phone Norris Tenorio MD Unavailable Unavailable Allergies, Adverse Reactions, Alerts Substance Reaction Status Criticality MORPHINE HCL Active No Information Sulfa (Sulfonamide Antibiotics) Active No Information Medications Medication Instructions Dosage Effective Dates (start - stop) Status Comments meloxicam 15 mg tablet take 1 tablet by oral route every day 15 MG - Active omeprazole 40 mg capsule,delayed release take 1 capsule by oral route every day before a meal 40 MG - Active Procedures Procedure Date Office Visit Level IV Arthrocentesis Small Joint Or Bursa Methylprednisolone Acetate 80mg 021 Office Visit Level IV Arthrocentesis Intermediate Joint/Bursa Methylprednisolone Acetate 80mg 020 Office Visit Level IV New Office Consult Level V Advance Directives Directive Yes / No Effective Date File Name No Information Encounters Encounter Description Practice Location Reason(s) For Visit Diagnoses Date Provider Providers Copied on Encounter [facility] [address] [place] [address], [place], [place], [id number], [place] tel:[phone] [facility] No Information 2 Jona Pisano. [address] [place] [address], [id number]. tel:[phone] Office Visit Level IV [facility] [address] [place] [address], [id number], [place] tel:[phone] [facility] Joint Pain (chief complaint) Osteoarthriti s CMC JointsHand PainBody mass index (BMI) 32.0-32.9, adult May- 1 Wells [employer] Lisa. [address] [place] [address], [id number], [place]. tel:[phone] Referring Provider: Ely Martinez, [address] [place] [address], [id number]. tel:[phone] Office Visit Level IV [facility] [address] [place] [address], [id number], [place] tel:[phone] [facility] (chief complaint) Body mass index (BMI) 32.0-32.9, adultOsteoart hritis of Both FeetOsteoarth ritis CMC JointsJoint PainBack painHand PainExtremity NumbnessFatig ueRheumatoid Factor PositiveNSAID Half-Way Use 1 Jona Pisano. [address] [place] [address], [id number]. tel:[phone] Referring Provider: Ely Martinez, [address] [place] [address], [id number]. tel:[phone] [facility] [address] [place] [address], [id number], [place] tel:[phone] [facility] C[facility] OA (chief complaint) Osteoarthriti s CMC Joints 0 Corry Kirk. [address] [place] [address], [place], [place], [id number]. tel:[phone] Referring Provider: Ely Martinez, [address] [place] [address], [id number]. tel:[phone] Office Visit Level IV [facility] [address] [place] [address], [id number], [place] tel:[phone] [facility] Joint Pain (chief complaint) Osteoarthriti s of Both FeetOsteoarth ritis CMC JointsJoint PainBack painHand PainExtremity NumbnessFatig ueNight sweatsRheumat oid Factor PositiveBody mass index (BMI) 31.0-31.9, adult 0 [facility]. [address] [place] [address], [id number]. tel:[phone] Referring Provider: Ely Martinez, [address] [place] [address], [id number]. tel:[phone] New Office Consult Level V [facility] [address] [place] [address], [id number], [place] tel:[phone] [facility] Body mass index (BMI) 30.0-30.9, adultJoint PainHand PainOsteoarth ritis CMC JointsExtremi ty NumbnessBack painOsteoarth ritis of Both FeetRheumatoi d Factor PositiveIrrit able bowel syndromeAsthm aFatigueNight sweats 0 [facility] [address] [place] [address], [place], [place], [id number]. tel:[phone] Referring Provider: Ely Martinez, [address] [place] [address], [id number]. tel:[phone] [facility] [address] [place] [address], [id number], tel:[phone] [facility] No Information 0 Jona Pisano. [address], [address], [place], [place], [id number]. tel:[phone] Family History Family Member Type Diagnosis Age At Onset Mother Problem hypertension Mother Problem diabetes Father Problem Arthritis Father Problem cancer of colon Mother Problem malignant neopla sm of breast in first degree relative Payers Payer name Insurance type Covered green party ID Marcel mistry(misty Miranda [facility] [id number] Social History Type Description Quantity Date Captured Comments Sex Female Smoking Status No Information Chief Complaint And Reason For Visit No Information Reason For Referral Reason For Referral No Information Plan Of Treatment Date Type Action Status Goal Lifestyle educat ion regarding diet completed Goal Lifestyle educat ion regarding diet completed Goal Lifestyle educat ion regarding diet completed Future Order: Lab Order CBC With Differential/Platelet ([id number]), Ordered on: Ordered Future Order: Lab Order Comp. Me tabolic Panel (14) ([id number]), Ordered on: Ordered Future Order: Lab Order C-Reacti ve Protein, Quant ([id number]), Ordered on: Ordered Future Order: Lab Order Sediment ation Rate-Westergren ([id number]), Ordered on: Ordered Future Order: Radiology Order Horton nd X-ray; Limited (2 views) ([id number]), Ordered on: Ordered Future Order: Lab Order CBC With Differential/Platelet ([id number]), Ordered on: Ordered Future Order: Lab Order Comp. Me tabolic Panel (14) ([id number]), Ordered on: Ordered Future Order: Lab Order C-Reacti ve Protein, Quant ([id number]), Ordered on: Ordered Future Order: Lab Order Uric Aci d, Serum ([id number]), Ordered on: Ordered Future Order: Lab Order Creatine Kinase,Total,Serum ([id number]), Ordered on: Ordered Future Order: Lab Order TSH ([id number]), Ordered on: Ordered Future Order: Lab Order Hepatiti s Panel (4) ([id number]), Ordered on: Ordered Future Order: Lab Order Quanti FERON - TB Gold IT Plus (Theratest) (TBGP), Ordered on: Ordered Future Order: Lab Order Cyclic Citrullinated Peptide-4P (Theratest) (CCP4P), Ordered on: Ordered Future Order: Lab Order Rheuma toid Factor/3 IgM, IgG, IgA (Theratest) (RF3), Ordered on: Ordered History Of Present Illness Encounter Date Complaint History Of Prese nt Illness Joint Pain The severity of the problem is moderate. Pain scale: 10/10. The symptoms are intermittent. The problem has not changed. The primary symptoms reported include: pain and stiffness. The patient's assessment of treatment is: not helping. The locations affected since last visit are bilateral hand. Associated symptoms include AM stiffness. Pertinent negatives include fever, infection, fatigue, inactivity gelling, eye symptoms, change in vision, skin lesion(s), chest pain, changing cough, edema and abdominal pain. Additional information: Patient is here off schedule for worsening left cmc pain. No help with NSAIDs. Joint Pain The severity of the problem is moderate. Pain scale: 7/10. The symptoms are intermittent. The problem has not changed. The primary symptoms reported include: pain and stiffness. The patient's assessment of treatment is: not helping. The locations affected since last visit are bilateral hand. Associated symptoms include fatigue. Pertinent negatives include infection, AM stiffness, inactivity gelling, eye symptoms, change in vision, skin lesion(s), chest pain, changing cough and abdominal pain. Additional information: Still with pain in 1st CMC joints, L>R. Pain with gripping. Other joints are ok. Less tingling in hands. Ibuprofen does not help. CMC OA Joint Pain The severity of the problem is moderate. Pain scale: 6/10. The symptoms are intermittent. The problem has not changed. The primary symptoms reported include: pain and stiffness. The patient's assessment of treatment is: not helping. The locations affected since last visit are bilateral hand. Associated symptoms include fatigue. Pertinent negatives include infection, AM stiffness, inactivity gelling, eye symptoms, change in vision, skin lesion(s), chest pain, changing cough and abdominal pain. Additional information: Increased pain in 1st CMC joints, L>R. Pain with gripping. Other joints are ok. Tingling still a problem in hands. 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 Nerve conduction studies were normal. She does have positive Tinel on the left, negative Phalen bilaterally. Related to Hand Pain Worsening. Request i njection and referral to a hand surgeon. She cannot remember who she saw previously for surgery on the right. The risks, benefits and side effects of treatment were discussed with the patient. Procedure explained to patient, she verbalized understanding and consent. See procedure note. Immediate hemostasis obtained. Post-procedure instructions explained to patient, she verbalized understanding. Related to Osteoarthritis CMC Joints Risks of NSAIDS disc ussed including GI upset, GI bleeding, renal and hepatic risks and the risks of cardiovascular disease and stroke. Warned pt not to take with other NSAIDs including OTC NSAIDs. 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 Nerve conduction studies were normal. Related to Hand Pain Nerve conduction bill dies normal. Etiology unclear. I offered neurology referral. We will arrange. Related to Extremity Numbness Weakly positive with out a titer. Full rheumatoid titer and CCP antibody were negative. This was likely a false-positive test. 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 She clearly has an osteophyte on her left foot. 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 Related to Osteo arthritis CMC Joints 1st CMC joints are h er worst joints. She has failed splinting. Ibuprofen is ineffective. I will try meloxicam. She can use topical voltaren. If ineffective, we will reinject. I will get labs and see in 6 months if she does well. Related to Joint Pain Lifestyle education regarding di et Related to Body mass index [BMI] 32.0-32.9, adult Left CMC injection. See procedure documentation. Related to Osteoarthritis CMC Joints Tuberculosis test was negative. Related to Night sweats She has chronic back pain without radicular symptoms. 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 Nerve conduction studies were normal. Related to Hand Pain Nerve conduction bill dies normal. Etiology unclear. I offered neurology referral. We will arrange. Related to Extremity Numbness Weakly positive with out a titer. Full rheumatoid titer and CCP antibody were negative. This was likely a false-positive test. Related to Rheumatoid Factor Positive Clinically, this joanna ears to be osteoarthritis she has what appears to be osteoarthritis of the 1st CMC joint. She has failed splinting. Nonsteroidal anti-inflammatory drugs are ineffective. She would like to try injection. We will arrange this.I did review her labs with her and told her I see no evidence of inflammatory arthritis.I will see her in follow-up in 4 months. Related to Joint Pain See above. 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 She clearly has an osteophyte on her left foot. 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 I will obtain full titers and CCP antibody. Related to Rheumatoid Factor Positive She has chronic back pain without radicular symptoms. Related to Back pain I will x-ray her hands. Related to Osteoarthritis CMC Joints She has osteoarthrit is of the 1st CMC joint and she also likely has carpal tunnel syndrome. Nerve conduction studies have been ordered. 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 She clearly has an osteophyte on her left foot. 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 Related to Extremity Numbness Clinically, this joanna ears to be osteoarthritis and probably carpal tunnel syndrome of both hands. Unfortunately, she has failed nighttime splints. I think we need to get nerve conduction studies. I will also obtain a rheumatoid factor titer and a CCP antibody. I will x-ray her hands. However, clinically this does not appear to be rheumatoid arthritis. She also has significant osteoarthritis of her 1st CMC joint and some osteoarthritis of her midfoot. I will see her in follow-up in about 4 weeks to review her nerve conduction study tests and labs. Related to Joint Pain Lifestyle education regarding di et Related to Body mass index (BMI) 30.0-30.9, adult Assessments Type Assessment Date No Information Patient Care Teams Name Effective Dates (start - stop) Status Members No Information
[2023-06-16 17:00] VITALS: BP 143/71; PULSE 83; RESP 18; TEMP 37; O2SAT 99; BMI 37.8
--- NOTE | 2023-06-16 17:06 | EXP.UTC ---
Discharge Plan Disposition Patient Disposition: Home, Self-Care Condition: Good Prescriptions Prescriptions: New amoxicillin 875 mg tablet 875 mg PO Q12H Qty: 20 0RF benzonatate 100 mg capsule 100 mg PO TIDP PRN (Reason: Cough) Qty: 30 0RF methylprednisolone 4 mg Tablets,Dose Pack 4 mg PO DIRECTED 6 Days Qty: 21 0RF Rx Instructions: Take 1 pack as directed for 6 days Referrals Follow up/Referrals: Peewee Camargo MD [Primary Care Provider] - See instructions Activity Restrictions/Add. Instructions Additional Instructions/Restrictions: Drink plenty of fluids. Take tylenol or ibuprofen for pain or fever. Take the medications as directed. Follow up with your regular doctor. GO TO THE ER FOR ANY WORSENING SYMPTOMS Clinical Impressions Clinical Impression: Pharyngitis Instructions Patient Instructions: Sore Throat, DI for Pharyngitis/Tonsillopharyngitis -- Adult Discharge ED Provider: Theo Boyd [facility] General Stated complaint: Sore throat Time Seen by Provider: 06/16/23 17:06 History of Present Illness Provider Complaint: She states that for the past 3 days she has had worsening sinus congestion, sore throat and malaise. She has been exposed to strep throat. Related Data Previous Rx's Medication Instructions Recorded amoxicillin 875 mg tablet 875 mg PO Q12H #20 tabs 06/16/23 benzonatate 100 mg capsule 100 mg PO TIDP PRN Cough #30 caps 06/16/23 methylprednisolone 4 mg tablets in 4 mg PO DIRECTED 6 days #21 tabs 06/16/23 a dose pack Allergies Allergy/AdvReac Type Severity Reaction Status Date / Time morphine [MORPHINE] Allergy Unknown ITCHING Verified 06/16/23 17:10 Sulfa (Sulfonamide Allergy Unknown NA-NAUSEA/V Verified 06/16/23 17:10 Antibiotics) OMITING [SULFA (SULFONAMIDE ANTIBIOTICS)] [facility] Disclaimer: The information contained in this section may have been updated after the patient was seen, as this information can be updated by other users. Medical History Cystocele History of skin cancer Kidney stone Left elbow fracture Rectocele LATONIA (stress urinary incontinence, female) Urinary frequency Urinary urgency Surgical History History of bilateral breast reduction surgery History of foot surgery History of hernia repair History of hysterectomy History of tubal ligation Family History Other Anemia Asthma Cancer Diabetes Heart attack Hypertension Kidney disease Thyroid disorder Social History Smoking Status: Never smoker alcohol intake: never substance use type: denies use current occupational status: unemployed Travel in the last 8 weeks: None household members: spouse housing: house current occupational exposures/hazards: No caffeine: Yes ROS Obtained: Yes All systems reviewed & no additional complaints except as documented Constitutional Constitutional: Reports chills and Reports fever(s) Eyes Eyes: Denies eye discharge ENT Ears, Nose, Mouth, and Throat: Reports as per HPI Cardiovascular Cardiovascular: Denies chest pain Respiratory Respiratory: Denies chest congestion and Reports cough Gastrointestinal Gastrointestingal: Reports nausea; Denies abdominal pain, constipation, cramping, diarrhea or vomiting Musculoskeletal Musculoskeletal: Denies arthralgias Integumentary/Breasts Skin/Breast: Denies rash Neurologic Neurologic: Denies paresthesias Physical Exam General General appearance: alert and in no apparent distress Head Head exam: atraumatic, normocephalic and normal inspection Eye Eye exam: Present normal appearance, PERRL and EOMI ENT ENT exam: Present mucous membranes moist and normal external ear exam Expanded ENT Exam TM/Canal exam: Bilateral TM: erythema and bulging Nose exam: Absent sinus tenderness Mouth exam: Present normal external inspection; Absent drooling Teeth exam: Present normal inspection Throat exam: Present tonsillar erythema, tonsillomegaly and tonsillar exudate Neck Neck exam: Present normal inspection, full ROM and trachea midline; Absent tenderness, meningismus or lymphadenopathy Chest Chest inspection: Present normal inspection and symmetric chest wall rise; Absent tenderness Respiratory Respiratory exam: Present normal lung sounds bilaterally; Absent respiratory distress, wheezes, stridor or accessory muscle use Cardiovascular Cardiovascular exam: Present regular rate and normal rhythm; Absent systolic murmur or diastolic murmur Abdominal Exam Abdominal exam: Present soft and normal bowel sounds; Absent distention, tenderness, guarding, rebound or rigidity Extremities Exam Extremities exam: Present normal inspection and normal capillary refill; Absent calf tenderness Back Exam Back exam: Present normal inspection and full ROM; Absent tenderness, CVA tenderness (R) or CVA tenderness (L) Neurological Exam Neurological exam: Present alert, oriented X3 and CN II-XII intact Psychiatric Psychiatric exam: Present normal affect and normal mood Skin Skin exam: Present warm, dry, intact and normal color Medical Decision Making Medical Records Medical records reviewed: No I reviewed the patient's medical records. Tal Inquiry Pt receiving controlled substance: No
[2023-06-16 17:21] LABS: UTC Strep Screen (Rapid) Negative (Negative)
[2023-06-16 17:50] VITALS: BP 143/71; PULSE 83; RESP 18; TEMP 37; O2SAT 99
== END 2023-06-16 17:50 | disposition home or self-care (01) ==
PROVIDERS: Emergency Provider Nurse Practitioner Family; PCP Internal Medicine Adolescent Medicine
DX: J02.9 Acute pharyngitis, unspecified (principal); R09.81 Nasal congestion; Z20.818 Contact with and (suspected) exposure to other bacterial communicable diseases
CPT/HCPCS: 87880; 99212; 99214; G0463

== ENCOUNTER 2023-07-05 10:23 | Outpatient (CLI) | payer BC, SELFPAY ==
--- NOTE | 2023-07-05 10:32 | FL_ITS ---
FINAL REPORT CLINICAL HISTORY: OROPHARYNGEAL DYSPHAGIA 2:37 fluoro time 2402.51DAP FINDINGS: UPPER GI EXAM HISTORY: Dysphagia. PROCEDURE: The patient ingested barium. Effervescent crystals were also administered. Spot and overhead films were obtained. FINDINGS: The esophagus is normal. There is a small sliding-type hiatal hernia. A 13 mm barium tablet passes to the esophagus and into the stomach without delay. There is no gastroesophageal reflux. Peristalsis is normal. The rugal fold pattern of the stomach is normal. The duodenum is poorly distended. There is a diverticulum seen in the third portion of the duodenum. Number of images: 23 Fluoro time: 2 minutes 37 seconds DAP: 2402.51 uGym2. Radiation exposure in Reference air Kerma: Not provided. mGy. IMPRESSION: Small sliding-type hiatal hernia. Duodenal diverticulum. Films reviewed , interpreted and dictated by Dr. Fitch. Transcribed by Rad Williamson PA-C. Reviewed, Interpreted and Dictated by Kobe Fitch MD Transcribed by YUE Tijerina Authenticated and [facility]
[2023-07-05] MEDS: BARIUM SULFATE (E-Z-HD 340GM);135ML BOTTLE 135 ML PO (11:08)
[2023-07-05] MEDS: BARIUM SULFATE(LIQUID E-Z-PAQUE);355ML BOTTLE 355 ML PO (11:08)
[2023-07-05] MEDS: E-Z-GASII EFFERVESCENT GRANULES;1PK 1 EACH PO (11:08)
== END 2023-07-05 23:59 | disposition home or self-care (01) ==
LOC: RAD 10:24
PROVIDERS: PCP Nurse Practitioner Family; Visit Provider Nurse Practitioner Family
DX: R13.12 Dysphagia, oropharyngeal phase (principal)
CPT/HCPCS: 74246

== ENCOUNTER 2023-07-05 11:01 | Emergency (ER) | payer BC, SELFPAY ==
[2023-07-05 11:15] VITALS: BP 124/92; PULSE 70; RESP 18; TEMP 36.5; O2SAT 98; BMI 37.9
--- NOTE | 2023-07-05 11:42 | ED_ITS ---
Discharge Plan Disposition Patient Disposition: Home, Self-Care Condition: Good Prescriptions Prescriptions: New amoxicillin 500 mg capsule 500 mg PO TID 7 Days Qty: 21 0RF cyclobenzaprine 10 mg tablet 10 mg PO TID PRN (Reason: muscle spasm) Qty: 12 0RF No Action cetirizine 10 mg tablet 10 mg PO DAILY Patient Comments: TAKE ONE TABLET BY MOUTH EVERY DAY omeprazole 40 mg capsule,delayed release(DR/EC) 40 mg PO DAILY Patient Comments: TAKE ONE CAPSULE BY MOUTH EVERY DAY fluticasone propionate 50 mcg/actuation spray,suspension 2 spray INTRANASAL DAILY Patient Comments: INSTILL 2 SPRAYS IN EACH NOSTRIL EVERY DAY Referrals Follow up/Referrals: Megan Velasquez APRN [Primary Care Provider] - See instructions Activity Restrictions/Add. Instructions Additional Instructions/Restrictions: *Ibuprofen ricarda 6 hours with meal as needed for pain/inflammation *Not additional anti-inflammatory like motrin, aleve, advil with the above amount of ibuprofen. You can still take Tylenol every 4 hours as needed if you need something else for pain *Ice 20 minutes every 2 hours for the first 48 hours after the initial injury followed by moist heat every 20 minutes 3-4 times a day to affected area *Muscle relaxer every 8 hours as needed for muscle spasms but remember, it WILL cause drowsiness You cannot take it and drive, operate machinery or care for small children. *Keep this area active, no movement leads to more stiffness, However take it easy and avoid heavy lifting pushing or pulling *Follow up with you family doctor if no improvement for further treatment ? Clinical Impressions Clinical Impression: Muscle spasm Instructions Patient Instructions: Middle Ear Infection, DI for Muscle Spasm Discharge ED Provider: Stacey Muñoz [facility] [place] General Stated complaint: neck and ear pain Mode of Arrival: Ambulatory Source of Information: Patient Limitations: No Limitations Time Seen by Provider: 07/05/23 11:42 Description of Symptoms (Recalled from Triage Doc. by RN): PATIENT C/O LEFT EAR AND NECK PAIN X 3 DAYS HEENT Symptoms (Recalled from RN notes): Yes Resp Symptoms (Recalled from RN notes): No Skin Symptoms (Recalled from RN notes): No MS Symptoms (Recalled from RN notes): No Functional Status (Recalled from RN notes): WNL History of Present Illness Provider Complaint: Patient states that she has been having pain and pressure in her left ear, pain in left side of neck that is worse when she tries to move her or turn her head certain ways States that she has been having issues with muscle spasms but feels like she can hear a popping noise in her ear at time not sure if it is in her ear or neck Related Data Home Medications Medication Instructions Recorded Confirmed cetirizine 10 mg tablet 10 mg PO DAILY 07/05/23 07/05/23 fluticasone propionate 50 2 spray intranasal DAILY 07/05/23 07/05/23 mcg/actuation nasal spray,suspension omeprazole 40 mg capsule,delayed 40 mg PO DAILY 07/05/23 07/05/23 release Previous Rx's Medication Instructions Recorded amoxicillin 500 mg capsule 500 mg PO TID 7 days #21 caps 07/05/23 cyclobenzaprine 10 mg tablet 10 mg PO TID PRN muscle spasm #12 07/05/23 tabs Allergies Allergy/AdvReac Type Severity Reaction Status Date / Time morphine [MORPHINE] Allergy Unknown ITCHING Verified 06/16/23 17:10 Sulfa (Sulfonamide Allergy Unknown NA-NAUSEA/V Verified 06/16/23 17:10 Antibiotics) OMITING [SULFA (SULFONAMIDE ANTIBIOTICS)] Worker's Comp Is this a Worker's Comp case?: No [facility] Disclaimer: The information contained in this section may have been updated after the patient was seen, as this information can be updated by other users. Medical History Cystocele History of skin cancer Kidney stone Left elbow fracture Rectocele LATONIA (stress urinary incontinence, female) Urinary frequency Urinary urgency Surgical History History of bilateral breast reduction surgery History of foot surgery History of hernia repair History of hysterectomy History of tubal ligation Family History Other Anemia Asthma Cancer Diabetes Heart attack Hypertension Kidney disease Thyroid disorder Social History Smoking Status: Never smoker alcohol intake: never substance use type: denies use current occupational status: unemployed Travel in the last 8 weeks: None household members: spouse housing: house current occupational exposures/hazards: No caffeine: Yes ROS Obtained: Yes All systems reviewed & no additional complaints except as documented and Yes Systems reviewed as appropriate & no additional complaints except as documented Constitutional Constitutional: Reports system reviewed and no additional complaints, except as documented, Reports as per HPI and Denies fever(s) ENT Ears, Nose, Mouth, and Throat: Reports system reviewed and no additional complaints, except as documented, Reports as per HPI and Reports otalgia Cardiovascular Cardiovascular: Reports system reviewed and no additional complaints, except as documented and Reports as per HPI Respiratory Respiratory: Reports system reviewed and no additional complaints, except as documented and Reports as per HPI Gastrointestinal Gastrointestingal: Reports system reviewed and no additional complaints, except as documented and as per HPI Musculoskeletal Musculoskeletal: Reports system reviewed and no additional complaints, except as documented, Reports as per HPI and Reports other (muscle spasms and tightness on left side of neck worse with movement) Physical Exam General General appearance: alert and in no apparent distress ENT ENT exam: Present mucous membranes moist Expanded ENT Exam TM/Canal exam: Left TM: erythema and bulging Neck Neck exam: Present trachea midline and tenderness Respiratory Respiratory exam: Present normal lung sounds bilaterally; Absent respiratory distress or wheezes Cardiovascular Cardiovascular exam: Present regular rate, normal rhythm and normal heart sounds Back Exam Back 1 view image: 2 1. reports tight, achy like pain that is worse with movement denies known injury Neurological Exam Neurological exam: Present alert, oriented X3 and normal gait Medical Decision Making Tal Inquiry Pt receiving controlled substance: No Tal was queried for this patient: No Vital Signs: 07/05/23 11:15 Temperature 97.7 F Temperature Source Oral Pulse Rate [Left Brachial] 70 Respiratory Rate 18 Blood Pressure [Left Arm] 124/92 H Blood Pressure Mean [Left Arm] 102 Blood Pressure Source [Left Arm] Automatic Cuff Blood Pressure Position [Left Arm] Sitting 02 Sat by Pulse Oximetry 98 Oxygen Delivery Method Room Air Radiology Data #1: Image(s): C-Spine
--- NOTE | 2023-07-05 11:46 | XR_ITS ---
FINAL REPORT CLINICAL HISTORY: having pain and spasms in neck; left sided neck pain FINDINGS: CERVICAL SPINE 5 views were obtained. There is no acute fracture. Vertebrae are normal height. There is no malalignment. There is mild disc space narrowing at C6-7. Neuroforamen appears patent. There is no soft tissue abnormality. IMPRESSION: No acute bony abnormality. Reviewed, Interpreted and Dictated by Kobe Fitch MD Transcribed by Fanny Capellan Authenticated and [facility]
[2023-07-05 14:06] VITALS: BP 124/92; PULSE 70; RESP 18; TEMP 36.5; O2SAT 98
== END 2023-07-05 14:12 | disposition home or self-care (01) ==
PROVIDERS: Emergency Provider Nurse Practitioner; PCP Nurse Practitioner Family
DX: M54.2 Cervicalgia (principal); H92.02 Otalgia, left ear; M62.838 Other muscle spasm
CPT/HCPCS: 72050; 99212; 99214; G0463

== ENCOUNTER 2023-08-15 17:00 | Outpatient (RCR) | payer BC, SELFPAY ==
--- NOTE | 2023-07-31 12:07 | HMH.PTOPEV ---
PT Outpatient Evaluation Rehab PT Outpatient Evaluation Start: 07/31/23 08:01 Freq: Status: Active Protocol: Document 07/31/23 08:01 AGNIESZKA (Rec: 07/31/23 10:08 [email or web address] [id number]) E-signed By Sarah Menendez, PT Outpatient Therapy Subjective History Subjective History This is an initial evaluation for Jomar Rodas who presents with referral for neck pain. Pt reports she has had her neck pain for ~5-6 years but has progressively gotten worse . Pt has tried PT evaluation before but was limited by other medical concerns. Pt went to [facility] ER on 07/04 d/t neck pain/muscle spasms and L ear pain. Pt had a cervical X- ray that was clear from acute abnormality. Pt reports her pain goes into her L shoulder, L ear, and sometimes up into her L head/face. Does have HAs . Pt reports her pain is sometimes burning but denies numbness or tingling. All symptoms are left-sided including her HAs but she does have chronic R shoulder pain d/t previous surgeries. Pt descirbes a popping sensation in the L muscle when she rotates her neck. Denies any known history or accident leading to her pain. Pt denies any jaw pain or pain when chewing. Denies having a pacemaker or recent cancer diagnosis. Denies significant medical history. Denies having MRI on neck. New diagnosis of cancer in past 12 No months? Chief Complaint Pain,Spasms Symptom Type Ache,Burning Symptoms Relieved By Heat,OTC Meds,Prescription Meds Level of pain today (0-10) 2 Pain scale - at its best (0-10) 2 Pain scale - at its worst (0-10) 10 Cervical Eval Palpation Cervical Muscles L Cervical Paraspinal,R Suboccipital,L Suboccipital,L SCM,R CT Junction,L CT Junction,R Upper Trapezius,L Upper Trapezius,R Thoracic Paraspinals,L Thoracic Paraspinals Cervical/Thoracic Palpation Findings Tenderness,Muscle Guarding Posture Head/C-Spine Posture Sitting Position Flexed Flexibility Deficits Upper Trapezius Muscle Length (R) Moderate Tightness,(L) Moderate Tightness Levaetor Scapulae Muscle Length (R) Moderate Tightness,(L) Moderate Tightness Scalene Group Muscle Length (R) Moderate Tightness,(L) Moderate Tightness Sternocleidomastoid Muscle Length (R) Moderate Tightness,(L) Moderate Tightness Passive Joint Mobility Cervical PIVM WNL: R C2/3 L C2/3 R C3/4 L C3/4 AROM Cervical Spine Extension Active Range of 45 Motion (degrees) Cervical Spine Flexion Active Range of 60 Motion (degrees) Cervical Spine Right Lateral Flexion 30 Active Range of Motion (degrees) Cervical Spine Left Lateral Flexion 18 Active Range of Motion (degrees) Cervical Spine Right Rotation Active 80 Range of Motion (degrees) Cervical Spine Left Rotation Active 24, painful left Range of Motion (degrees) MMT Bilateral Deltoid (C5) 5 Normal Biceps Brachii Strength Grade 5 Normal Triceps Brachii Strength Grade 5 Normal Special Test C-Spine Foraminal Compression (Spurling) Negative Left,Negative Right Test Neck Disability Index Neck Disability Index Section 1: Pain Intensity The pain is moderate at the moment Section 2: Personal Care (washing, I can look after myself dressing, etc.) normally without causing extra pain Section 3: Lifting I cannot lift or carry anything Section 4: Reading I can read as much as I want to with slight pain in my neck Section 5: Headaches I have severe headaches, which come frequently Section 6: Concentration I can concentrate fully when I want to with no difficulty Section 7: Work I cannot do my usual work Section 8: Driving I can't drive my car as long as I want because of moderate pain in my Section 9: Sleeping My sleep is completely disturbed (5-7 hrs sleepless) Section 10: Recreation I am able to engage in a few of my usual recreation activities because NDI Score 26 Outpatient Therapy Assessment Impairments Problems/Impairmments Palpation Tenderness,Impaired Range of Motion,Impaired Strength,Impaired Standing, Impaired Sitting,Impaired Bending,Subjective C/O Pain Prognosis Rehab Potential Good Clinical Impression Consistent with Diagnosis Yes Short Term Goals Number of Weeks 3 Increase Range of Motion Yes: Increase cervical AROM by 4 deg in each direction to improve functional ROM Improve Neck Disability Index Score Yes: Improve by 3 points. Decrease Subjective C/O Pain Yes: At worst 8/10 to decrease pain severity. Patient to be Ind w/ HEP Yes: Verbalize IND with HEP. Residential Goals Number of Weeks 6 Decreased Palpation Tenderness Yes: 0/4 TTP cervical musculature to decrease symtpom irritability. Increase Range of Motion Yes: Cervical AROM WNL to improve function. Improve Neck Disability Index Score Yes: Improve by 6 points to decrease self-percieved disability. Decrease Subjective C/O Pain Yes: At worst 6/10 to decrease symptom severity and improve QOL. Patient to be Ind w/ Advanced HEP Yes Outpatient Therapy Plan of Care Treatment Plan May Include Therapeutic Exercise Including Home Yes Exercise Program Manual Therapy Techniques Yes Neuromuscular Re-education Yes Therapeutic Activities to Return to Yes Previous Functional/Work Level Gait Training Yes ADL/Self Care Education Yes Mechanical Traction Yes Dry Needling Yes Thermal Modalities Yes Electrical Stimulation Yes Ultrasound/Phonophoresis Yes Iontophoresis Yes Orthotics/Bracing/Splinting Yes Massage Yes Eval/Re-Eval Yes Frequency Times per week 1-2 times Duration Number of Weeks 5-6 weeks Addendums This patient is a candidate for social No or vocational rehab? Patient/Guardian verbally acknowledges Yes understanding of treatment program and consents to further treatment? Patient/Guardian verbally acknowledges Yes understanding of diagnosis, prognosis and goals for treatment? Eval Complexity PT Charges 11322 - Moderate Complexity Shoulder/Elbow Eval Shoulder Objective Measurements Elbow Objective Measurements PHYSICIAN CERTIFICATION: I certify the specified therapy services for Jomar Rodas are required, authorized, and reviewed every 30 days.
== END 2023-08-15 17:05 | disposition home or self-care (01) ==
LOC: PT 17:00
PROVIDERS: Visit Provider Nurse Practitioner Family
DX: M54.2 Cervicalgia (principal)
CPT/HCPCS: 97010; 97014; 97110; 97163; 97535; G0283

== ENCOUNTER 2023-08-29 18:21 | Emergency (ER) | payer BC, SELFPAY ==
[2023-08-29 18:30] VITALS: BP 154/80; PULSE 60; RESP 19; TEMP 36.6; O2SAT 99; BMI 37.2
--- NOTE | 2023-08-29 18:33 | EXP.UTC ---
Discharge Plan Disposition Patient Disposition: Home, Self-Care Condition: Good Prescriptions Prescriptions: New methylprednisolone 4 mg Tablets,Dose Pack 4 mg PO DIRECTED 6 Days Qty: 21 0RF Rx Instructions: Take 1 pack as directed for 6 days No Action omeprazole 40 mg capsule,delayed release(DR/EC) 40 mg PO DAILY Patient Comments: TAKE ONE CAPSULE BY MOUTH EVERY DAY Referrals Follow up/Referrals: Gera Logan DO [Staff Physician] - See instructions Megan Velasquez APRN [Primary Care Provider] - See instructions Activity Restrictions/Add. Instructions Additional Instructions/Restrictions: Rest the extremity, Elevate the extremity as tolerated while you are resting. Take the medication as directed. Follow up with Dr. Logan (orthopedics). Sometimes there can be fractures that don't show up well on the first set of x-rays. So, you should follow up if you continue to have symptoms. I put in a referral but you need to call his office and schedule an appointment. Follow up with your regular doctor. GO TO THE ER FOR ANY WORSENING SYMPTOMS Clinical Impressions Clinical Impression: Right forearm pain, Tendonitis Instructions Patient Instructions: Tendinopathy Discharge ED Provider: Theo Boyd [facility] General Stated complaint: knot on RT arm Time Seen by Provider: 08/29/23 18:33 History of Present Illness Provider Complaint: She states that for the past 2 days she has had right forearm pain and an area of swelling there. She denies any injury. She request an x-ray. Related Data Home Medications Medication Instructions Recorded Confirmed omeprazole 40 mg capsule,delayed 40 mg PO DAILY 07/05/23 08/29/23 release Previous Rx's Medication Instructions Recorded methylprednisolone 4 mg tablets in 4 mg PO DIRECTED 6 days #21 tabs 08/29/23 a dose pack Allergies Allergy/AdvReac Type Severity Reaction Status Date / Time morphine [MORPHINE] Allergy Unknown ITCHING Verified 06/16/23 17:10 Sulfa (Sulfonamide Allergy Unknown NA-NAUSEA/V Verified 06/16/23 17:10 Antibiotics) OMITING [SULFA (SULFONAMIDE ANTIBIOTICS)] [facility] Disclaimer: The information contained in this section may have been updated after the patient was seen, as this information can be updated by other users. Medical History Cystocele History of skin cancer Kidney stone Left elbow fracture Rectocele LATONIA (stress urinary incontinence, female) Urinary frequency Urinary urgency Surgical History History of bilateral breast reduction surgery History of foot surgery History of hernia repair History of hysterectomy History of tubal ligation Family History Other Anemia Asthma Cancer Diabetes Heart attack Hypertension Kidney disease Thyroid disorder Social History Smoking Status: Never smoker alcohol intake: never substance use type: denies use current occupational status: unemployed Travel in the last 8 weeks: None household members: spouse housing: house current occupational exposures/hazards: No caffeine: Yes ROS Obtained: Yes All systems reviewed & no additional complaints except as documented Constitutional Constitutional: Denies chills and Denies fever(s) Eyes Eyes: Denies eye discharge ENT Ears, Nose, Mouth, and Throat: Denies dizziness, Denies otalgia and Denies sore throat Cardiovascular Cardiovascular: Denies chest pain Respiratory Respiratory: Denies shortness of breath, Denies chest congestion, Denies cough, Denies stridor and Denies wheezing Gastrointestinal Gastrointestingal: Denies nausea or vomiting Musculoskeletal Musculoskeletal: Reports as per HPI Integumentary/Breasts Skin/Breast: Denies redness, Denies rash and Denies wounds Neurologic Neurologic: Denies dizziness and Denies paresthesias Allergic/Immunologic Allergic/Immunologic: Denies wheezing Physical Exam General General appearance: alert and in no apparent distress Head Head exam: atraumatic, normocephalic and normal inspection Eye Eye exam: Present normal appearance, PERRL and EOMI ENT ENT exam: Present normal exam, normal oropharynx, mucous membranes moist, TM's normal bilaterally and normal external ear exam Neck Neck exam: Present normal inspection, full ROM and trachea midline; Absent meningismus or lymphadenopathy Chest Chest inspection: Present normal inspection and symmetric chest wall rise; Absent tenderness Respiratory Respiratory exam: Present normal lung sounds bilaterally; Absent respiratory distress Cardiovascular Cardiovascular exam: Present regular rate and normal rhythm; Absent JVD Abdominal Exam Abdominal exam: Present soft and normal bowel sounds; Absent distention, tenderness or guarding Extremities Exam Extremities exam: Present normal capillary refill; Absent calf tenderness Expanded Upper Extremity Exam Right: Shoulder exam: Present normal inspection and full ROM; Absent tenderness or tenderness over AC joint Arm exam: Present normal inspection and full ROM; Absent tenderness Elbow exam: Present normal inspection and full ROM; Absent tenderness, pain w/ pronation/supination or tenderness over radial head Forearm/Wrist exam: Present full ROM, tenderness and swelling; Absent abrasion, laceration, ecchymosis, deformity, crepitus, dislocation, erythema, tenderness over anatomical snuff box or pain with axial thumb loading Hand exam: Present normal inspection and full ROM; Absent tenderness, swelling, abrasion, laceration, skin avulsion, ecchymosis, deformity, crepitus, dislocation, erythema, amputation, nail avulsion or subungual hematoma Neuromotor exam: Normal wrist extension, thumb opposition, thumb IP flexion, thumb adduction and fingers 2-5 abduction Neurosensory exam: Normal radial nerve, ulnar nerve and median nerve Vascular exam: Normal capillary refill, radial pulse and ulnar pulse Back Exam Back exam: Present normal inspection; Absent tenderness Neurological Exam Neurological exam: Present alert and oriented X3 Psychiatric Psychiatric exam: Present normal affect and normal mood Skin Skin exam: Present warm, dry, intact and normal color Lymphatic Lymphatic Findings: no adenopathy Medical Decision Making Medical Records Medical records reviewed: No I reviewed the patient's medical records. Tal Inquiry Pt receiving controlled substance: No
--- NOTE | 2023-08-29 19:05 | XR_ITS ---
PROCEDURE INFORMATION: Exam: XR Right Forearm Exam date and time: 08/29/2023 7:12 PM Age: 58 years old Clinical indication: Pain; Other: Forearm; Additional info: Right arm pain. Pain and lump on posterior side of forearm, midway between the wrist and elbow TECHNIQUE: Imaging protocol: Radiologic exam of the right forearm. Views: 2 views. COMPARISON: No relevant prior studies available. 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 No acute fracture or dislocation. No significant arthropathy. Soft tissues: Normal. IMPRESSION: No acute findings.
--- NOTE | 2023-08-29 19:05 | XR_ITS ---
PROCEDURE INFORMATION: Exam: XR Right Humerus Exam date and time: 08/29/2023 7:07 PM Age: 58 years old Clinical indication: Pain; Other: Arm; Additional info: Right arm pain. Pain and lump on posterior side of forearm, midway between the wrist and elbow TECHNIQUE: Imaging protocol: Radiologic exam of the right humerus. Views: 2 or more views. COMPARISON: CR XR CERVICAL SPINE 4V 07/05/2023 12:12 PM FINDINGS: Bones/joints: No fracture or dislocation. 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 Soft tissues: Normal. IMPRESSION: No acute findings.
[2023-08-29] MEDS: DEXAMETHASONE 4MG/ML 1ML VIAL 8 MG IM (19:37)
[2023-08-29 19:43] VITALS: BP 154/80; PULSE 60; RESP 19; TEMP 36.6; O2SAT 99
== END 2023-08-29 19:45 | disposition home or self-care (01) ==
PROVIDERS: Emergency Provider Nurse Practitioner Family; PCP Nurse Practitioner Family
DX: M67.931 Unspecified disorder of synovium and tendon, right forearm (principal); M79.631 Pain in right forearm
CPT/HCPCS: 73060; 73090; 96372; 99212; 99214; G0463; J1100

== ENCOUNTER 2023-09-26 16:47 | Outpatient (CLI) | payer BC, SELFPAY ==
--- NOTE | 2023-09-26 16:47 | MR_ITS ---
FINAL REPORT CLINICAL HISTORY: Rt Forearm Mass. Lump on posterior aspect of arm. put marker where knot is COMPARISON: None FINDINGS: Multiplanar MR imaging was obtained of the right forearm. A skin marker was placed over the lateral aspect of the distal forearm. No underlying soft tissue mass identified. The bones are unremarkable. IMPRESSION: No definite abnormality identified to correspond to the level of the skin marker. Reviewed, Interpreted and Dictated by Kobe Fitch MD Transcribed by Serena Martin Authenticated and [facility]
== END 2023-09-26 23:59 | disposition home or self-care (01) ==
LOC: RAD 16:47
PROVIDERS: PCP Internal Medicine Adolescent Medicine; Visit Provider Physician Assistant
DX: R22.31 Localized swelling, mass and lump, right upper limb (principal)
CPT/HCPCS: 73218

== ENCOUNTER 2023-10-12 16:02 | Emergency (ER) | payer BC, SELFPAY ==
[2023-10-12 16:35] VITALS: BP 131/82; PULSE 91; RESP 20; TEMP 37.2; O2SAT 99; BMI 35.9
[2023-10-12 16:48] LABS: UTC Strep Screen (Rapid) Negative (Negative)
--- NOTE | 2023-10-12 17:00 | EXP.UTC ---
Discharge Plan Disposition Patient Disposition: Home, Self-Care Condition: Good Prescriptions Prescriptions: New azithromycin [Zithromax Z-Fidel] 250 mg tablet See Rx Instructions .ROUTE .COMPLEX 5 Days Qty: 6 0RF Rx Instructions: For 250 mg dose pack: take 500 mg today (day 1), then 250 mg for 4 days (days 2-5) promethazine-DM 6.25-15 mg/5 mL syrup 5 ml PO Q6H PRN (Reason: cough) Qty: 118 0RF No Action furosemide 40 mg tablet 40 mg PO DAILY levothyroxine [Synthroid] 50 mcg tablet 50 mcg PO DAILY Zepbound 5 mg/0.5 mL pen injector 5 mg SQ WEEKLY Patient Comments: inject THE contents of 1 pen (5 MG) SUBCUTANEOUSLY ONCE a WEEK omeprazole 40 mg capsule,delayed release(DR/EC) 40 mg PO DAILY Patient Comments: TAKE ONE CAPSULE BY MOUTH EVERY DAY Referrals Follow up/Referrals: Peewee Camargo MD [Primary Care Provider] - See instructions Activity Restrictions/Add. Instructions Additional Instructions/Restrictions: *Monitor Temp, Over the counter Motrin or Tylenol as directed/as needed Tylenol every 4 hours and Motrin every 6 hours (as long as your family doctor has told you that you can take it) for fever or pain. and straight to ER if unable to lower temp less than 101.0 after medication given *Warm salt water gargles may help to soothe the throat *Throat Lozenges? *Warm fluids like tea with honey may help to soothe the throat? *Sleep elevated *Humidifier/Vaporizer Your throat swab was sent for culture. Those results are typically sent to your primary care. Be sure to follow up in 2-3 days with your family doctor/primary care physician if no improvement so they can review those result and treat if necessary. If you don?t have a primary care doctor, I recommend you get one but in the mean time, you will have to return to a walk in clinic Follow up IMMEDIATELY for new or worsening symptoms or no Noticeable improvement over the next 48-72 hours. 911 for difficulty breathing or swallowing Clinical Impressions Clinical Impression: Pharyngitis Qualifiers: Pharyngitis/tonsillitis etiology: unspecified etiology Qualified Code(s): J02.9 - Acute pharyngitis, unspecified Instructions Patient Instructions: Sore Throat Print Language Print Language: [place] Citizen Discharge ED Provider: Stacey Muñoz [facility] General Stated complaint: sore throat Mode of Arrival: Ambulatory Source of Information: Patient Limitations: No Limitations Time Seen by Provider: 10/12/23 17:01 Description of Symptoms (Recalled from Triage Doc. by RN): PATIENT C/O SORE THROAT X 2 DAYS HEENT Symptoms (Recalled from RN notes): Yes Resp Symptoms (Recalled from RN notes): No Skin Symptoms (Recalled from RN notes): No MS Symptoms (Recalled from RN notes): No Functional Status (Recalled from RN notes): WNL History of Present Illness Provider Complaint: Patient states she has been having sore throat for the last couple of days States that she feels like she does with strep throat so she came in Related Data Home Medications ?Medication ?Instructions ?Recorded ?Confirmed omeprazole 40 mg capsule,delayed 40 mg PO DAILY 07/05/23 10/12/23 release furosemide 40 mg tablet 40 mg PO DAILY 10/12/23 10/12/23 levothyroxine 50 mcg tablet 50 mcg PO DAILY 10/12/23 10/12/23 (Synthroid) tirzepatide (weight loss) 5 mg/0.5 5 mg SQ WEEKLY 10/12/23 10/12/23 mL subcutaneous pen injector (Zepbound) Previous Rx's ?Medication ?Instructions ?Recorded azithromycin 250 mg tablet See Rx Instructions PO .COMPLEX 5 10/12/23 (Zithromax Z-Fidel) days #6 tabs promethazine-DM 6.25 mg-15 mg/5 mL 5 ml PO Q6H PRN cough #118 mL 10/12/23 oral syrup Allergies Allergy/AdvReac Type Severity Reaction Status Date / Time morphine [MORPHINE] Allergy Unknown ITCHING Verified 10/04/23 13:11 Sulfa (Sulfonamide Allergy Unknown NA-NAUSEA/V Verified 10/04/23 13:11 Antibiotics) OMITING [SULFA (SULFONAMIDE ANTIBIOTICS)] Worker's Comp Is this a Worker's Comp case?: No [facility] Disclaimer: The information contained in this section may have been updated after the patient was seen, as this information can be updated by other users. Medical History Cystocele stage 1 LATONIA (stress urinary incontinence, female) Urinary frequency Urinary urgency Rectocele stage 2 History of skin cancer Left elbow fracture Kidney stone Surgical History History of foot surgery History of hernia repair History of bilateral breast reduction surgery History of tubal ligation History of hysterectomy Family History Other Anemia Asthma Cancer Diabetes Heart attack Hypertension Kidney disease Thyroid disorder Social History Smoking Status: Never smoker alcohol intake: never substance use type: denies use current occupational status: unemployed Travel in the last 8 weeks: None household members: spouse housing: house current occupational exposures/hazards: No caffeine: Yes ROS Obtained: Yes All systems reviewed & no additional complaints except as documented and Yes Systems reviewed as appropriate & no additional complaints except as documented Constitutional Constitutional: Reports system reviewed and no additional complaints, except as documented, Reports as per HPI and Reports headache(s) ENT Ears, Nose, Mouth, and Throat: Reports system reviewed and no additional complaints, except as documented, Reports as per HPI, Reports headache(s) and Reports sore throat Cardiovascular Cardiovascular: Reports system reviewed and no additional complaints, except as documented and Reports as per HPI Respiratory Respiratory: Reports system reviewed and no additional complaints, except as documented and Reports as per HPI Gastrointestinal Gastrointestingal: Reports system reviewed and no additional complaints, except as documented and as per HPI Neurologic Neurologic: Reports headache(s) Physical Exam General General appearance: alert and in no apparent distress ENT ENT exam: Present mucous membranes moist Expanded ENT Exam Throat exam: Present tonsillar erythema (small patchy like area noted) Respiratory Respiratory exam: Present normal lung sounds bilaterally; Absent respiratory distress or wheezes Cardiovascular Cardiovascular exam: Present regular rate, normal rhythm and normal heart sounds Abdominal Exam Abdominal exam: Present soft and normal bowel sounds; Absent distention or tenderness Neurological Exam Neurological exam: Present alert, oriented X3 and normal gait Medical Decision Making Tal Inquiry Pt receiving controlled substance: No Tal was queried for this patient: No Vital Signs: 10/12/23 16:35 Temperature 99.0 F Temperature Source Oral Pulse Rate [Left Brachial] 91 H Respiratory Rate 20 Blood Pressure [Left Arm] 131/82 Blood Pressure Mean [Left Arm] 98 Blood Pressure Source [Left Arm] Automatic Cuff Blood Pressure Position [Left Arm] Sitting 02 Sat by Pulse Oximetry 99 Oxygen Delivery Method Room Air Lab Data Lab results reviewed: Yes I reviewed the patient's lab results. Lab Results 10/12/23 16:43: Strep Scn Rapid Clinic Negative Orders (Tests/Meds): ORDERS Category Date Time Status Strep Screen Confirmation Stat Micro 10/12/23 16:43 Received
[2023-10-12] MEDS: METHYLPREDNISOLONE SOD SUCC 125MG VIAL 125 MG IM (17:05)
[2023-10-12 17:07] VITALS: BP 131/82; PULSE 91; RESP 20; TEMP 37.2; O2SAT 99
--- NOTE | 2023-10-15 14:43 | PC.NURSE ---
Critical throat culture results given to Theo Boyd.
== END 2023-10-12 17:09 | disposition home or self-care (01) ==
PROVIDERS: Emergency Provider Nurse Practitioner; PCP Internal Medicine Adolescent Medicine
DX: J02.8 Acute pharyngitis due to other specified organisms (principal); B95.7 Other staphylococcus as the cause of diseases classified elsewhere; R51.9 Headache, unspecified
CPT/HCPCS: 87070; 87077; 87186; 87880; 96372; 99212; 99214; G0463; J2919

== ENCOUNTER 2023-10-21 16:51 | Emergency (ER) | payer BC, SELFPAY ==
[2023-10-21 17:25] VITALS: BP 111/60; PULSE 84; RESP 18; TEMP 36.9; O2SAT 99; BMI 35.0
--- NOTE | 2023-10-21 17:33 | ED_ITS ---
Discharge Plan Disposition Patient Disposition: Home, Self-Care Condition: Good Prescriptions Prescriptions: No Action furosemide 40 mg tablet 40 mg PO DAILY levothyroxine [Synthroid] 50 mcg tablet 50 mcg PO DAILY Zepbound 5 mg/0.5 mL pen injector 5 mg SQ WEEKLY Patient Comments: inject THE contents of 1 pen (5 MG) SUBCUTANEOUSLY ONCE a WEEK azithromycin [Zithromax Z-Fidel] 250 mg tablet See Rx Instructions .ROUTE .COMPLEX 5 Days Qty: 6 0RF Rx Instructions: For 250 mg dose pack: take 500 mg today (day 1), then 250 mg for 4 days (days 2-5) promethazine-DM 6.25-15 mg/5 mL syrup 5 ml PO Q6H PRN (Reason: cough) Qty: 118 0RF doxycycline hyclate 100 mg capsule 100 mg PO Q12 10 Days Qty: 20 0RF omeprazole 40 mg capsule,delayed release(DR/EC) 40 mg PO DAILY Patient Comments: TAKE ONE CAPSULE BY MOUTH EVERY DAY Referrals Follow up/Referrals: Peewee Camargo MD [Primary Care Provider] - See instructions Activity Restrictions/Add. Instructions Additional Instructions/Restrictions: Finish antibiotics as ordered Follow-up with primary care on Monday as scheduled If symptoms worsen or do not improve return Monitor for fever Increase fluid intake Clinical Impressions Clinical Impression: COVID, Dehydration, mild Instructions Patient Instructions: DI for Dehydration -- Adult, DI for Strep Throat, DI for COVID-19 (Suspected or Confirmed ) Print Language Print Language: Nauruan Discharge ED Provider: Yary ([facility])Noah [facility] [place] H[place] General Stated complaint: Dizziness,cough Mode of Arrival: Ambulatory Source of Information: Patient Limitations: No Limitations Time Seen by Provider: 10/21/23 17:33 Description of Symptoms (Recalled from Triage Doc. by RN): PATIENT C/O DIZZINESS, COUGH, UPPER BACK PAIN FROM COUGHING, RUNNY NOSE, HEADACHE, AND OCCASIONAL VOMITING. HEENT Symptoms (Recalled from RN notes): Yes Resp Symptoms (Recalled from RN notes): Yes Skin Symptoms (Recalled from RN notes): No MS Symptoms (Recalled from RN notes): No Functional Status (Recalled from RN notes): WNL History of Present Illness Provider Complaint: 58-year-old female presents for complaints of dizziness, cough, upper back pain from coughing, runny nose, headache, occasional vomiting, fatigue. Patient states she was seen last week tested positive for strep was placed on antibiotics she was exposed to COVID she did lose her taste and smell but was not tested for COVID. Patient states she was called and said she had a staph in her throat on her culture and the antibiotics was changed patient states she still was not feeling any better and unable to eat and drink much. Denies fever Related Data Home Medications ?Medication ?Instructions ?Recorded ?Confirmed omeprazole 40 mg capsule,delayed 40 mg PO DAILY 07/05/23 10/12/23 release furosemide 40 mg tablet 40 mg PO DAILY 10/12/23 10/12/23 levothyroxine 50 mcg tablet 50 mcg PO DAILY 10/12/23 10/12/23 (Synthroid) tirzepatide (weight loss) 5 mg/0.5 5 mg SQ WEEKLY 10/12/23 10/12/23 mL subcutaneous pen injector (Zepbound) Previous Rx's ?Medication ?Instructions ?Recorded azithromycin 250 mg tablet See Rx Instructions PO .COMPLEX 5 10/12/23 (Zithromax Z-Fidel) days #6 tabs promethazine-DM 6.25 mg-15 mg/5 mL 5 ml PO Q6H PRN cough #118 mL 10/12/23 oral syrup doxycycline hyclate 100 mg capsule 100 mg PO Q12 10 days #20 caps 10/15/23 Allergies Allergy/AdvReac Type Severity Reaction Status Date / Time morphine [MORPHINE] Allergy Unknown ITCHING Verified 10/04/23 13:11 Sulfa (Sulfonamide Allergy Unknown NA-NAUSEA/V Verified 10/04/23 13:11 Antibiotics) OMITING [SULFA (SULFONAMIDE ANTIBIOTICS)] Worker's Comp Is this a Worker's Comp case?: No [facility] Disclaimer: The information contained in this section may have been updated after the patient was seen, as this information can be updated by other users. Medical History , [employer]) Cystocele LATONIA (stress urinary incontinence, female) Urinary frequency Urinary urgency Rectocele History of skin cancer Left elbow fracture Kidney stone Surgical History , [employer]PP[employer] C[employer]TER) History of foot surgery History of hernia repair History of bilateral breast reduction surgery History of tubal ligation History of hysterectomy Family History , PEPP[employer] C[employer]TER) Diabetes Anemia Kidney disease Heart attack Cancer Hypertension Thyroid disorder Asthma Social History , [employer]) Smoking Status: Never smoker alcohol intake: never substance use type: denies use current occupational status: unemployed Travel in the last 8 weeks: None household members: spouse housing: house current occupational exposures/hazards: No caffeine: Yes ROS Obtained: Yes Systems reviewed as appropriate & no additional complaints except as documented Physical Exam General General appearance: alert and in no apparent distress Eye Eye exam: Present normal appearance and PERRL ENT ENT exam: Present normal exam, normal oropharynx and TM's normal bilaterally Neck Neck exam: Present normal inspection Respiratory Respiratory exam: Present normal lung sounds bilaterally Cardiovascular Cardiovascular exam: Present regular rate and normal rhythm Abdominal Exam Abdominal exam: Present soft and normal bowel sounds; Absent distention, tenderness or guarding Neurological Exam Neurological exam: Present alert and oriented X3 Medical Decision Making Medical Records Medical records reviewed: Yes I reviewed the patient's medical records. Tal Inquiry Pt receiving controlled substance: No Tal was queried for this patient: No Vital Signs: 10/21/23 17:25 Temperature 98.5 F Temperature Source Oral Pulse Rate [Left Brachial] 84 Respiratory Rate 18 Blood Pressure [Left Arm] 111/60 Blood Pressure Mean [Left Arm] 77 Blood Pressure Source [Left Arm] Automatic Cuff Blood Pressure Position [Left Arm] Sitting 02 Sat by Pulse Oximetry 99 Oxygen Delivery Method Room Air Lab Data 10/21/23 17:40 10/21/23 17:40 Medical Decision Narrative: While in [facility] at 1000 mL of normal saline given IV. 10 mg of potassium given p.o. Discussed labs with patient.
[2023-10-21] MEDS: SODIUM CHLORIDE 0.9% 10ML FLUSH SYRINGE 10 ML IV (17:47)
[2023-10-21] MEDS: 0.9 % SODIUM CHLORIDE 1000ML 1,000 ML 999 ML IV (17:47)
[2023-10-21 17:48] LABS: Basophils # 0.1 K/mm3 (0-0.2); Basophils % 1.4 % (0.1-2.0); Eosinophils # 0.1 K/mm3 (0.0-0.4); Eosinophils % 0.8 % (0.1-12.0); Hematocrit 44.8 % (37.0-47.0); Lymphocytes # 2.4 K/mm3 (0.7-4.5); Lymphocytes % 30.6 % (10-50); Mean Corpuscular HGB Conc 31.3 g/dL (31.8-35.4); Mean Corpuscular Hemoglobin 29.4 pg (27.0-31.2); Mean Corpuscular Volume 93.9 fl (81-99); Mean Platelet Volume 8.1 fl (7.4-10.4); Monocytes # 0.3 K/mm3 (0.1-1.0); Monocytes % 4.5 % (1.7-9.3); Neutrophils # 4.8 K/mm3 (1.8-7.8); Neutrophils % 62.7 % (37.0-80.0); Platelet Count 534 K/mm3 (142-424); Red Blood Count 4.77 M/mm3 (4.20-5.40); Red Cell Distribution Width 13.4 % (11.5-17.5); White Blood Count 7.7 K/mm3 (4.8-10.8)
[2023-10-21 17:53] LABS: Albumin Level 4.2 g/dl (3.5-5.0); Chloride 109 mmol/L (98-107)
[2023-10-21 17:54] LABS: Potassium 3.4 mmoL/L (3.5-5.1); Sodium 141 mmol/L (136-145)
[2023-10-21 17:56] LABS: Alanine Aminotransferase 64 U/L (12-78); Anion Gap 8.4 mEq/L (5-15); Aspartate Amino Transferase 61 U/L (14-36); Blood Urea Nitrogen 18 mg/dl (7-17); Carbon Dioxide 27 mmol/L (22.0-30.0); Creatinine Clearance Estimated 111 mL/min (50-200); Estimated Glomerular Filt Rate 74 ml/min (>60); GFR (African American) 90 ML/MIN (>60)
[2023-10-21 17:57] LABS: Albumin/Globulin Ratio 1.6 (1.1-1.8); Alkaline Phosphatase 93 U/L (38-126); Bilirubin,Total 0.7 mg/dl (0.2-1.3); Calcium 9.3 mg/dl (8.4-10.2); Globulin 2.7 g/dL (1.3-3.2); Glucose 94 mg/dl (74-100); Total Protein,Serum 6.9 g/dl (6.3-8.2)
[2023-10-21] MEDS: POTASSIUM CHLORIDE 10MEQ TABLET.ER 10 MEQ PO (18:14)
[2023-10-21 18:37] VITALS: BP 111/60; PULSE 84; RESP 18; TEMP 36.9; O2SAT 99
== END 2023-10-21 18:40 | disposition home or self-care (01) ==
PROVIDERS: Emergency Provider Nurse Practitioner Family; PCP Internal Medicine Adolescent Medicine
DX: U07.1 COVID-19 (principal); E86.0 Dehydration; R51.9 Headache, unspecified; R11.2 Nausea with vomiting, unspecified
CPT/HCPCS: 80053; 85025; 96360; 99212; 99214; G0463; J7030

== ENCOUNTER 2023-10-23 11:51 | Emergency (ER) | payer BC, SELFPAY ==
[2023-10-23 11:52] VITALS: BP 135/95; PULSE 88; RESP 18; TEMP 36.5; O2SAT 99; BMI 33.6
[2023-10-23 12:47] LABS: Microscopic, Urine URINE MICROSCOPIC (MICROSCOPIC)
[2023-10-23 12:48] LABS: Basophils # 0.1 K/mm3 (0-0.2); Basophils % 0.7 % (0.1-2.0); Eosinophils % 0.2 % (0.1-12.0); Hematocrit 43.9 % (37.0-47.0); Hemoglobin 13.8 g/dL (12.2-16.2); Lymphocytes # 1.9 K/mm3 (0.7-4.5); Lymphocytes % 16.6 % (10-50); Mean Corpuscular HGB Conc 31.6 g/dL (31.8-35.4); Mean Corpuscular Hemoglobin 29.9 pg (27.0-31.2); Mean Corpuscular Volume 94.8 fl (81-99); Mean Platelet Volume 8.2 fl (7.4-10.4); Monocytes # 0.4 K/mm3 (0.1-1.0); Monocytes % 3.7 % (1.7-9.3); Neutrophils # 8.8 K/mm3 (1.8-7.8); Neutrophils % 78.8 % (37.0-80.0); Platelet Count 498 K/mm3 (142-424); Red Blood Count 4.63 M/mm3 (4.20-5.40); Red Cell Distribution Width 13.5 % (11.5-17.5); White Blood Count 11.1 K/mm3 (4.8-10.8)
--- NOTE | 2023-10-23 12:48 | CT_ITS ---
FINAL REPORT TECHNIQUE: Thin section axial images were obtained from the lung bases to the pubic symphysis without IV contrast. Coronal reconstruction images were obtained from the axial data. Exam was performed using dose reduction technique. CLINICAL HISTORY: L flank pain COMPARISON: 09/17/2020 report only FINDINGS: There is moderate left hydronephrosis related to an obstructing 9 mm left UPJ stone. There are also bilateral nonobstructing renal stones. The gallbladder is present. The remaining unenhanced solid abdominal organs are unremarkable. There is no evidence of small bowel obstruction. The appendix is not visualized. There are no secondary findings of appendicitis. GI tract is without acute abnormality. There is no lymphadenopathy or ascites. Patient is status post hysterectomy. No acute osseous abnormality is identified. IMPRESSION: Obstructing 9 mm left UPJ stone. Bilateral, nonobstructing renal stones Reviewed, Interpreted and Dictated by Pilar Tompkins MD Transcribed by Keyanna Henson Authenticated and . [facility]
[2023-10-23 12:53] LABS: Appearance,Urine CLOUDY (Clear); Blood, Urine 3+ (Negative); Color,Urine BROWN (Yellow); Glucose,Urine (UA) Negative (Negative); Ketones,Urine TRACE (Negative); Leukocyte Esterase,Urine TRACE (Negative); Nitrate,Urine POSITIVE (Negative); Protein,Urine 2+ (Negative); Specific Gravity, Urine >= 1.030 (1.005-1.030); Urobilinogen,Urine 0.2 EU/dl (0.2)
[2023-10-23 12:56] LABS: Albumin Level 4.3 g/dl (3.5-5.0); Chloride 109 mmol/L (98-107); Potassium 3.1 mmoL/L (3.5-5.1); Sodium 142 mmol/L (136-145)
[2023-10-23] MEDS: ONDANSETRON 4MG/2ML VIAL 4 MG IV (12:56)
[2023-10-23] MEDS: KETOROLAC 30MG/ML VIAL 15 MG IV (12:56)
[2023-10-23] MEDS: HYDROMORPHONE 2MG/ML SYRINGE 0.5 MG IV (12:58)
[2023-10-23 12:59] LABS: Alanine Aminotransferase 50 U/L (12-78); Albumin/Globulin Ratio 1.6 (1.1-1.8); Alkaline Phosphatase 103 U/L (38-126); Anion Gap 8.1 mEq/L (5-15); Aspartate Amino Transferase 40 U/L (14-36); Bilirubin,Total 0.8 mg/dl (0.2-1.3); Blood Urea Nitrogen 17 mg/dl (7-17); Carbon Dioxide 28 mmol/L (22.0-30.0); Creatinine Clearance Estimated 78 mL/min (50-200); Estimated Glomerular Filt Rate 51 ml/min (>60); GFR (African American) 62 ML/MIN (>60); Globulin 2.7 g/dL (1.3-3.2)
[2023-10-23 13:00] LABS: Calcium 9.5 mg/dl (8.4-10.2); Glucose 99 mg/dl (74-100)
[2023-10-23] MEDS: ACETAMINOPHEN 500MG TAB 1000 MG PO (13:00)
[2023-10-23] MEDS: LACTATED RINGERS 1000ML 1,000 ML 999 ML IV (13:04)
[2023-10-23 13:05] LABS: Bilirubin,Urine 1+ (Negative)
[2023-10-23 13:08] LABS: RBC,Urine 50-100 #/hpf (0-3); WBC,Urine Occasional #/hpf (0-3)
[2023-10-23 13:09] LABS: Bacteria,Urine 2+ /lpf
--- NOTE | 2023-10-23 13:36 | HMH.EDGENADL ---
Discharge Plan Disposition Patient Disposition: Xfer Short-Term Hosp Condition: Good Chief Complaint: PAIN Prescriptions Prescriptions: No Action furosemide 40 mg tablet 40 mg PO DAILY levothyroxine [Synthroid] 50 mcg tablet 50 mcg PO DAILY Zepbound 5 mg/0.5 mL pen injector 5 mg SQ WEEKLY Patient Comments: inject THE contents of 1 pen (5 MG) SUBCUTANEOUSLY ONCE a WEEK azithromycin [Zithromax Z-Fidel] 250 mg tablet See Rx Instructions .ROUTE .COMPLEX 5 Days Qty: 6 0RF Rx Instructions: For 250 mg dose pack: take 500 mg today (day 1), then 250 mg for 4 days (days 2-5) promethazine-DM 6.25-15 mg/5 mL syrup 5 ml PO Q6H PRN (Reason: cough) Qty: 118 0RF doxycycline hyclate 100 mg capsule 100 mg PO Q12 10 Days Qty: 20 0RF omeprazole 40 mg capsule,delayed release(DR/EC) 40 mg PO DAILY Patient Comments: TAKE ONE CAPSULE BY MOUTH EVERY DAY Referrals Follow up/Referrals: Peewee Camargo MD [Primary Care Provider] - See instructions Clinical Impressions Clinical Impression: Ureteral obstruction, UTI (urinary tract infection), ARUTRO (acute kidney injury) Print Language Print Language: Jordanian Discharge ED Provider: Deb Linn General Adult HPI General Chief complaint: PAIN Stated complaint: Pain Lower L side abd and back Time Seen by Provider: 10/23/23 12:43 Mode of Arrival: Ambulatory Source of Information: Patient Limitations: No Limitations Description of Symptoms (Recalled from ER Triage Doc. by RN): Patient reports sharp 10/10 pain left lower flank pain that started around 0300am. History of Present Illness HPI narrative: This patient is a 58-year-old female with a history of kidney stones presenting to the emergency department for evaluation with concern for severe left flank pain that woke her up around 3:00 this morning. She is also had chills, nausea, and vomiting. No changes in bowel movements. Pain is severe and nothing seems make it better or worse. Related Data Home Medications ?Medication ?Instructions ?Recorded ?Confirmed omeprazole 40 mg capsule,delayed 40 mg PO DAILY 07/05/23 10/12/23 release furosemide 40 mg tablet 40 mg PO DAILY 10/12/23 10/12/23 levothyroxine 50 mcg tablet 50 mcg PO DAILY 10/12/23 10/12/23 (Synthroid) tirzepatide (weight loss) 5 mg/0.5 5 mg SQ WEEKLY 10/12/23 10/12/23 mL subcutaneous pen injector (Zepbound) Previous Rx's ?Medication ?Instructions ?Recorded azithromycin 250 mg tablet See Rx Instructions PO .COMPLEX 5 10/12/23 (Zithromax Z-Fidel) days #6 tabs promethazine-DM 6.25 mg-15 mg/5 mL 5 ml PO Q6H PRN cough #118 mL 10/12/23 oral syrup doxycycline hyclate 100 mg capsule 100 mg PO Q12 10 days #20 caps 10/15/23 Allergies Allergy/AdvReac Type Severity Reaction Status Date / Time morphine [MORPHINE] Allergy Unknown ITCHING Verified 10/04/23 13:11 Sulfa (Sulfonamide Allergy Unknown NA-NAUSEA/V Verified 10/04/23 13:11 Antibiotics) OMITING [SULFA (SULFONAMIDE ANTIBIOTICS)] [facility] Disclaimer: The information contained in this section may have been updated after the patient was seen, as this information can be updated by other users. Medical History Cystocele LATONIA (stress urinary incontinence, female) Urinary frequency Urinary urgency Rectocele History of skin cancer Left elbow fracture Kidney stone Surgical History History of foot surgery History of hernia repair History of bilateral breast reduction surgery History of tubal ligation History of hysterectomy Family History Other Anemia Asthma Cancer Diabetes Heart attack Hypertension Kidney disease Thyroid disorder Social History Smoking Status: Never smoker alcohol intake: never substance use type: denies use current occupational status: unemployed Travel in the last 8 weeks: None household members: spouse housing: house current occupational exposures/hazards: No caffeine: Yes ROS Obtained: Yes All systems reviewed & no additional complaints except as documented Physical Exam General General appearance: alert Comment: Very uncomfortable appearing Head Head exam: atraumatic and normocephalic Eye Eye exam: Present normal appearance, PERRL and EOMI ENT ENT exam: Present normal exam, normal oropharynx, mucous membranes moist and normal external ear exam Neck Neck exam: Present normal inspection, full ROM and trachea midline; Absent tenderness Chest Chest inspection: Present normal inspection and symmetric chest wall rise; Absent tenderness Respiratory Respiratory exam: Present normal lung sounds bilaterally; Absent respiratory distress, wheezes, stridor or accessory muscle use Cardiovascular Cardiovascular exam: Present regular rate and normal rhythm Abdominal Exam Abdominal exam: Present soft; Absent distention, tenderness or guarding Extremities Exam Extremities exam: Present normal inspection, full ROM and normal capillary refill; Absent tenderness or edema Back Exam Back exam: Present full ROM and CVA tenderness (L); Absent tenderness Neurological Exam Neurological exam: Present alert, oriented X3, CN II-XII intact and normal gait; Absent motor sensory deficit Psychiatric Psychiatric exam: Present normal affect and normal mood Skin Skin exam: Present warm and dry Medical Decision Making Medical Records Medical records reviewed: Yes I reviewed the patient's medical records. Tal Inquiry Pt receiving controlled substance: No Vital Signs: 10/23/23 11:52 10/23/23 14:14 Temperature 97.7 F Temperature Source Oral Pulse Rate 67 Pulse Rate [Right Brachial] 88 Respiratory Rate 18 18 Blood Pressure 140/64 Blood Pressure [Right Arm] 135/95 H Blood Pressure Mean [Right Arm] 108 02 Sat by Pulse Oximetry 99 97 Oxygen Delivery Method Room Air Room Air Lab Data Lab results reviewed: Yes I reviewed the patient's lab results. Lab Results 10/23/23 12:23: Urine Color Brown, Urine Appearance Cloudy, Urine pH 6.0, Ur Specific [place] >= 1.030, Urine Protein 2+ A, Urine Glucose (UA) Negative, Urine Ketones Trace, Urine Blood 3+ A, Urine Nitrate Positive, Urine Bilirubin 1+ A, Urine Urobilinogen 0.2, Ur Leukocyte Esterase Trace, Urine RBC 50-100, Urine WBC Occasional, Ur Squamous Epith Cells 3-5, Urine Bacteria 2+ 10/23/23 12:39: WBC 11.1 H D, RBC 4.63, Hgb 13.8, Hct 43.9, MCV 94.8, MCH 29.9, MCHC 31.6 L, RDW 13.5, Plt Count 498 H, MPV 8.2, Neut % (Auto) 78.8, Lymph % (Auto) 16.6, [place] % (Auto) 3.7, Eos % (Auto) 0.2, Baso % (Auto) 0.7, Neut # (Auto) 8.8 H, Lymph # (Auto) 1.9, [place] # (Auto) 0.4, Eos # (Auto) 0.0, Baso # (Auto) 0.1, Sodium 142, Potassium 3.1 L, Chloride 109 H, Carbon Dioxide 28, Anion Gap 8.1, BUN 17, Creatinine 1.10 H D, Estimated Creat Clear 78, Estimated GFR 51 L, Est GFR ( Amer) 62 D, Glucose 99, Calcium 9.5, Total Bilirubin 0.8, AST 40 H D, ALT 50, Alkaline Phosphatase 103, Total Protein 7.0, Albumin 4.3, Globulin 2.7, Albumin/Globulin Ratio 1.6 10/23/23 12:39 10/23/23 12:39 Orders (Tests/Meds): ED MEDICATIONS Generic Name Dose Route Start Last Admin Trade Name Freq PRN Reason Stop Dose Admin Sodium Chloride 1,000 mls @ 999 mls/hr 10/23/23 14:30 10/23/23 14:35 Sod Chlor 0.9% 1000ml Bag IV 10/23/23 15:30 999 mls/hr .Q1H1M SUPRIYA Administration Discontinued Medications Generic Name Dose Route Start Last Admin Trade Name Freq PRN Reason Stop Dose Admin Acetaminophen 1,000 mg 10/23/23 12:48 10/23/23 13:00 Acetaminophen 500mg Tab PO 10/23/23 12:49 1,000 mg ONCE ONE Administration Hydromorphone HCl 0.5 mg 10/23/23 12:48 10/23/23 12:58 Hydromorphone 2mg/Ml Syringe IV 10/23/23 12:49 0.5 mg ONCE ONE Administration Hydromorphone HCl 1 mg 10/23/23 14:31 10/23/23 15:08 Hydromorphone 2mg/Ml Syringe IV 10/23/23 14:32 1 mg ONCE ONE Administration Lactated Ringer's 1,000 mls @ 999 mls/hr 10/23/23 12:48 10/23/23 13:04 Lactated Ringer's 1000 Ml Bag IV 10/23/23 13:48 999 mls/hr .Q1H1M ONE Administration Potassium Chloride/Water 100 mls @ 100 mls/hr 10/23/23 13:08 Potassium Chloride 10meq/100ml Ivpb IV 10/23/23 14:07 ONCE ONE Lactated Ringer's 1,000 mls @ 999 mls/hr 10/23/23 13:12 10/23/23 14:29 Lactated Ringer's 1000 Ml Bag IV 10/23/23 14:12 Not Given .Q1H1M ONE Ceftriaxone Sodium 2 gm/ 100 mls @ 200 mls/hr 10/23/23 14:22 10/23/23 15:02 Sodium Chloride IV 10/23/23 14:51 200 mls/hr ONCE ONE Administration Ketorolac Tromethamine 15 mg 10/23/23 12:48 10/23/23 12:56 Ketorolac 30mg/Ml Vial IV 10/23/23 12:49 15 mg ONCE ONE Administration Ondansetron HCl 4 mg 10/23/23 12:48 10/23/23 12:56 Ondansetron 4mg/2ml Vial IV 10/23/23 12:49 4 mg ONCE ONE Administration Potassium Chloride 40 meq 10/23/23 13:08 10/23/23 14:29 Potassium Chloride 20meq Tab PO 10/23/23 13:09 40 meq ONCE ONE Administration Promethazine HCl 25 mg 10/23/23 13:19 10/23/23 14:29 Promethazine Hcl 25mg/Ml 1ml Vial IV 10/23/23 13:20 25 mg ONCE ONE Administration Sodium Chloride 25 ml 10/23/23 13:19 10/23/23 14:29 Sodium Chloride 0.9% 25ml Bag IV 10/23/23 13:20 25 ml ONCE ONE Administration ORDERS Category Date Time Status CT abdomen pelvis wo con Stat Cat Scan 10/23/23 12:48 Completed Complete Blood Count Auto Diff Stat Lab 10/23/23 12:39 Completed Comprehensive Metabolic Panel Stat Lab 10/23/23 12:39 Completed Urinalysis and Microscopic Stat Lab 10/23/23 12:23 Completed Urine Culture Stat Micro 10/23/23 12:23 Received Medical Decision Narrative: In summary, this patient is a 58-year-old female presenting to the Emergency Department for evaluation of left flank pain. Differential diagnoses considered include but are not limited to ureterolithiasis, pyelonephritis, cystitis, colitis. Ruling out the most morbid conditions drove assessment. On exam, the patient is very uncomfortable appearing. She has left CVA tenderness. workup included CBC, CMP, urinalysis, urine culture, CT abdomen pelvis without IV contrast. Patient was given bolus of IV fluids as well as IV Dilaudid, Zofran, and Toradol presented medic improvement. I independently interpreted CT scan prior to the radiologist read and noted obstructive 9 mm left ureteral stone. Please see their read for final interpretation. Labs were obtained that demonstrated ARTURO, mild leukocytosis, and urine is positive for nitrates. Patient is afebrile and nontachycardic or tachypneic.. On reassessment, patient had some improvement after administration of IV Toradol and Dilaudid, but then her pain recurred requiring another dose of IV Dilaudid.. Ultimately, I feel patient would benefit from emergent transfer for urologic evaluation given obstructive stone, ARTURO, and positive bacteria and nitrates in the urine. I called and had an interactive discussion with Dr. David with Urology at [facility] and with Dr. Guzman at [facility] who accepted the patient for transfer. She is given 2 L bolus of IV fluids as well as IV Rocephin prior to transfer. Urine culture was sent and is pending. Patient was transported in stable condition. Critical Care Critical Care Time Critical Care Time: No
[2023-10-23 14:14] VITALS: BP 140/64; PULSE 67; RESP 18; O2SAT 97
[2023-10-23] MEDS: SODIUM CHLORIDE 0.9% 25ML BAG 25 ML IV (14:29)
[2023-10-23] MEDS: PROMETHAZINE HCL 25MG/ML 1ML VIAL 25 MG IV (14:29)
[2023-10-23] MEDS: POTASSIUM CHLORIDE 20MEQ TAB 40 MEQ PO (14:29)
--- NOTE | 2023-10-23 14:33 | PC.NURSE ---
I talked to [facility]. Dr. David had already informed Dr. Linn that he would accept ER to ER. Waiting for call back from [facility].
[2023-10-23] MEDS: 0.9 % SODIUM CHLORIDE 1000ML 1,000 ML 999 ML IV (14:35)
[2023-10-23] MEDS: CEFTRIAXONE SODIUM 2 GM in 0.9 % SODIUM CHLORIDE 100 ML IV (15:02)
[2023-10-23] MEDS: HYDROMORPHONE 2MG/ML SYRINGE 1 MG IV (15:08)
[2023-10-23] MEDS: KCl 10mEq/100ml 100 ML 100 MEQ IV (15:16)
[2023-10-23 15:54] VITALS: BP 144/84; PULSE 68; RESP 15; TEMP 36.4; O2SAT 99
--- NOTE | 2023-10-23 16:05 | PC.NURSE ---
Patient being transferred to [facility] via POV. Potassium currently infusing. Per MD infuse 50ml of 100ml order then ok discharge pt.
== END 2023-10-23 16:17 | disposition short-term general hospital (02) ==
PROVIDERS: Emergency Provider Emergency Medicine; PCP Internal Medicine Adolescent Medicine
DX: N13.0 Hydronephrosis with ureteropelvic junction obstruction (principal); N20.0 Calculus of kidney; N39.0 Urinary tract infection, site not specified; B96.89 Other specified bacterial agents as the cause of diseases classified elsewhere; E87.6 Hypokalemia; N17.8 Other acute kidney failure; R10.32 Left lower quadrant pain
CPT/HCPCS: 74176; 80053; 81001; 85025; 87086; 96365; 96367; 96375; 96376; 99285; J0696; J1170; J1885; J2405; J2550; J3480; J7030; J7120

== ENCOUNTER 2023-11-29 13:17 | Outpatient (CLI) | payer BC, SELFPAY ==
[2023-11-29 14:32] LABS: Chloride 108 mmol/L (98-107); Sodium 139 mmol/L (136-145)
[2023-11-29 14:33] LABS: Potassium 4.3 mmoL/L (3.5-5.1)
[2023-11-29 14:36] LABS: Anion Gap 13.3 mEq/L (5-15); Blood Urea Nitrogen 17 mg/dl (7-17); Calcium 9.4 mg/dl (8.4-10.2); Carbon Dioxide 22 mmol/L (22.0-30.0); Estimated Glomerular Filt Rate 87 ml/min (>60); GFR (African American) 105 ML/MIN (>60); Glucose 89 mg/dl (74-100)
[2023-11-29 15:07] LABS: Thyroid Stimulating Hormone 0.95 uIU/mL (0.465-4.68)
[2023-11-29 19:07] LABS: Free T4 (Free Thyroxine) 1.46 ng/dl (0.78-2.19)
== END 2023-11-29 23:59 | disposition home or self-care (01) ==
PROVIDERS: PCP Internal Medicine Adolescent Medicine; Visit Provider Nurse Practitioner Family
DX: E03.9 Hypothyroidism, unspecified (principal)
CPT/HCPCS: 36415; 80048; 84439; 84443

== ENCOUNTER 2023-12-26 15:00 | Outpatient (POV) | payer BC, SELFPAY | END 2023-12-26 23:59 | disposition home or self-care (01) | LOC: SC 12-27 07:00 | PROVIDERS: Visit Provider Dermatology | DX: Z00.00 Encounter for general adult medical examination without abnormal findings (principal) ==

== ENCOUNTER 2024-02-01 17:14 | Emergency (ER) | payer BC, SELFPAY ==
[2024-02-01 17:57] VITALS: BP 0/0; PULSE 0; RESP 0; TEMP -17.7; TEMP 0
== END 2024-02-01 17:57 | disposition left against medical advice (07) ==
LOC: UTC 17:17
PROVIDERS: Emergency Provider Nurse Practitioner; PCP Internal Medicine Adolescent Medicine
DX: Z53.21 Procedure and treatment not carried out due to patient leaving prior to being seen by health care provider (principal)

== ENCOUNTER 2024-02-03 11:00 | Emergency (ER) | payer BC, SELFPAY ==
--- NOTE | 2024-02-03 12:27 | EXP.UTC ---
Discharge Plan Disposition Patient Disposition: Home, Self-Care Condition: Good Prescriptions Prescriptions: New azithromycin [Zithromax] 250 mg tablet 250 mg PO UD DOSE PK Qty: 6 0RF Rx Instructions: Take two (2) tablets today, then one (1) tablet days #2 thru #5 benzonatate 100 mg capsule 100 mg PO TIDP PRN (Reason: Cough) Qty: 30 0RF oseltamivir [Tamiflu] 75 mg capsule 75 mg PO BID 5 Days Qty: 10 0RF No Action levothyroxine [Synthroid] 50 mcg tablet 50 mcg PO DAILY Zepbound 5 mg/0.5 mL pen injector 5 mg SQ WEEKLY Patient Comments: inject THE contents of 1 pen (5 MG) SUBCUTANEOUSLY ONCE a WEEK omeprazole 40 mg capsule,delayed release(DR/EC) 40 mg PO DAILY Patient Comments: TAKE ONE CAPSULE BY MOUTH EVERY DAY Referrals Follow up/Referrals: Peewee Camargo MD [Primary Care Provider] - See instructions Activity Restrictions/Add. Instructions Additional Instructions/Restrictions: Drink plenty of fluids. Take tylenol or ibuprofen for pain or fever. Take the medications as directed. Follow up with your regular doctor. GO TO THE ER FOR ANY WORSENING SYMPTOMS Clinical Impressions Clinical Impression: Influenza A, Pharyngitis Instructions Patient Instructions: Influenza, DI for Pharyngitis/Tonsillopharyngitis -- Adult, DI for Influenza -- Adult, Dexamethasone Injection Print Language Print Language: Cameroonian Discharge ED Provider: Theo Boyd [facility] [place] General Stated complaint: solre throat, body aches, fever, V/D Time Seen by Provider: 02/03/24 12:27 Related Data Home Medications ?Medication ?Instructions ?Recorded ?Confirmed omeprazole 40 mg capsule,delayed 40 mg PO DAILY 07/05/23 02/03/24 release levothyroxine 50 mcg tablet 50 mcg PO DAILY 10/12/23 02/03/24 (Synthroid) tirzepatide (weight loss) 5 mg/0.5 5 mg SQ WEEKLY 10/12/23 10/12/23 mL subcutaneous pen injector (Zepbound) Previous Rx's ?Medication ?Instructions ?Recorded azithromycin 250 mg tablet 250 mg PO UD DOSE PK #6 tabs 02/03/24 (Zithromax) benzonatate 100 mg capsule 100 mg PO TIDP PRN Cough #30 caps 02/03/24 oseltamivir 75 mg capsule (Tamiflu) 75 mg PO BID 5 days #10 caps 02/03/24 Allergies Allergy/AdvReac Type Severity Reaction Status Date / Time morphine (MORPHINE) Allergy Unknown ITCHING Verified 10/04/23 13:11 Sulfa (Sulfonamide Allergy Unknown NA-NAUSEA/V Verified 10/04/23 13:11 Antibiotics) (SULFA OMITING (SULFONAMIDE ANTIBIOTICS)) [facility] Disclaimer: The information contained in this section may have been updated after the patient was seen, as this information can be updated by other users. Medical History Cystocele LATONIA (stress urinary incontinence, female) Urinary frequency Urinary urgency Rectocele History of skin cancer Left elbow fracture Kidney stone Surgical History History of foot surgery History of hernia repair History of bilateral breast reduction surgery History of tubal ligation History of hysterectomy Family History Other Anemia Asthma Cancer Diabetes Heart attack Hypertension Kidney disease Thyroid disorder Social History Smoking Status: Never smoker alcohol intake: never substance use type: denies use current occupational status: unemployed Travel in the last 8 weeks: None household members: spouse housing: house current occupational exposures/hazards: No caffeine: Yes Have you lived/traveled outside US in past 30 days?: No Contact w/someone who lives/traveled outside US past 30 days?: No Exposure to someone with infectious disease in past 14 days?: No Do you have a fever (greater than 100.4 F or 38 C)?: Yes Have you tested positive for COVID-19: No Exposed to someone with COVID-19 in past 14 days?: No Do you have a sore throat?: Yes Do you have a cough?: No Do you have any weakness?: No Do you have any diarrhea?: Yes Are you experiencing any unusual bleeding?: No Do you have any muscle aches/pain?: Yes Do you have any abdominal pain?: No Are you experiencing loss of taste or smell?: No ROS Obtained: Yes All systems reviewed & no additional complaints except as documented Constitutional Constitutional: Reports chills and Reports fever(s) Eyes Eyes: Denies eye discharge ENT Ears, Nose, Mouth, and Throat: Reports as per HPI Cardiovascular Cardiovascular: Denies chest pain Respiratory Respiratory: Denies chest congestion and Reports cough Gastrointestinal Gastrointestingal: Reports nausea; Denies abdominal pain, constipation, cramping, diarrhea or vomiting Musculoskeletal Musculoskeletal: Denies arthralgias Integumentary/Breasts Skin/Breast: Denies rash Neurologic Neurologic: Denies paresthesias Physical Exam General General appearance: alert and in no apparent distress Head Head exam: atraumatic, normocephalic and normal inspection Eye Eye exam: Present normal appearance, PERRL and EOMI ENT ENT exam: Present mucous membranes moist and normal external ear exam Expanded ENT Exam TM/Canal exam: Bilateral TM: erythema and bulging Nose exam: Absent sinus tenderness Mouth exam: Present normal external inspection; Absent drooling Teeth exam: Present normal inspection Throat exam: Present tonsillar erythema, tonsillomegaly and tonsillar exudate Neck Neck exam: Present normal inspection, full ROM and trachea midline; Absent tenderness, meningismus or lymphadenopathy Chest Chest inspection: Present normal inspection and symmetric chest wall rise; Absent tenderness Respiratory Respiratory exam: Present normal lung sounds bilaterally; Absent respiratory distress, wheezes, stridor or accessory muscle use Cardiovascular Cardiovascular exam: Present regular rate and normal rhythm; Absent systolic murmur or diastolic murmur Abdominal Exam Abdominal exam: Present soft and normal bowel sounds; Absent distention, tenderness, guarding, rebound or rigidity Extremities Exam Extremities exam: Present normal inspection and normal capillary refill; Absent calf tenderness Back Exam Back exam: Present normal inspection and full ROM; Absent tenderness, CVA tenderness (R) or CVA tenderness (L) Neurological Exam Neurological exam: Present alert, oriented X3 and CN II-XII intact Psychiatric Psychiatric exam: Present normal affect and normal mood Skin Skin exam: Present warm, dry, intact and normal color Medical Decision Making Medical Records Medical records reviewed: No I reviewed the patient's medical records. Screening: Per USPSTF and CDC recommendations, given the prevalence of disease in our region, it is our hospital?s policy to screen for HIV and viral Hepatitis for all patients aged 18 and over and those with ongoing risk factors. Tal Inquiry Pt receiving controlled substance: No
[2024-02-03 12:37] VITALS: BP 119/76; PULSE 124; RESP 18; TEMP 37.7; O2SAT 96; BMI 23.8
[2024-02-03 12:46] LABS: UTC Strep Screen (Rapid) Negative (Negative)
[2024-02-03 12:47] LABS: UTC Influenza A Antigen Positive (Negative); UTC Influenza B Antigen Negative (Negative)
[2024-02-03] MEDS: DEXAMETHASONE 4MG/ML 1ML VIAL 8 MG IM (12:51)
[2024-02-03 13:28] VITALS: BP 119/76; PULSE 124; RESP 18; TEMP 37.7
== END 2024-02-03 13:30 | disposition home or self-care (01) ==
PROVIDERS: Emergency Provider Nurse Practitioner Family; PCP Internal Medicine Adolescent Medicine
DX: J09.X2 Influenza due to identified novel influenza A virus with other respiratory manifestations (principal)
CPT/HCPCS: 87804; 87880; 96372; 99213; G0381; J1100

== ENCOUNTER 2024-02-21 13:26 | Outpatient (CLI) | payer BC, SELFPAY ==
--- NOTE | 2024-02-21 13:30 | MM_ITS ---
PROCEDURE INFORMATION: Exam: MG Bilateral Screening 3D Mammography Exam date and time: 02/21/2024 1:14 PM Age: 58 years old Clinical indication: Screening examination TECHNIQUE: Imaging protocol: Bilateral Screening tomosynthesis and 2D mammography including computer-aided detection (CAD) when performed. COMPARISON: 1. MG MM DIG SCREENING MAMM BI W/CAD 02/16/2023 9:49 AM 2. MG MM DIG SCREENING MAMM BI W/CAD 01/24/2022 12:52 PM FINDINGS: MAMMOGRAPHY: Breast composition: There are scattered areas of fibroglandular density. Mass: No suspicious masses. Architectural distortion: None. Calcifications: No suspicious calcifications. Asymmetric density: None. Skin thickening: None. Axillary adenopathy: None. IMPRESSION: No mammographic evidence of malignancy. Annual screening is recommended unless otherwise clinically indicated. ASSESSMENT: BI-RADS Category 1: Negative.
== END 2024-02-21 23:59 | disposition home or self-care (01) ==
LOC: RAD 13:27
PROVIDERS: PCP Internal Medicine Adolescent Medicine; Visit Provider Internal Medicine Adolescent Medicine
DX: Z12.31 Encounter for screening mammogram for malignant neoplasm of breast (principal)
CPT/HCPCS: 77063; 77067

== ENCOUNTER 2024-08-26 23:57 | Outpatient (CLI) | payer BC, SELFPAY ==
--- OUTSIDE RECORDS SUMMARY | 2024-08-26 23:59 | XMS_ITS | Encounter Summary ---
Author Organization Healthcare Address [address] [place] [address] Care Team Providers Care Resident Director Name Role Phone Peewee Camargo MD Primary Care Provider [phone] Encounter Details Date Type Department Care Team (Late st Contact Info) Description 07/11/2023 Community [facility] [address] [place] [address] Megan Velasquez, CELLULAR BIOLOGIST [address] [place] [id number] Social History Tobacco Use Types Packs/Day Years Used Date Smoking Tobacco: Never Assessed Comments Unknown Sex and Gender Information Value Date Recorded Sex Assigned at Not on file Legal Sex Female 7:42 PM EDT Gender Identity Not on file Sexual Orientation Not on file documented as of this encounter Plan of Treatment Not on file documented as of this encounter Visit Diagnoses Not on filedocumented in this encounter Care Teams Resident Director Relationship Specialty Start Date End Date Peewee Camargo MD [address] [place] [address] PCP - General 06/19/20 documented as of this encounter
--- OUTSIDE RECORDS SUMMARY | 2024-08-26 23:59 | XMS_ITS | Clinical Summary ---
Author Organization [facility] Address [address] [place] [phone] Phone Care Team Providers Care Television Cabinet Finisher Name Role Phone Unavailable Primary Care Provider Unavailabl e Allergies Active Allergy Reactions Criticality Noted Date Comments Morphine Hcl Other (See Comments) 08/16/2022 Sulfa (Sulfonamide Antibiotics) Other (See Comments) 08/16/2022 Medications omeprazole (PRILOSEC) 40 mg Oral Capsule, Delayed Release(E.C.) Take 40 mg by mouth daily. Active mirabegron (MYRBETRIQ) 25 mg Oral Tablet Sustained Release 24 hrIndications:OA B (overactive bladder) Take 1 Tablet by mouth daily. 30 Tablet 11 08/16/2022 Active Active Problems Problem Noted Date Diagnosed Date OAB (overactive bladder) 08/16/2022 Mixed incontinence 08/16/2022 Rectocele 08/16/2022 Constipation 08/16/2022 Social History Tobacco Use Types Packs/Day Years Used Date Smoking Tobacco: Never Smokeless Tobacco: Never Comments Unknown Sex and Gender Information Value Date Recorded Sex Assigned at Not on file Legal Sex Female 3:28 PM EDT Gender Identity Not on file Sexual Orientation Not on file Obstetrics History Para Term AB IAB SAB Ectopic Multiple Livin g Live Births 2 2 2 Date Outcome GA Total Labor Labor/2nd/3rd Weight Sex Type Anes PTL Gia A1 A5 Name Clin Para Para Last Filed Vital Signs Vital Sign Reading Time Taken Comments Blood Pressure 126/74 08/16/2022 10:44 AM EDT Pulse 65 08/16/2022 10:44 AM EDT Temperature - - Respiratory Rate - - Oxygen Saturation 98% 08/16/2022 10:44 AM EDT Inhaled Oxygen Concentration - - Weight 98.1 kg (216 lb 3.2 oz) 08/16/2022 10:44 AM EDT Height - - Body Mass Index - - Plan of Treatment Health Maintenance Due Date Last Done Comments Annual Wellness Exam 1970 Hepatitis B Vaccine (1 of 3 - 19+ 3-dose series) 1986 Cervical Cancer Screening 1988 Pap Smear 1988 HPV/Pap Cotest 1997 DTaP/TDaP/Td (1 - Tdap) 07/29/1998 07/28/1998 Breast Cancer Screening 2007 Cologuard 2012 Colon Cancer Screening 2012 Colonoscopy 2012 FIT 2012 Sigmoidoscopy 2012 Virtual Colonography 2012 Pneumococcal Vaccine 50+ (1 of 1 - PCV) 2017 Zoster (1 of 2) 2017 COVID-19 Vaccine (3 - 2023-2 5 season) 2023 11/17/2020, 10/23/2020 Influenza Vaccine (#1) 2024 Meningococcal B Vaccine Aged Out No l onger eligible based on patient's age to complete this topic [place] [place] [id number] [address]
--- OUTSIDE RECORDS SUMMARY | 2024-08-26 23:59 | XMS_ITS | Clinical Summary ---
Author Organization [facility] Address [address] [place] [address] Care Team Providers Care Oil Field Pumper Name Role Phone Peewee Camargo MD Primary Care Provider [phone] Social History Tobacco Use Types Packs/Day Years Used Date Smoking Tobacco: Never Assessed Comments Unknown Sex and Gender Information Value Date Recorded Sex Assigned at Not on file Legal Sex Female 7:42 PM EDT Gender Identity Not on file Sexual Orientation Not on file Plan of Treatment Not on file Care Teams Oil Field Pumper Relationship Specialty Start Date End Date Peewee Camargo MD [address] TREVON Bob PCP - General 06/19/20
--- OUTSIDE RECORDS SUMMARY | 2024-08-26 23:59 | XMS_ITS | Data Portability ---
Author Organization MD - [facility] [place] [facility] Address [address] [place] [id number] Care Team Providers Care Hairspring Staker Name Role Phone HONORIO BABIN Primary Care Provider [phone] Assessment No assessment recorded. Plan of Treatment Reminders Order Date Submit Date Provider Last Modified By Organization Details Last Modified Time Details Appointments None recorded. Lab None recorded. Referral None recorded. Procedures None recorded. Surgeries ureteroscop y with stone basket extraction, holmium laser fragmentati on (SURG) 2023 024 [email or web address] Not available 15:52:37 Imaging US, renal 2023 024 [email or web address] [facility] [address] [place], [address], 5 11:33:01 XR, kidney + ureter + bladder 2023 025 [email or web address] [facility] [address] [place], [address], 5 11:32:55 Medication Orders oxybutynin chloride ER 10 mg tablet,exte nded release 24 hr 2023 024 [facility], [address] [place] [address] [address] [address], Lisbeth TREVON, [id number], 4 16:31:29 Patient TargetsNo targets recorded. Patient InstructionsNo instructions recorded. Reason for Referral None Reported. Results Created Date Observation Date Name Description Value Unit Range Abnormal Flag Note LastModifiedBy Organization Detail LastModifiedTime 11/03/1911/13/2023 CALCU BRIDGETT UR ([facility] E [facility] SIS) source Kidney Not Available [facility]) [address], [place], [address], 11/13/2023 11:12:46 11/03/19 24 11/13/2023 CALCU BRIDGETT UR (ST[facility] E [facility]Y SIS) color Brown Not Available [facility]) [address] [facility], [place], [address], 11/13/2023 11:12:46 11/03/19 24 11/13/2023 CALCU BRIDGETT UR (STON E COY SIS) size 5x4 mm Multi ple piece s recei gauri. Dimen sions of the large st piece repor say. Not Available [facility]) [address] [facility], [place], [address], 11/13/2023 11:12:46 11/03/19 24 11/13/2023 CALCU BRIDGETT UR (ST[facility] E [facility]Y SIS) weight 169 mg Not Available [facility] [address] [facility], [place], [address], 11/13/2023 11:12:46 11/03/19 24 11/13/2023 CALCU BRIDGETT UR (STON E COY SIS) composition Commen t . Perce ntage (Repr esent s the % compo sitio n) Not Available [facility]) [address] [facility], [place], [address], 11/13/2023 11:12:46 11/03/19 24 11/13/2023 CALCU BRIDGETT UR (STON E COY SIS) Ca oxalate monohydrate 100 % Not Available [facility] ([facility]) [address] [facility], [place], [address], 11/13/2023 11:12:46 11/03/19 24 11/13/2023 CALCU LI, UR (STON E COY SIS) comment Larry Akbar Calcu amparo recei gauri wet. Wet calcu li must be dried befor e coy sis, which delay s repor ting of resul ts. Lorena ng calcu li wet (such as water , salin e, blood , urine ) may lead to sandoval es in compo sitio n. Not Available [facility]) [address] [facility], [place], [address], 11/13/2023 11:12:46 11/03/19 24 11/13/2023 CALCU LI, UR (STON E COY SIS) comment: Larry Akbar Physi laura quest ions regar ding Calcu li Coy sis conta ct [facility] at: [phone]. Not Available [facility]) [address] [facility], [place], [address], 11/13/2023 11:12:46 11/03/19 24 11/13/2023 CALCU LI, UR (STON E COY SIS) please note: Larry Akbar Calcu li repor t will follo w via compu ter, mail or couri chana kwong. Not Available [facility] [address] [facility], [place], [address], 11/13/2023 11:12:46 11/03/19 24 11/13/2023 CALCU LI, UR (STON E COY SIS) photo Larry gordillo . Photo graph will follo w under a separ ate cover Not Available [facility] [address] [facility], [place], [address], 11/13/2023 11:12:46 11/03/19 24 11/13/2023 CALCU LI, UR (STON E COY SIS) pdf image . Perfo rmed at: [facility] - [facility] Itasc a [address] [place], [place] [id number] Lab Direc tor: Abraham brooke PhD, Phone : [phone] Not Available [facility]) [address] [facility], [place], [address], 11/13/2023 11:12:46 11/03/19 24 11/13/2023 KAUSHIK LEACH (STON E COY SIS) disclaimer: Commen t . This test was devel oped and its perfo rmanc e shonna cteri stics deter mined by [facility]. It has not been clear ed or appro gauri by the Food and Drug Admin istra tion. Not Available [facility] [address] [facility], [place], [address], 11/13/2023 11:12:46 10/31/19 24 10/23/2023 fluor o less than 1 HR [facility] [address] [place] [address] Phone: Fax: Name: JOMAR PENG Exam Date: : [birth year] Age 58 years Gender : F Access ion: [id number] 00 [id number] Physic tyler: JHON LAKHANI Facili ty: [facility] Facili ty HSV: Outpat ient Exam: FLUORO LESS THAN 1 HR EXAM DESCRI PTION: FLUORO LESS THAN 1 HR CLINIC AL HISTOR Y: 58 years Female , stent placem ent COMPAR MELCHOR: None. FINDIN GS: 3 spot views from retrog rade pyelog dani demons trates a left ureter al stent placed with mild left hydron ephros is. Total fluoro scopy time is 5.7 second s. Electr onical ly signed by:Orville Calzada MD10/08 01:04 PM EDT RP Workst ation: [id number] Dictat ed By: Rosibel Calzada Transc ribed By: Transc ribed On: 11:17 AM Electr onical ly signed by: Rosibel Calzada [facility] Legall y authen ticate d by DAVON Valero 10-24 11:17: 08 CC'ed Logic: Orderi ng Provid er: ART JHON [email or web address] [facility] [address] [facility], [place], [address], 10/31/2023 15:20:31 11/06/19 24 11/03/2023 fluor o less than 1 HR [facility] [address] [place] [address] Phone: Fax: Name: JOMAR PENG Exam Date: : [birth year] Age 58 years Gender : F Access ion: [id number] Physic tyler: JHON LAKHANI Facili ty: [facility] Facili ty HSV: Outpat ient Exam: FLUORO LESS THAN 1 HR Fluoro scopy was provid ed for line placem ent Clinic al indica tion: Line place ent 10 images were obtain ed intrao perati vely Dose area produc t: 2150 mGycm2 Electr onical ly signed by:Bessie Freeman MD10/09 02:12 PM EDT RP Workst ation: [id number] Dictat ed By: Bambi Freeman Transc ribed By: Transc ribed On: 8:49 AM Electr onical ly signed by: Bambi Freeman Thank you [facility]err [facility] Legall y authen tickeely d by LIZETTE Valero 11-02 08:49: 30 CC'ed Logic: Orderi ng Provid er: ART JHON Attend ing Provid er: ART JHON Referr ing Provid er: ART JHON Admitt ing Provid er: ART JHON [email or web address] [facility] [address] [facility], [place], [address], 11/06/2023 14:20:42 01/01/20 24 01/01/2024 renal ,bila teral US [facility] [address] [place] [address] Phone: Fax: Name: JOMAR PENG Exam Date: 2023 : [birth year] Age 58 years Gender : F Access ion: [id number] 00 [id number] Physic tyler: JHON LAKHANI Facili ty: [facility] Facili ty HSV: Outpat ient Exam: RENAL, BILATE RAL US Renal ultras ound. INDICA TION: Kidney stone. COMPAR MELCHOR: None. TECHNI QUE: Images from real-t sully and color Dopple r evalua tion kidney s. FINDIN GS: Right kidney measur es 10.2 x 4.2 x 4.4 cm with normal appear ance and 1.2 cm cortic al thickn ess. The left kidney measur es 10.0 x 4.8 x 4.0 cm. Cortex measur es 1.4 cm. A 4 x 4 mm left lower pole parape lvic nonobs tructi ng stone presen t. IMPRES JONATAN: 4 mm left lower pole nonobs tructi ng renal stone. Otherw ise normal kidney s. Electr onical ly signed by:Joyce zaragoza MD12/08 04:52 PM EST RP Workst ation: [id number] Dictat ed By: Rabia Powell Transc ribed By: Transc ribed On: 2023 4:11 PM Electr onical ly signed by: Rabia Powell 2023 Thank you for [facility]err [facility]ad [facility] Legall y authen ticate d by WILLIE AGUILAR 2023-02 16:11: 40 CC'ed Logic: Orderi ng Provid er: ART JHON Attend ing Provid er: ART JHON Referr ing Provid er: KAR FERREIRA Admitt ing Provid er: KAR FERREIRA [email or web address] [facility] [address] , [place], [address], 01/08/2024 08:44:05 Result Notes None recorded. Problems Name Problem SNOMED Code Status Onset Date Resolution Date Notes Provider Name and Address Organization Details Recorded Time Ureteric stone 81284916 Active 024 JHON LAKHANI MD [address], [place], [address] , [place] - [facility] & [place] 14:02:37 Acute urinary tract infection 674263734 Active 024 JHON LAKHANI MD [address], [place], [address] , [place] - [facility] - [place] [facility] [place] 14:02:43 Increased frequency of urination 444179823 Active 024 JHON LAKHANI MD [address] , [place], [address] , [place] - [facility] & [place] 16:18:49 Problem Notes None recorded. Procedures Surgical History Date Name Laterality Status Provider Name and Address Organization Details Recorded Time 11/07/19 Cystoscopy-Femal e completed JHON LAKHANI MD [address] , [place], [address], [place] - [facility] - [place] [facility] [place] 11/07/2023 16:18:34 Elbow arthroscopy/surg varghese completed [facility] Louise Master [place] - [facility] & [place] 10/31/2023 13:56:47 procedure on foot completed Zahira Louise [place] - [facility] & [place] 10/31/2023 13:57:01 Total Hysterectomy completed [facility] Louise Master [place] - [facility] & [place] 10/31/2023 13:57:17 Imaging Results None recorded. Procedure Notes None recorded. Medical Equipment None Reported. Allergies Allergen ID Allergen Name Allergen Category Reaction Reaction Severity Criticality Documentation Date Start Date Code Code System Note Provider Name and Address Organization Details Recorded Time 930887 morphine medicatio n Not available Not available Not available 10/25/2023 7052 RxNorm Mansi Maurer NP, [address] , [place], [address], [facility] & [place] 4 11:44:33 798422 Substance with sulfonami de structure and antibacte rial mechanism of action (substanc e) medicatio n Not available Not available Not available 10/25/2023 74717 8003 SNOMED Crystal SAM Maurer, [address], [place], [address], [facility] & [place] 4 11:44:45 Medications Name Sig Start Date Stop Date Status Note LastModified by Organization Details LastModified Time cyclobenzap rine 10 mg tablet TAKE ONE TABLET BY MOUTH THREE TIMES DAILY NEEDED FOR MUSCLE SPASMS MAY CAUSE DROWSINES S 10/30 completed Not Available Not Available Not Available amoxicillin 500 mg capsule TAKE ONE CAPSULE BY MOUTH THREE TIMES DAILY FOR 7 DAYS -- FINISH ALL MEDICINE -- 10/30 completed Not Available Not Available Not Available furosemide 40 mg tablet active Not Available Not Available Not Available methocarbam ol 500 mg tablet TAKE 1 OR 2 TABLET(S) BY MOUTH THREE TIMES DAILY NEEDED FOR MUSCLE SPASMS 10/30 completed Not Available Not Available Not Available promethazin e-DM 6.25 mg-15 mg/5 mL oral syrup TAKE 1 TEASPOONF UL (5 ML) BY MOUTH EVERY 6 HOURS NEEDED FOR cough 10/30 completed Not Available Not Available Not Available doxycycline hyclate 100 mg capsule TAKE 1 CAPSULE BY MOUTH EVERY 12 HOURS 10/30 completed Not Available Not Available Not Available cetirizine 10 mg tablet TAKE ONE TABLET BY MOUTH EVERY DAY 10/30 completed Not Available Not Available Not Available oxybutynin chloride ER 10 mg tablet,exte nded release 24 hr TAKE ONE TABLET BY MOUTH EVERY DAY active Not Available Not Available No t Available azithromyci n 250 mg tablet TAKE 2 TABLETS BY MOUTH ON DAY 1, THEN TAKE 1 TABLET DAILY ON DAYS 2-5 10/30 completed Not Available Not Available Not Available omeprazole 40 mg capsule,del ayed release TAKE ONE CAPSULE BY MOUTH EVERY DAY active Not Available Not Available No t Available tramadol 50 mg tablet TAKE ONE TABLET BY MOUTH EVERY 6 HOURS NEEDED FOR MODERATE PAIN (4-6 pain scale) active Not Available Not Available No t Available amoxicillin 875 mg tablet TAKE ONE TABLET BY MOUTH EVERY TWELVE HOURS -- FINISH ALL MEDICINE -- 10/30 completed Not Available Not Available Not Available benzonatate 100 mg capsule TAKE ONE CAPSULE BY MOUTH THREE TIMES DAILY NEEDED FOR COUGH 10/30 completed Not Available Not Available Not Available cephalexin 500 mg capsule TAKE ONE CAPSULE BY MOUTH FOUR TIMES DAILY -- FINISH ALL MEDICINE -- 10/30 completed Not Available Not Available Not Available Synthroid 50 mcg tablet TAKE ONE TABLET BY MOUTH EVERY DAY active Not Available Not Available No t Available diclofenac sodium 75 mg tablet,sergio yed release TAKE ONE TABLET BY MOUTH TWICE DAILY --TAKE WITH FOOD-- 10/30 completed Not Available Not Available Not Available methylpredn isolone 4 mg tablets in a dose pack TAKE ACCORDING TO PACKAGE INSTRUCTI ONS --TAKE WITH FOOD-- -- FINISH ALL MEDICINE -- 10/30 completed Not Available Not Available Not Available oxybutynin chloride 5 mg tablet TAKE ONE TABLET BY MOUTH THREE TIMES DAILY 10/30 completed Not Available Not Available Not Available cefdinir 300 mg capsule TAKE ONE CAPSULE BY MOUTH TWICE DAILY FOR 3 DAYS -- FINISH ALL MEDICINE -- active Not Available Not Available No t Available fluticasone propionate 50 mcg/actuati on nasal spray,suspe nsion INSTILL 2 SPRAYS IN EACH NOSTRIL EVERY DAY 10/30 completed Not Available Not Available Not Available sodium,pota ssium,mag sulfates 17.5 gram-3.13 gram-1.6 gram oral soln dilute AND USE DIRECTED; drink full AMOUNT early evening BEFORE AND NEXT morning AT least 2 hours BEFORE procedure ; follow with 32 ounces of water 10/30 completed Not Available Not Available Not Available Zepbound 5 mg/0.5 mL subcutaneou s pen injector inject THE contents of 1 pen (5 MG) SUBCUTANE OUSLY ONCE a WEEK active Not Available Not Available No t Available Zepbound 2.5 mg/0.5 mL subcutaneou s pen injector INJECT 2.5 MG (0.5 ML) SUBCUTANE OUSLY ONCE A WEEK 10/30 completed Not Available Not Available Not Available Zepbound 7.5 mg/0.5 mL subcutaneou s pen injector active Not Available Not Available Not Available Vitals Date Recorded Body height Body mass index (BMI) Body weight Oxygen saturation Oxygen saturation in Arterial blood by Pulse oximetry Heart rate Systolic And Diastolic Provider Name and Address Organization Details Last Updated DateTime 160.02 cm 35.8 kg/m2 35576.6 6 g 97 % 97 % 78 /min 137/97 mm[Hg] Zahira Thao [facility] & [place] 13:49:39 Date Recorded Body height Body mass index (BMI) Body weight Provider Name and Address Organization Details Last Updated DateTime 11/07/2023 160.02 cm 35.9 kg/m2 29242.1 g Evita Dan [facility] [place] 11/07/2023 16:02:44 Social History None recorded. Functional Status Question Answer Note LastModified by Organizat ion Details LastModified Time Do you use any illicit or recreational drugs? No [email or web address] Information not available 10/31/2023 Mental Status None recorded. Family History Nothing Reported. Medical History No medical history recorded. Gynecological HistoryNo gynecological history recorded. Obstetrics History GPAL:G 0 P 0 0 0 0 Past Encounters Encounter ID Performer Location Encounter Start Date Encounter Closed Date Diagnosis/Indication Diagnosis SNOMED-CT Code Diagnosis ICD10 Code Diagnosis Note [id number] JHON LAKHANI MD [facility] [place] [address] 10/31/2023 13:02:27 10/31/2023 14:01:36 Ureteric stone 83925184 N20.1 I reviewed the procedure in depth with the patient today including the risks of surgery. These included, but are not limited to: Bleeding, infection, injury to the tract, inability to reach the stone, and the potential for the necessity of staged procedures . I explained the temporary nature of the stent. Failure to exchange or remove the stent when indicated could lead to infection, urosepsis, stent encrustati on, kidney injury, loss of kidney, and even . Acute urin melvi tract infection 370851927 N39.0 Patient has completed antibiotic course. [id number] JHON LAKHANI MD [facility]-1 [address] [place] [address] 11/07/2023 15:28:21 11/07/2023 16:20:14 Ureteric stone 43094223 N20.1 Stent removed today without difficulty . We will plan for renal ultrasound in 6 weeks with KUB and follow up in 6 months. Increased frequency of urination 490974183 R35.0 We will start oxybutynin XL 10 mg daily. Side effect profile of the medication including dry mouth and constipati on were reviewed. Health Concerns Section Related Observation LastModified by Organization Detai ls LastModified Time None Recorded Concern Status LastModified by Organization Details LastModified Time None Recorded Advance Directives Directive None Recorded Payers Insurance Date Sequence Insurance Name Policy Number Policy Garner Covered Member ID Garner Member ID Guarantor Name 11/07/2023 1 [employer] ([employer]) [id number] Osvaldo Peng [id number] Jomar Peng 10/30/2023 1 [employer] (PP[employer]) Osvaldo Peng [id number] Jomar Peng Notes Date Note Type Note Provider Name and Address Organization Details Recorded Time 10/31/2023 text/html 10/31/23 58-year-old female who was transferred from [facility] on 10/23/2023 for an obstructing 9 mm LEFT ureteral stone with UTI. She was taken to the OR at that time and a left ureteral stent was placed. She returns to clinic today for follow up. After requesting records from [facility], it appears that a urine culture was not obtained at her initial presentation there. She has had some ongoing dysuria and frequency but notes oxybutynin helped. She completed her antibiotic course that she was discharged home from the hospital on yesterday. She denies any fevers. JHON LAKHANI MD [address], [place], [address], [facility] & [place] 11/14/2023 09:36:13 11/07/2023 text/html 11/07/23 58-year-old female who returns for follow up after undergoing left ureteroscopy the laser lithotripsy and stent placement on 11/03/2023. She is done well since surgery. She does have ongoing complaints of urinary frequency and urgency that were present prior to surgery. She was requesting treatment for these symptoms.--------- 10/31/23 58-year-old female who was transferred from [facility] on 10/23/2023 for an obstructing 9 mm LEFT ureteral stone with UTI. She was taken to the OR at that time and a left ureteral stent was placed. She returns to clinic today for follow up. After requesting records from [facility], it appears that a urine culture was not obtained at her initial presentation there. She has had some ongoing dysuria and frequency but notes oxybutynin helped. She completed her antibiotic course that she was discharged home from the hospital on yesterday. She denies any fevers. JHON LAKHANI MD [address] [facility], [place], [address], [facility] - [place] - [place] & [place] 11/07/2023 16:21:26 OBGyn Episode No OBEpisode recorded.
== END 2024-08-26 23:59 | disposition home or self-care (01) ==
LOC: LAB.DROPOF 23:57
PROVIDERS: PCP Internal Medicine Adolescent Medicine; Visit Provider Student in an Organized Health Care Education/Training Program
DX: R39.9 Unspecified symptoms and signs involving the genitourinary system (principal)
CPT/HCPCS: 87086

== ENCOUNTER 2024-08-29 13:19 | Outpatient (CLI) | payer BC, SELFPAY ==
--- OUTSIDE RECORDS SUMMARY | 2024-09-02 13:21 | XMS_ITS | Encounter Summary ---
Author Organization Healthcare Address [address] [place] [address] Care Team Providers Care Filter Changer Name Role Phone Peewee Camargo MD Primary Care Provider [phone] Encounter Details Date Type Department Care Team (Late st Contact Info) Description 07/11/2023 [facility] [address] [place] [address] Megan Velasquez, [employer] [address] [place] [id number] Social History Tobacco Use Types Packs/Day Years [...] on filedocumented in this encounter Care Teams Filter Changer Relationship Specialty Start Date End Date Peewee Camargo MD [address] [place] [address] PCP - General 06/19/20 documented as of this encounter
--- OUTSIDE RECORDS SUMMARY | 2024-09-02 13:21 | XMS_ITS | Data Portability ---
Author Organization [facility] - Andrews stringer MD, Main Office Address [address] [place] [address], [facility] [address] [place] [phone] Assessment No assessment recorded. Plan of Treatment Reminders Order Date Submit Date Provider Last Modified By Organization Details Last Modified Time Details Appointments None record ed. Lab None record ed. Referral None record ed. Procedures None record ed. Surgeries None record ed. Imaging None record ed. Medication Orders None record ed. Patient TargetsNo targets recorded. Patient Instructions Encounter Date Encounter Id Patient Instructions Last Modified By Organization Details Last Modified Time 08/23/2019 [id number] Numbness and Tingling: Care Instructions [email or web address] Not available 08/23/2019 15:17:07 Reason for Referral None Reported. Results Created Date Observation Date Name Description Value Unit Range Abnormal Flag Note LastModifiedBy Organization Detail LastModifiedTime 08/23/1908/23/2019 elect romyo gram + nerve condu ction study No observ ation record ed. BARCODE Not Available 2019 15:11:11 Result Notes None recorded. Problems No Known Problems Procedures Surgical History Date Name Laterality Status Provider Name and Address Organization Details Recorded Time 08/23/2019 NCV/EMG completed Pa Bello MD 08/23/2019 15:02:44 Imaging Results None recorded. Procedure Notes None recorded. Medical Equipment None Reported. Allergies No known drug allergies Medications Name Sig Start Date Stop Date Status Note LastModified by Organization Details LastModified Time amoxicillin 500 mg capsule active Not Available Not Available Not Available azithromycin 250 mg tablet active Not Available Not Available Not Available ibuprofen 800 mg tablet active Not Available Not Available Not Available omeprazole 40 mg capsule,delayed release active Not Available Not Available Not Available methylprednisolone 4 mg tablets in a dose pack active Not Available Not Available No t Available fluticasone propionate 50 mcg/actuation nasal spray,suspension active Not Available Not Avail able Not Available amoxicillin 875 mg-potassium clavulanate 125 mg tablet active Not Available Not Available Not Available Suprep Bowel Prep Kit 17.5 gram-3.13 gram-1.6 gram oral solution active Not Available Not Available Not Available Vitals None Recorded Social History None recorded. Functional Status None recorded. Mental Status None recorded. Family History Nothing Reported. Medical History No medical history recorded. Gynecological HistoryNo gynecological history recorded. Obstetrics History GPAL:G 0 P 0 0 0 0 Past Encounters Encounter ID Performer Location Encounter Start Date Encounter Closed Date Diagnosis/Indication Diagnosis SNOMED-CT Code Diagnosis ICD10 Code Diagnosis Note [id number] Andrews Bello MD Main Office [address] [facility], [facility] [address] [place] [address] 08/23/2019 14:13:38 08/23/2019 15:04:52 Paresthesia 86962674 R20.2 Health Concerns Section Related Observation LastModified by Organization Detai ls LastModified Time None Recorded Concern Status LastModified by Organization Details LastModified Time None Recorded Advance Directives Directive None Recorded Payers Insurance Date Sequence Insurance Name Policy Number Policy Garner Covered Member ID Garner Member ID Guarantor Name 09/10/2019 1 [employer] [id number] Osvaldo Rodas [id number] Jomar Rodas OBGyn Episode No OBEpisode recorded.
--- OUTSIDE RECORDS SUMMARY | 2024-09-02 13:21 | XMS_ITS | Clinical Summary ---
Author Organization [facility] Address [address] [place] [phone] Phone Care Team Providers Care Pillowcase Sewer Name Role Phone Unavailable Primary Care Provider [...] complete this topic [place] [address] [place] [id number] WAY[address] O
--- OUTSIDE RECORDS SUMMARY | 2024-09-02 13:21 | XMS_ITS | Clinical Summary ---
Author Organization [facility] Address [address] [place] [address] Care Team Providers Care Adult Manager Name Role Phone Peewee Camargo MD Primary Care Provider [phone] Social History Tobacco Use Types Packs/Day Years Used Date Smoking Tobacco: Never Assessed Comments Unknown Sex and Gender Information Value Date Recorded Sex Assigned at Not on file Legal Sex Female 7:42 PM EDT Gender Identity Not on file Sexual Orientation Not on file Plan of Treatment Not on file Care Teams Adult Manager Relationship Specialty Start Date End Date Peewee Camargo MD [address] [place] PCP - General 06/19/20
--- OUTSIDE RECORDS SUMMARY | 2024-09-02 13:21 | XMS_ITS | Data Portability ---
Author Organization [place] [facility] [place] [facility] Address [address] [place] [address] Care Team Providers Care Pilates Instructor Name Role Phone HONORIO BABIN Primary Care Provider [phone] Assessment No assessment recorded. Plan of Treatment Reminders Order Date Submit Date Provider Last Modified By Organization Details Last Modified Time Details Appointments None recorded. Lab None recorded. Referral None recorded. Procedures None recorded. Surgeries ureteroscop y with stone basket extraction, holmium laser fragmentati on (SURG) 2023 024 [email or web address] Not available 15:52:37 Imaging US, renal 2023 024 [email or web address] [facility] (Centralized Scheduling), [address] [place], [address], 5 11:33:01 XR, kidney + ureter + bladder 2023 025 [email or web address] [facility] ([facility] Scheduling), [address] [place], [address], 5 11:32:55 Medication Orders oxybutynin chloride ER 10 mg tablet,exte nded release 24 hr 2023 024 [facility], [address] [place] [address] [address] [address], Lisbeth [place], [id number], 4 16:31:29 Patient TargetsNo targets recorded. Patient InstructionsNo instructions recorded. Reason for Referral None Reported. Results Created Date Observation Date Name Description Value Unit Range Abnormal Flag Note LastModifiedBy Organization Detail LastModifiedTime 11/03/1911/13/2023 CALCU BRIDGETT UR ([facility] E [facility] S[facility]) source Kidney Not Available [facility] ([facility]) [address], [place], [address], 11/13/2023 11:12:46 11/03/19 24 11/13/2023 CALCU BRIDGETT UR ([facility] E [facility] SIS) color Brown Not Available [facility] ([facility]) [address], [place], [address], 11/13/2023 11:12:46 11/03/19 24 11/13/2023 CALCU BRIDGETT UR (STON E COY SIS) size 5x4 mm Multi ple piece s recei gauri. Dimen sions of the large st piece repor say. Not Available [facility] ([facility]) [address], [place], [address], 11/13/2023 11:12:46 11/03/19 24 11/13/2023 CALCU BRIDGETT UR ([facility] E [facility] SIS) weight 169 mg Not Available [facility] ([facility]) [address] [address], [place], [address], 11/13/2023 11:12:46 11/03/19 24 11/13/2023 CALCU BRIDGETT UR (ST[facility] E COY SIS) composition Commen t . Perce ntage (Repr esent s the % compo sitio n) Not Available [facility] ([facility]) [address] [facility] [address], [place], [address], 11/13/2023 11:12:46 11/03/19 24 11/13/2023 CALCU BRIDGETT UR (STON E COY SIS) Ca oxalate monohydrate 100 % Not Available [facility] ([facility]) [address], [place], [address], 11/13/2023 11:12:46 11/03/19 24 11/13/2023 CALCU LI, [...] es in compo sitio n. Not Available [facility] ([facility]) [address] [address], [place], [address], 11/13/2023 11:12:46 11/03/19 24 11/13/2023 CALCU LI, UR (STON E COY SIS) comment: Larry Akbar Physi laura quest ions regar ding Calcu li Coy sis conta ct [facility] at: [phone]. Not Available [facility] ([facility]) [address] [facility] [address], [place], [address], 11/13/2023 11:12:46 11/03/19 24 11/13/2023 CALCU LI, UR (STON E COY SIS) please note: Larry Akbar Calcu li repor t will follo w via compu ter, mail or couri chana kwong. Not Available [facility] ([facility]) [address], [place], [address], 11/13/2023 11:12:46 11/03/19 24 11/13/2023 CALCU LI, UR (STON E COY SIS) photo Larry gordillo . Photo graph will follo w under a separ ate cover Not Available [facility] ([facility]) [address] [address], [place], [address], 11/13/2023 11:12:46 11/03/19 24 11/13/2023 CALCU LI, UR (STON E COY SIS) pdf image . Perfo rmed at: [facility] - Lab[facility] r[facility] Itasc a [address] [place], [place] [id number] Lab Direc tor: Abraham brooke PhD, Phone : [phone] Not Available [facility] ([facility]) [address], [place], [address], 11/13/2023 11:12:46 11/03/19 24 11/13/2023 KAUSHIK LEACH (STON E COY SIS) disclaimer: Commen t . This test was devel oped and its perfo rmanc e shonna cteri stics deter mined by [facility]. It has not been clear ed or appro gauri by the Food and Drug Admin istra tion. Not Available [facility] ([facility]) [address] [facility] [address], [place], [address], 11/13/2023 11:12:46 10/31/19 24 10/23/2023 fluor o less than 1 HR [facility] [address] [place] [address] Phone: Fax: Name: JOMAR PENG Exam Date: : [birth year] Age 58 years Gender : F Access ion: [id number] Physic tyler: JHON LAKHANI Facili ty: [facility] Facili ty HSV: Outpat ient Exam: [...] [facility] Leg[facility] y authen ticate d by DAVON Valero 10-24 11:17: 08 CC'ed Logic: Orderi ng Provid er: ART JHON [email or web address] [facility] [address], [place], [address], 10/31/2023 15:20:31 11/06/19 24 11/03/2023 fluor o less than 1 HR [facility] [address] [place] [address] Phone: Fax: Name: JOMAR PENG Exam Date: : [birth year] Age 58 years Gender : F Access ion: [id number] Physic tyler: JHON LAKHANI Facili ty: [facility] Facili ty HSV: Outpat ient Exam: [...] Thank you for [facility]ad [facility] Leg[facility] y authen tickeely d by LIZETTE Valero 11-02 08:49: 30 CC'ed Logic: Orderi ng Provid er: ART JHON Attend ing Provid er: ART JHON Referr ing Provid er: ART JHON Admitt ing Provid er: ART JHON [email or web address] [facility] [address] [facility] [address], [place], [address], 11/06/2023 14:20:42 01/01/20 24 01/01/2024 renal ,bila teral US [facility] Hospit [facility] [address] [place] [address] Phone: Fax: Name: JOMAR PENG Exam Date: 2023 : [birth year] Age 58 years Gender : F Access ion: [id number] 00 [id number] Physic tyler: JHON LAKHANI Facili ty: [facility] Facili ty HSV: Outpat ient Exam: RENAL, [...] you for referr chad [facility]ENG [facility] Leg[facility] y authen ticate d by WILLIE AGUILAR 2023-02 16:11: 40 CC'ed Logic: Orderi ng Provid er: ART JHON Attend ing Provid er: ART JHON Referr ing Provid er: KAR FERREIRA Admitt ing Provid er: KAR FERREIRA [email or web address] [facility] - [facility] [address] , [place], [address], 01/08/2024 08:44:05 Result Notes None recorded. Problems Name Problem SNOMED Code Status Onset Date Resolution Date Notes Provider Name and Address Organization Details Recorded Time Ureteric stone 01811376 Active 024 JHON LAKHANI MD [address], [place], [address] , [place] - [facility] [place] 14:02:37 Acute urinary tract infection 973043941 Active 024 JHON LAKHANI MD [address], [place], [address] , [place] - [facility] [place] [facility] [place] 14:02:43 Increased frequency of urination 856782364 Active 024 JHON LAKHANI MD [address] , [place], [address] , [place] - [facility] [place] 16:18:49 Problem Notes None recorded. Procedures Surgical History Date Name Laterality Status Provider Name and Address Organization Details Recorded Time 11/07/19 Cystoscopy-Femal e completed JHON LAKHANI MD [address] , [place], [address], [place] - [facility] [place] [facility] [place] 11/07/2023 16:18:34 Elbow arthroscopy/surg varghese completed [facility] Louise Master [place] - [facility] [place] 10/31/2023 13:56:47 procedure on foot completed Zahira Louise [place] [facility] [place] 10/31/2023 13:57:01 Total Hysterectomy completed [facility] Louise Master [place] [facility] [place] 10/31/2023 13:57:17 Imaging Results None recorded. Procedure Notes None recorded. Medical Equipment None Reported. Allergies Allergen ID Allergen Name Allergen Category Reaction Reaction Severity Criticality Documentation Date Start Date Code Code System Note Provider Name and Address Organization Details Recorded Time 782250 morphine medicatio n Not available Not available Not available 10/25/2023 7052 RxNorm Mansi Maurer NP, [address] , [place], [address], [facility] & [place] 4 11:44:33 591897 Substance with sulfonami de structure and antibacte rial mechanism of action (substanc e) medicatio n Not available Not available Not available 10/25/2023 29306 8003 SNOMED Crystal SAM Maurer, S [address], [place], [address], [facility] & [place] 4 11:44:45 Medications Name Sig Start Date [...] Last Updated DateTime 160.02 cm 35.8 kg/m2 38178.6 6 g 97 % 97 % 78 /min 137/97 mm[Hg] Zahira Thao [facility] & [place] 13:49:39 Date Recorded Body height Body mass index (BMI) Body weight Provider Name and Address Organization Details Last Updated DateTime 11/07/2023 160.02 cm 35.9 kg/m2 96279.1 g Evita Dan [facility] [place] 11/07/2023 16:02:44 Social History None recorded. Functional [...] SNOMED-CT Code Diagnosis ICD10 Code Diagnosis Note [id number] JHON LAKHANI MD [facility] [place] [address] 10/31/2023 13:02:27 10/31/2023 14:01:36 Ureteric stone 09587530 N20.1 I reviewed the procedure in depth [...] even . Acute urin melvi tract infection 191711883 N39.0 Patient has completed antibiotic course. [id number] JHON LAKHANI MD [facility]-[address] [place] [address] 11/07/2023 15:28:21 11/07/2023 16:20:14 Ureteric stone 46918585 N20.1 Stent removed today without difficulty . We will plan for renal ultrasound in 6 weeks with KUB and follow up in 6 months. Increased frequency of urination 580367857 R35.0 We will start oxybutynin XL 10 [...] Garner Member ID Guarantor Name 11/07/2023 1 SHANELL (PPO) [id number] Osvaldo Peng [id number] Jomar Peng 10/30/2023 1 NURYS-TREVON (PPO) Osvaldo Peng [id number] Jomar Peng OBGyn Episode No OBEpisode recorded.
== END 2024-08-29 23:59 ==
LOC: LAB.DROPOF 09-02 13:20
PROVIDERS: PCP Internal Medicine Adolescent Medicine; Visit Provider Nurse Practitioner Family
DX: R39.15 Urgency of urination (principal)
CPT/HCPCS: 87086

== ENCOUNTER 2024-10-17 07:45 | Outpatient (CLI) | payer BC, SELFPAY ==
--- OUTSIDE RECORDS SUMMARY | 2024-10-17 07:47 | XMS_ITS | Clinical Summary ---
Author Organization [facility] Address [address] [place] [address] Care Team Providers Care Collision Worker Name Role Phone Peewee Camargo MD Primary Care Provider [phone] Social History Tobacco Use Types Packs/Day Years Used Date Smoking Tobacco: Never Assessed Comments Unknown Sex and Gender Information Value Date Recorded Sex Assigned at Not on file Legal Sex Female 7:42 PM EDT Gender Identity Not on file Sexual Orientation Not on file Plan of Treatment Not on file Care Teams Collision Worker Relationship Specialty Start Date End Date Peewee Camargo MD [address] [place] PCP - General 06/19/20
--- OUTSIDE RECORDS SUMMARY | 2024-10-17 07:47 | XMS_ITS | Clinical Summary ---
Author Organization [facility] Address [address] [place] [phone] Phone Care Team Providers Care All Terrain Vehicle Racer Name Role Phone Unavailable Primary Care Provider [...] of 2) 2017 COVID-19 Vaccine (3 - 2024-2 6 season) 2024 11/17/2020, 10/23/2020 Influenza Vaccine (#1) 2024 Meningococcal B Vaccine Aged Out No l onger eligible based on patient's age to complete this topic [place] [id number] WAYNE O
--- OUTSIDE RECORDS SUMMARY | 2024-10-17 07:47 | XMS_ITS | Encounter Summary ---
Author Organization [facility] Address [address] [place] [address] Care Team Providers Care Skip Load Driver Name Role Phone Peewee Camargo MD Primary Care Provider [phone] Encounter Details Date Type Department Care Team (Late st Contact Info) Description 07/11/2023 Community [facility] [address] [place] [address] Megan Velasquez, MOBILE DEVICE DEVELOPER [address] [place] [phone] Social History Tobacco Use Types Packs/Day Years [...] on filedocumented in this encounter Care Teams Skip Load Driver Relationship Specialty Start Date End Date Peewee Camargo MD [address] [place] [address] PCP - General 06/19/20 documented as of this encounter
--- OUTSIDE RECORDS SUMMARY | 2024-10-17 07:47 | XMS_ITS | Patient Health Record ---
[facility] Address [address] [place] [id number] Care Team Providers Care Nail Specialist Name Role Phone Brooke Molina Primary Care Provider Allergies Allergen (clinical drug ingredient) Drug/Non Drug Allergy documented on EMR Reaction Allergy Type Onset Date Status Sulfamethoxazole Unknown Drug Allergy Active morphine Morphine Unknown Drug Allergy Active Reason For Referral No Information Medications Medication SIG (Take, Route, Frequency, Duration) Notes Start Date End Date Status Cyclobenzaprine HCl 10 MG 1 tab(s) orall y 3 times a day 12/30/2019 Not-Taking Omeprazole 40 MG 1 cap(s) orally once a day; Duration: 30 days Active Dicyclomine HCl 20 MG 1 tab(s) orally 4 times a day, prn 09/18/2020 Not-Taking predniSONE 20 MG 1 tab(s) bid x 5 day s then 1 tab qd x 5 days orally 12/30/2019 Not-Taking Linzess 72 MCG 1 cap(s) orally once a day in the am with a full glass of water; Duration: 30 day(s) 09/18/2020 Not-Taking Tylenol Extra Strength 500 MG orally prn Active Immunizations Vaccine Route Administration Date Status Comme nts DT, 7 YEARS OR OLDER Unknown 07/28/1998 Administered DT, 7 YEARS OR OLDER Unknown 07/28/1998 Administered COVID 19 Pfizer Unknown 10/23/2020 Administered COVID 19 Pfizer Unknown 11/17/2020 Administered Problems Problem Type SNOMED Code ICD Code Onset Dates Problem Status W/U Status Risk Notes Problem Constipation (53986330) Constipation (K59.00) Active confirmed Problem Gastroesophageal reflux disease without esophagitis (483626928) Gastroesophageal reflux disease without esophagitis (K21.9) Active confirmed Problem Pharyngeal dysphagia (98271928511822) Pharyngeal dysphagia (R13.13) Active confirmed Problem Bilateral carpal tunnel syndrome (44417068934821590) Bilateral carpal tunnel syndrome (G56.03) Active confirmed Problem Thyromegaly (0732888) Thyromegaly (E01.0) Active confirmed Plan Of Treatment No Information Insurance Providers Payer Name Payer Address Payer Phone Subscriber Number Group Number Insured Name Patient Relationship to Insured Coverage Start Date Coverage End Date WAYNE [place] [facility] [address] [place] [address] [id number] LOUISA PENG Self - patient is the insured Medical (General) History Medical History History ICD Code allergic rhinitis colonoscopy on 06/13/2019 Surgical History Surgery Date(Month/Year) right elbow right shoulder right wrist Breast reduction tubal ligation hysterectomy vaginal left foot x2 EGD Colonoscopy
--- NOTE | 2024-10-17 07:51 | CT_ITS ---
FINAL REPORT TECHNIQUE: Pre-and postcontrast axial imaging of the abdomen and pelvis was obtained.This study was performed with techniques to keep radiation doses as low as reasonably achievable, (ALARA). Individualized dose reduction technique using automated exposure control or adjustment of mA and/or kV according to the patient's size were employed. CLINICAL HISTORY: acute ABD PAIN, hx recent of kidney stones. still having flank pain that radiates down to posterior pelvic area COMPARISON: 10/23/2023 FINDINGS: The lung bases are clear. The liver is homogeneous. The gallbladder is present. The spleen, adrenal glands, and pancreas are unremarkable. The previously identified left UPJ stone is no longer identified. There is no obstructing stone or hydronephrosis. Hypodense lesion in the right kidney is favored to be a cyst. Abdominal GI tract is unremarkable. There is no lymphadenopathy or ascites. The appendix is not identified but there are no secondary findings to suggest appendicitis. Patient is status post hysterectomy. There is no lymphadenopathy or ascites. No acute osseous abnormalities identified. IMPRESSION: Previously identified left UPJ stone no longer identified. No acute intra-abdominal abnormality Reviewed, Interpreted and Dictated by Pilar Tompkins MD Transcribed by Krystal Oliver Authenticated and [facility]
[2024-10-17 08:20] LABS: Blood Urea Nitrogen 16 mg/dl (7-17); Creatinine,Serum 0.90 mg/dl (0.52-1.04); Estimated Glomerular Filt Rate 65 ml/min (>60); GFR (African American) 78 ML/MIN (>60)
[2024-10-17] MEDS: SODIUM CHLORIDE 0.9% 10ML SYR (RAD ONLY) 10 ML IV (08:50)
[2024-10-17] MEDS: IOPAMIDOL-370 (76%);100ML BOTTLE 75 ML IV (08:50)
== END 2024-10-17 23:59 | disposition home or self-care (01) ==
LOC: RAD 07:46
PROVIDERS: PCP Internal Medicine Adolescent Medicine
DX: R10.9 Unspecified abdominal pain (principal)
CPT/HCPCS: 36415; 74178; 82565; 84520; Q9967

== ENCOUNTER 2024-12-09 09:49 | Outpatient (CLI) | payer BC, SELFPAY ==
--- NOTE | 2024-12-09 09:51 | US_ITS ---
FINAL REPORT TECHNIQUE: Sonographic images of the kidneys and retroperitoneum were obtained in the longitudinal and transverse planes. CLINICAL HISTORY: KIDNEY LESION COMPARISON: CT abdomen and pelvis 10/17/2024 FINDINGS: The right kidney measures 11.2 cm in ctkj-pj-icwk length. No hydronephrosis, mass, or stone. Hypodense lesion seen on CT scan is not identified on ultrasound. Cortical echogenicity and thickness are normal. The left kidney measures 9.6 cm in lrqq-we-tmdg length. No hydronephrosis, mass, or stone. Cortical echogenicity and thickness are normal. Limited evaluation of the spleen and liver demonstrate no acute abnormality. IMPRESSION: Morphologically normal kidneys bilaterally. Lesion on CT not identified on ultrasound. Reviewed, Interpreted and Dictated by Pilar Tompkins MD Transcribed by Serena Martin Authenticated and . [facility]
--- OUTSIDE RECORDS SUMMARY | 2024-12-09 10:03 | XMS_ITS | Clinical Summary ---
Author Organization [facility] Address [address] [place] [address] Care Team Providers Care Bit Sharpener Name Role Phone Peewee Camargo MD Primary Care Provider [phone] Social History Tobacco Use Types Packs/Day Years Used Date Smoking Tobacco: Never Assessed Comments Unknown Sex and Gender Information Value Date Recorded Sex Assigned at Not on file Legal Sex Female 7:42 PM EDT Gender Identity Not on file Sexual Orientation Not on file Plan of Treatment Not on file Care Teams Bit Sharpener Relationship Specialty Start Date End Date Peewee Camargo MD [address] [place] PCP - General 06/19/20
--- OUTSIDE RECORDS SUMMARY | 2024-12-09 10:03 | XMS_ITS | Clinical Summary ---
Author Organization [facility] Address [address] [place] [phone] Phone Care Team Providers Care Sociology Instructor Name Role Phone Unavailable Primary Care Provider [...] complete this topic [place] [place] [id number] WAYNE O
--- OUTSIDE RECORDS SUMMARY | 2024-12-09 10:03 | XMS_ITS | Encounter Summary ---
Author Organization [facility] Address [address] [place] [address] Care Team Providers Care Route Salesperson Name Role Phone Peewee Camargo MD Primary Care Provider [phone] Encounter Details Date Type Department Care Team (Late st Contact Info) Description 07/11/2023 Community [facility] [address] [place] [address] Megan Velasquez, REGISTERED PHARMACY TECHNICIAN [address] [place] [phone] Social History Tobacco Use Types Packs/Day Years [...] on filedocumented in this encounter Care Teams Route Salesperson Relationship Specialty Start Date End Date Peewee Camargo MD [address] [place] [address] PCP - General 06/19/20 documented as of this encounter
== END 2024-12-09 23:59 | disposition home or self-care (01) ==
LOC: RAD 09:50
PROVIDERS: PCP Nurse Practitioner Family; Visit Provider Nurse Practitioner Family
DX: N28.9 Disorder of kidney and ureter, unspecified (principal)
CPT/HCPCS: 76770